=== PATIENT | female | born 1945 | race Caucasian/White ===

== ENCOUNTER 2016-10-25 19:04 | Observation (INO) ==
[2016-10-25] MEDS ORDERED: 0.9 % Sodium Chloride 500 ML IVC ONE (19:27)
[2016-10-25] MEDS ORDERED: Ondansetron 4 MG/2 ML VIAL IVP ONE (19:27)
--- NOTE | 2016-10-25 19:39 | Emergency Department Note ---
Disposition Clinical Impression: Dizziness, Vertigo, Near syncope, Gait difficulty Intractable headache Qualifiers: Headache type: unspecified Headache chronicity pattern: unspecified pattern Qualified Code(s): R51 - Headache Disposition: Admitted As Inpatient Condition: Fair Time of Disposition: 00:47 Headache HPI - General Chief Complaint: ED Headache Stated Complaint: vomiting this am/dizzy Time Seen by Provider: 10/25/16 19:24 Source: patient Mode of arrival: ambulatory Limitations: no limitations Nursing Notes Reviewed: Yes Vital Signs Reviewed: Yes - History of Present Illness HPI Narrative: 71-year-old female with acute onset headache this morning, patient's had multiple episodes of emesis throughout the day, she describes an 8 out of 10 throbbing aching right pentecostal radiating to the back or right side. She has also had dizziness and lightheadedness throughout the day. He feels very dehydrated. She does not have a history of aneurysms, or stroke. Pt Subjective Complaint: headache Onset (ago): hour(s) Onset description: sudden Location: frontal Pain Scale: 10 Quality: throbbing, pulsatile Improves with: nothing Associated symptoms: Reports: none, nausea, vomiting. Denies: chest pain, cough , diaphoresis, fever, malaise, photophobia, phonophobia, syncope, vision changes , SOB, numbness, weakness Treatments prior to arrival: none - Related Data Home Medications Medication Instructions Recorded Confirmed Aspirin 81 mg PO DAILY 06/01/16 06/01/16 Calcium Carbonate [Calcium] 600 mg PO BID 06/01/16 06/01/16 Cinnamon Bark [Cinnamon] 500 mg PO DAILY 06/01/16 06/01/16 Diltiazem HCl [Cardizem LA] 120 mg PO DAILY 06/01/16 06/01/16 Famotidine [Heartburn Prevention] 20 mg PO BID 06/01/16 06/01/16 Insulin ASPART [Novolog Flexpen] 0 unit SQ PRN PRN 06/01/16 06/01/16 Insulin Glargine,Hum.rec.anlog 25 unit SQ HS 06/01/16 06/01/16 [Lantus Solostar] Insulin Glargine,Hum.rec.anlog 35 unit SQ QAM 06/01/16 06/01/16 [Lantus Solostar] LORazepam [Ativan] 0.5 mg PO HS 06/01/16 06/01/16 Meclizine HCl [Verticalm] 25 mg PO Q6H PRN 06/01/16 06/01/16 Metformin HCl [Glucophage] 1,000 mg PO BID 06/01/16 06/01/16 Metoprolol [Lopressor] 25 mg PO BID 06/01/16 06/01/16 Nitroglycerin [Nitrostat] 0.4 mg SL AD PRN 06/01/16 06/01/16 Nystatin POWDER [Nystop] 1 appl TP DAILY 06/01/16 06/01/16 Pravastatin Sodium [Pravachol] 40 mg PO DAILY 06/01/16 06/01/16 Vitamin B Complex Vit C No.4 150 mg PO DAILY 06/01/16 06/01/16 [Super B Complex] Previous Rx's Medication Instructions Recorded Levofloxacin [Levaquin] 750 mg PO DAILY #5 tablet 06/04/16 Allergies Allergy/AdvReac Type Severity Reaction Status Date / Time No Known Allergies Allergy Verified 06/01/16 15:14 All systems ED: reviewed and negative except as stated. Constitutional: Denies: fever, chills ENT ED: Reports: as per HPI Cardiovascular: Reports: as per HPI. Denies: chest pain, palpitations Respiratory: Denies: cough, dyspnea Gastrointestinal: Reports: as per HPI, nausea, vomiting. Denies: abdominal pain Neurological: Reports: as per HPI, headache, vertigo. Denies: weakness, numbness, paresthesias, confusion, abnormal gait Headache PMH - Past Medical History Medical history: Reports: atrial fibrillation, coronary artery disease, diabetes , hyperlipidemia, hypertension Psychiatric history: Reports: no psych history - Social History Smoking Status: Never smoker Alcohol use: Reports: none Drug use: Reports: none Physical Exam Constitutional: Female appears stated age in mild distress appears uncomfortable. HEENT: NCAT, sclera anicteric, PERRLA bilaterally, normal external ears bilaterally, nasal septum nondeviated, average dentition, MMM Neck: normal inspection, neck is supple, trachea midline Resp: normal chest inspection, CTA bilaterally, no resp distress CV: RRR, no m/g/r GI: normal inspection, Soft, NTND, BS present Back: normal inspection, no tenderness to palpation Neuro: HINTS exam given normal head impulse test, equal upper and lower extremity muscle strength, DTRs normal upper and lower extremity is, pupils equal round reactive light accommodation, some bidirectional vertical nystagmus , reproduce symptoms with supine positioning however no unilateral segments appreciated on [place] Hall[place], somewhat ataxic from wheelchair to bed MSK: normal inspection, bilateral UE and LE with normal ROM Psych: normal mood, normal affect Skin: No rashes, skin warm, dry, intact - General Limitations: no limitations General appearance: alert Course Course Narrative: 8-year-old female with vertiginous symptoms, concerning neurologic exam for possible central lesion and given her symptoms she is very nauseated will try antiemetics, CT scan first and may need MRI or CTA, basic lab work reassess. - Reevaluation(s) Reevaluation #1: Psoas symptoms given Zofran and fluids we will give an additional liter of fluids, she does not appear to be in atrial fibrillation at this time, but she is not B hypertense will treat hypertension as needed, get MRI of the head, adding Reglan and Benadryl meclizine was ineffective in relieving her symptoms. Time: 21:11 Reevaluation #2: After imaging is negative, we tried road test the patient she was unable to ambulate, without reproducing her symptoms, she was mildly hypertensive systolic 180, still has a headache and feels dizzy and vertiginous when she tries to ambulate, given that she lives alone at home, is unsafe environment to discharge, I did state with the hospitalist and he agrees Dr. Tripp to accept the patient for admission Time: 00:46 Vital Signs Temperature 98.1 F 10/25/16 19:09 Pulse Rate 72 10/25/16 19:09 Respiratory Rate 18 10/25/16 19:09 Blood Pressure 187/82 10/25/16 19:09 O2 Sat by Pulse Oximetry 96 10/25/16 19:09 Temperature 98.1 F 10/25/16 19:09 Pulse Rate 74 10/25/16 21:54 Respiratory Rate 16 10/26/16 01:17 Blood Pressure 155/74 10/26/16 01:17 O2 Sat by Pulse Oximetry 95 10/25/16 21:54 Oxygen Delivery Oxygen Delivery Room Air Headache - MDM Narrative Medical decision making narrative: -year-old female with vertigo headache dizziness, admitted to medicine service for further workup. - Differential Diagnosis Differential Diagnosis: Likely: migraine, tension headache, subarachnoid hemorrhage, headache - Medical Records Medical records reviewed: Yes I reviewed the patient's medical records. - Lab Data Lab results reviewed: Yes I reviewed the patient's lab results. Result diagrams: 10/25/16 19:40 10/25/16 19:40 Lab Results 10/25/16 10/25/16 10/25/16 Range/Units 19:40 19:40 19:40 WBC 13.8 H (4.3-11.1) K/mcL RBC 4.71 (3.82-4.97) M/mcL Hgb 13.0 (11.5-15.4) g/dL Hct 41.4 (35.3-44.9) % MCV 87.9 (83.0-100.0) fL MCH 27.6 L (28.0-33.3) pg MCHC 31.4 L (31.6-35.5) g/dL RDW 14.1 (11.5-14.5) % Plt Count 284 (140-400) K/mcL MPV 11.8 (9.4-12.4) fL Immature Gran % 0.4 (0-4) % Seg Neutrophils % 87.2 % Lymphocytes % 8.5 % Monocytes % 3.6 % Eosinophils % 0.1 % Basophils % 0.2 % Neutrophils # 12.0 H (1.6-8.9) K/mcL Lymphocytes # 1.2 (0.6-4.6) K/mcL Monocytes # 0.5 (0.0-1.3) K/mcL Eosinophils # 0.0 (0.0-0.6) K/mcL Basophils # 0.0 (0.0-0.2) K/mcL PT 11.2 (9.4-12.1) Seconds INR 1.0 APTT 32.0 (26.0-36.0) Seconds Sodium 141 (136-145) mEq/L Potassium 3.7 (3.5-4.5) mEq/L Chloride 102 (98-109) mEq/L Carbon Dioxide 26 (19-29) mEq/L BUN 10 (7-20) mg/dL Creatinine 0.68 (0.57-1.11) mg/dL Est GFR ( Amer) > 60 (> 60) Est GFR (Non-Af Amer) > 60 (> 60) BUN/Creatinine Ratio 15 (6-26) Glucose 131 H (70-99) mg/dL POC Glucose (58-89) Calculated Osmolality 293 (280-300) Calcium 9.4 (8.6-10.8) mg/dL Troponin I (0-0.03) ng/mL Urine Color (Yellow) Urine Clarity (Clear) Urine pH (5.0-8.0) pH Units Ur Specific Raymond (1.010-1.025) Urine Protein (Neg-Trace) mg/dL Urine Glucose (UA) (Normal) mg/dL Urine Ketones (Negative) mg/dL Urine Blood (Negative) Urine Nitrite (Negative) Urine Bilirubin (Negative) Urine Urobilinogen (Normal) mg/dL Ur Leukocyte Esterase (Negative) Urine Microscopic RBC (0-3) per hpf Urine Microscopic WBC (0-3) per hpf Ur Squamous Epith Cells (None-Few) per lpf Urine Bacteria (None-Few) per hpf Hyaline Casts (None-Few) per lpf Ur Culture Indicated? (NO) 10/25/16 10/25/16 10/25/16 Range/Units 19:40 19:40 21:40 WBC (4.3-11.1) K/mcL RBC (3.82-4.97) M/mcL Hgb (11.5-15.4) g/dL Hct (35.3-44.9) % MCV (83.0-100.0) fL MCH (28.0-33.3) pg MCHC (31.6-35.5) g/dL RDW (11.5-14.5) % Plt Count (140-400) K/mcL MPV (9.4-12.4) fL Immature Gran % (0-4) % Seg Neutrophils % % Lymphocytes % % Monocytes % % Eosinophils % % Basophils % % Neutrophils # (1.6-8.9) K/mcL Lymphocytes # (0.6-4.6) K/mcL Monocytes # (0.0-1.3) K/mcL Eosinophils # (0.0-0.6) K/mcL Basophils # (0.0-0.2) K/mcL PT (9.4-12.1) Seconds INR APTT (26.0-36.0) Seconds Sodium (136-145) mEq/L Potassium (3.5-4.5) mEq/L Chloride (98-109) mEq/L Carbon Dioxide (19-29) mEq/L BUN (7-20) mg/dL Creatinine (0.57-1.11) mg/dL Est GFR ( Amer) (> 60) Est GFR (Non-Af Amer) (> 60) BUN/Creatinine Ratio (6-26) Glucose (70-99) mg/dL POC Glucose 131 H (58-89) Calculated Osmolality (280-300) Calcium (8.6-10.8) mg/dL Troponin I 0.02 (0-0.03) ng/mL Urine Color Yellow (Yellow) Urine Clarity Clear (Clear) Urine pH 7.5 (5.0-8.0) pH Units Ur Specific Raymond 1.019 (1.010-1.025) Urine Protein 30 H (Neg-Trace) mg/dL Urine Glucose (UA) Normal (Normal) mg/dL Urine Ketones 40 H (Negative) mg/dL Urine Blood Moderate H (Negative) Urine Nitrite Negative (Negative) Urine Bilirubin Negative (Negative) Urine Urobilinogen Normal (Normal) mg/dL Ur Leukocyte Esterase Negative (Negative) Urine Microscopic RBC 15-30 H (0-3) per hpf Urine Microscopic WBC 5-15 H (0-3) per hpf Ur Squamous Epith Cells Many H (None-Few) per lpf Urine Bacteria Few (None-Few) per hpf Hyaline Casts None Seen (None-Few) per lpf Ur Culture Indicated? YES A (NO) - Radiology Data Radiology results reviewed: Yes I reviewed the patient's radiology results. Chest X-Ray 10/25/16 19:27 IMPRESSION: No acute cardiopulmonary disease. D/ / 10/25/2016 20:01:21 Eleazar Schmidt MD / bcarter Interpreting Provider: Eleazar Schmidt MD Head CT 10/25/16 19:38 IMPRESSION: No acute intracranial abnormality. D/ / Gilmar Gonzalez MD / Gilmar Gonzalez MD Interpreting Provider: Gilmar Gonzalez MD Brain MRI 10/25/16 20:53 IMPRESSION: No acute infarct. D/ / Gilmar Gonzalez MD / Gilmar Gonzalez MD Interpreting Provider: Gilmar Gonzalez MD - EKG Data EKG attestation: Yes I reviewed and interpreted this EKG. EKG shows normal: sinus rhythm (73 bpm GA 200 QRS 109 QTC 411) Perry/QRS: LAHB/LAFB Interpretation: no acute changes, unchanged when compared to prior tracing (date ) (Previous EKG left anterior vesicular block is stable) - Core Measures AMI Core Measures Followed: No Measure Exclusions: not indicated Attestation Statement - Attestation Attestation: I, Aguilar Jaramillo MD, personally performed a history and physical exam of the patient and discussed their management with the resident. I reviewed the resident's note and agree with the documented findings, medical decision making , and plan of care. 71-year-old female persisted emergency department with a complaint of right sided headache associated with dizziness and vertigo with multiple episodes of nausea and vomiting. She has had symptoms most of the day. No fever. No difficulty with speech or swallowing. No focal numbness tingling or weakness. Patient lives alone. On examination patient is a well-developed obese elderly female in no acute distress. She is alert and oriented 3. There is no cyanosis or diaphoresis. No gross focal neurological deficits. Breath sounds are equal bilaterally. Heart regular rate and rhythm with a grade 2/6 systolic murmur. Abdomen is soft and nontender with normal bowel sounds. Labs reviewed. Head CT negative. MRI of the brain was also negative. Patient continued to have nausea and dizziness and difficulty standing or ambulating. The hospitalist, Dr. Tripp, was consulted and accepted admission of the patient.
[2016-10-25 19:47] LABS: Basophils % 0.2 %; Eosinophils % 0.1 %; Hematocrit 41.4 % (35.3-44.9); Immature Granulocytes % 0.4 % (0-4); Lymphocytes # 1.2 K/mcL (0.6-4.6); Lymphocytes % 8.5 %; Mean Corpuscular HGB Conc 31.4 g/dL (31.6-35.5); Mean Corpuscular Hemoglobin 27.6 pg (28.0-33.3); Mean Corpuscular Volume 87.9 fL (83.0-100.0); Mean Platelet Volume 11.8 fL (9.4-12.4); Monocytes # 0.5 K/mcL (0.0-1.3); Monocytes % 3.6 %; Platelet Count 284 K/mcL (140-400); Red Blood Count 4.71 M/mcL (3.82-4.97); Red Cell Distribution Width 14.1 % (11.5-14.5); Segmented Neutrophils % 87.2 %
[2016-10-25 19:52] LABS: Prothrombin Time 11.2 Seconds (9.4-12.1)
[2016-10-25 20:00] LABS: BUN/Creatinine Ratio 15 (6-26); Blood Urea Nitrogen 10 mg/dL (7-20); Calcium 9.4 mg/dL (8.6-10.8); Carbon Dioxide 26 mEq/L (19-29); Chloride 102 mEq/L (98-109); Glucose 131 mg/dL (70-99); Osmolality,Calculated 293 (280-300); Potassium 3.7 mEq/L (3.5-4.5); Sodium 141 mEq/L (136-145); eGFR For African Americans > 60 (> 60); eGFR For Non-African Americans > 60 (> 60)
[2016-10-25] MEDS ORDERED: *HR* HYDROmorphone (PF) 1 MG/ML SYRINGE IVP ONE (20:43)
[2016-10-25] MEDS ORDERED: 0.9 % Sodium Chloride 1,000 ML IV ONE (21:06)
[2016-10-25] MEDS ORDERED: Metoclopramide 10 MG/2 ML VIAL IVP ONE (21:06)
[2016-10-25 21:54] LABS: Bilirubin,Urine Negative (Negative); Blood,Urine Moderate (Negative); Clarity,Urine Clear (Clear); Color,Urine Yellow (Yellow); Glucose,Urine (UA) Normal (Normal); Ketones,Urine 40 mg/dL (Negative); Leukocyte Esterase,Urine Negative (Negative); Nitrite,Urine Negative (Negative); PH,Urine 7.5 pH Units (5.0-8.0); Protein,Urine 30 mg/dL (Neg-Trace); Specific Gravity,Urine 1.019 (1.010-1.025); Urobilinogen,Urine Normal (Normal)
[2016-10-25 21:56] LABS: Bacteria,Urine Few per hpf (None-Few); Hyaline Casts,Urine None Seen per lpf (None-Few); RBC,Urine 15-30 per hpf (0-3); Squamous Epithelial Cell,Urine Many per lpf (None-Few)
[2016-10-26] MEDS ORDERED: Nitroglycerin 0.4 MG TAB.SUBL SL PRN (03:23)
[2016-10-26] MEDS ORDERED: Acetaminophen 325 MG TABLET PO PRN (03:26)
[2016-10-26] MEDS ORDERED: *HR* Morphine 2 MG/ML SYRINGE IVP PRN (03:26)
[2016-10-26] MEDS ORDERED: *HR* OxyCODONE Immed Rel 5 MG TABLET PO PRN (03:26)
[2016-10-26] MEDS ORDERED: Ondansetron 4 MG/2 ML VIAL IVP PRN (03:26)
[2016-10-26] MEDS ORDERED: Naloxone 0.4 MG/ML INJ IVP PRN (03:26)
[2016-10-26] MEDS ORDERED: Scopolamine Patch 1.5 MG PATCH.TD72 TD ONE (03:33)
--- NOTE | 2016-10-26 03:35 | Internal Med History&Physical ---
Date of Encounter: 10/26/16 Time of Encounter: 03:00 Assessment and Plan (1) Postural dizziness with near syncope Status: Acute . (2) Positional vertigo Status: Acute . Qualifiers: Laterality: unspecified laterality Qualified Code(s): H81.10 - Benign paroxysmal vertigo, unspecified ear (3) PAF (paroxysmal atrial fibrillation) Status: Acute . (4) Ataxic gait Status: Acute . (5) Type 2 diabetes mellitus Status: Chronic . Qualifiers: Diabetes mellitus complication status: with unspecified complications Diabetes mellitus half-way insulin use: without long term care social worker use Qualified Code( s): E11.8 - Type 2 diabetes mellitus with unspecified complications (6) HTN (hypertension) Status: Chronic . Qualifiers: Hypertension type: essential hypertension Qualified Code(s): I10 - Essential (primary) hypertension (7) HLD (hyperlipidemia) Status: Chronic . Qualifiers: Hyperlipidemia type: mixed hyperlipidemia Qualified Code(s): E78.2 - Mixed hyperlipidemia (8) CAD (coronary artery disease), [place] coronary artery Status: Chronic . Qualifiers: [place] vs. transplanted heart: [place] heart Associated angina: angina presence unspecified Qualified Code(s): I25.10 - Atherosclerotic heart disease of [place] coronary artery without angina pectoris (9) Obesity (BMI 30-39.9) Status: Chronic . (10) At risk for accident in home Status: Acute . (11) At risk for acid-base imbalance Status: Acute . (12) At risk for acute ischemic cardiac event Status: Acute . (13) Abnormal urinalysis Status: Acute . (14) Generalized weakness Status: Acute . (15) Intractable headache Status: Acute . Qualifiers: Headache type: unspecified Headache chronicity pattern: unspecified pattern Qualified Code(s): R51 - Headache (16) Nausea vomiting and diarrhea Status: Acute . (17) Electrolyte and fluid disorders not elsewhere classified Status: Acute . (18) Hypoxemia Status: Acute . Internal Medicine - H&P: HPI Chief complaint: Severe headache nausea vomiting dizziness Admitted From: Emergency Dept Plans for Post Hospital Care: Home History of present illness: Ms. Cyr is a 71 year old female with medical history significant for type II DM, hypertension, dyslipidemia, arthritis, osteopenia, paroxysmal atrial fibrillation, GERD, periodic positional vertigo, CAD, obesity, nonsmoker. The patient was visited and interviewed and examined. The patient was admitted to [facility] via the emergency department which presents with complaints of intractable headache associated with multiple episodes of emesis and generalized malaise. She began the morning of the presentation upon arising from sleep. The headache escalated promptly throughout the morning to an 8/10 in severity. Dropping constant focus primarily to the right sabianist and radiating up along the right side to occiput. She noted associated lightheadedness and dizziness throughout the day. She still generally weak and dehydrated. Gait was affected to be unsteady to the extent where she would leave into boswell, stumble and fall. Headache pain when most severe was rated as a 10/10 severity with a throbbing pulsatile quality. He denied any associated scotomata. Denied any prodromal aura taste sensation smell. She has experienced some sinus congestion and nasal stuffiness prior to onset of current symptoms. Denies any altered hearing tinnitus or ear pain. Denies any overt chest pain abdominal pain. Denied any upper or lower respiratory complaints of cough sputum production. Denied fever chills or sweats. I had photophobia. No paresthesias or weakness slurred speech the positional dizziness and vertiginous symptoms with the room spinning about her head were noted times. Her cataracts to sit to void following symptoms of near syncope. These symptoms have been pretty stereotypic of previous episodes which have seemed similar to be short lived. Formal diagnosis has not been given for these events. He is not undergone any formal ear nose and throat or neurology consulting opinions. Findings in the ED: Temperature 98.1 pulse 70-74 respirations 14-18 BP 180-170/ 75-82. O2 saturation 93-96% room air. WBC 13.8 hemoglobin 13 platelets 284, 000. MCH 27.6 MCHC 31.4. Differential showed an increase in neutrophils. PT 11.2 INR 1 PTT 32. Metabolic panel normal. BUN and creatinine 0.68. Glucose 131 and osmolality 293. Troponin 0.02. Urinalysis findings large protein. Large ketone. Moderate blood. PRBC. 15 WBC. Many epithelial cells. Bacteria. Portable chest x-ray demonstrated no acute or active cardiopulmonary disease. Calcified granuloma left lung base noted. Sclera focal mass infiltrate or effusion. Heart and mediastinal structures stable. CT had scan without contrast demonstrated no acute intracranial abnormality. Mild nonspecific periventricular white matter hypodensities. Calcified granuloma left frontal lobe. No intracranial mass, shift, bleed, infarct or fluid collection seen. Mobitz sinuses soft tissue and skull. MRI brain without contrast demonstrates no acute infarct. Volume loss with chronic white matter microvascular ischemic disease noted. No mass, shift, bleed or fluid collection seen. sinuses dose soft tissues benign. EKG normal sinus rhythm. Left anterior fascicular block. Rate 73. No acute ischemic changes. Preliminary impressions suggest benign periodic positional vertigo exacerbation in patient with prior history of such. Association of intractable headaches and somatic complaints of nausea vomiting diarrhea is question of possible inciting event such as viral syndrome. The headache itself may suggest a migraine equivalent with vertiginous complaints as a consequence of a complicated migraine picture. She has not undergone any formal ear nose and throat or neurologic assessments over the years although she has been treated empirically with meclizine by a primary care physicians for this condition. The meclizine treatment however she is found to be at times a ineffective. A prescription to be less so prior to this admission. She acknowledges chronic recurring sinusitis complaints and reports subsequent symptoms of this presently. Exam however is rather benign except for evident exacerbation of vertiginous symptoms with movement and headache complaints. Screening studies thus far suggests a relative systemic inflammatory response syndrome. Sepsis criteria are not met that this presentation nor is a specific site of infection apparent. The repetitive nature of these symptoms motivates formal evaluation to rule out potential vascular lesion of concern (such as, basilar artery insuffiency) versus mass versus acute thrombosis/ischemia, etc.. The patient is at risk for acute clinical decline and morbidity given her presenting symptoms, findings and coronary disease workup and treatment progress comprehensively. Cumulative laboratory and radiographic data base was reviewed, considered and discussed. Pertinent ancillary medical records including ECW and PCI documentation was reviewed and considered. Given the patient's presenting concerns, past medical history, clinical findings and symptoms, she is admitted at this time will undergo further evaluation and disposition. Orders were written as per the computerized physician tinning machine set up operator system.......................................................................... .................... Consultative opinions will be sought as clinical circumstances justify. Pain management needs will be addressed. Laboratory and radiographic data base will be updated as appropriate. Studies include: Cultures of blood and urine, prolactin,PT,INR,APTT, cardiac injury panel, BNP, metabolic and hematologic panel, magnesium, phosphorus, ionized calcium, thyroid panel, lipid profile, A1c, C-peptide, CRP, sedimentation rate, blood gas, lactic acid, UA, serologies, etc. Precautions: Aspiration, fall, delirium protocol/surveillance initiated. Telemetry with continuous hemodynamic monitoring and pulse oximetry initiated. Orthostatic vital signs. Empiric antibiotic coverage: Intravenous Rocephin pending diagnostics/culture data (?UTI ?URI). Special studies: CT head,MRI brain, MRA head and neck, chest x-ray, telemetry, EKG, echocardiogram. Pulmonary toilet: Incentive spirometry. Aerosol bronchodilator, mucolytic, antitussivePRN. Supplemental oxygen. Corticosteroid therapyPRN. CPAP/BiPAP supplemental oxygen deliveryprn. Aerosol Mucomyst therapyprnPRN. Fluid and electrolyte repletion efforts will proceed. Careful attention to fluid balance and renal recovery will be emphasized. Avoidance of nephrotoxic exposure and adverse drug drug interaction in the setting of impaired renal function will be monitored closely. Acute coronary syndrome protocol/surveillance initiated. Acute FURNITURE [employer]IC[employer] injury protocol/surveillance initiated. Empiric treatment for vertigo initiated. These include scopolamine patch and scheduled meclizine. Prokinetic probiotic antiemetic therapies. Intranasal steroid (Flonase), Mucinex, loratadine given treatments initiated. DVT and PUD prophylaxis initiated: PPI/H2 paloma therapy, intermittent pneumatic cuffs/TEDs. Subcutaneous heparin. Early ambulation will be encouraged. Immunization updates recommended. Influenza and pneumococcal vaccinations as part of ongoing preventative healthcare recommendations strongly recommended. Smoking cessation counseling briefly addressed. Patient is a nonsmoker. Advanced care directive discussion briefly addressed. Patient does not declare any healthcare restrictions at this time. Cardiovascular risk appraisal and cardiovascular risk reduction efforts will be emphasized. Physical and occupational therapy consulted to evaluate/assess patient's functional capacity and progress mobility aS her circumstances PERMIT. Sliding scale insulin coverage, ADA dietary restraint and schedule an as-needed basis fingerstick glucose assessments were initiated. Nutrition/diabetes education counseling may be considered as circumstances justify. Outpatient medication schedules will be reviewed, confirmed and facilitated as appropriate. Reconciliation of home treatments including adjustments, substitutions and reintroduction into the treatment regimen will address necessary maintenance therapies for chronic pre-existing medical conditions. Plan of care has been reviewed and discussed in detail with the patient. Questions addressed. Hospital course dictated by clinical findings, treatment response and potential consultative interventions. Patient is at risk for further acute clinical decline and morbidity due to her advance age, presenting chief complaints, findings and comorbidities. Condition is serious. Prognosis is guarded. CODE STATUS is full. Past Med Surg Social Fam HX - Past Medical History Source: old records reviewed Medical history: arthritis, atrial fibrillation, coronary artery disease, diabetes, GERD, hyperlipidemia, hypertension, osteoporosis, other (H/O ?benign periodic positional vertigo) Psychiatric history: anxiety, other - Past Surgical History Surgical History: non-contributory, other - Social History Smoking Status: Never smoker Smokeless Tobacco Status: No Alcohol use: none Drug use: none Occupational status: retired Current living situation: Home - Independent Activity Level: Independent ambulation, Mostly sedentary Recent Out of Country Travel Within the Last 8 Weeks: No Exposure or Possible Exposure to Illness During Travel: No - Family History Brother Hx Family Endocrine Disorder: Yes (DIABETES MELLITUS.) Mother Living Status: Hx Family Cardiac Disorders: Yes Hx Family Respiratory Disorders: Yes Hx Family Cancer: Yes Hx Family GI Disorders: No Hx Family Endocrine Disorder: Yes Hx Family Neuromuscular Disorders: No Hx Family Neurologic Disorders: No Hx Family HEENT Disorders: Yes Hx Family Autoimmune Disorders: No Internal Medicine - H&P: Meds Aspirin 81 mg PO DAILY 06/01/16 [History] Calcium Carbonate [Calcium] 600 mg PO BID 06/01/16 [History] Cinnamon Bark [Cinnamon] 500 mg PO DAILY 06/01/16 [History] Diltiazem HCl [Cardizem LA] 120 mg PO DAILY 06/01/16 [History] Famotidine [Heartburn Prevention] 20 mg PO BID 06/01/16 [History] Insulin ASPART [Novolog Flexpen] 7 - 15 unit SQ TID PRN 06/01/16 [History] Insulin Glargine,Hum.rec.anlog [Lantus Solostar] 25 unit SQ HS 06/01/16 [History ] Insulin Glargine,Hum.rec.anlog [Lantus Solostar] 35 unit SQ QAM 06/01/16 [ History] LORazepam [Ativan] 0.5 mg PO HS 06/01/16 [History] Meclizine HCl [Verticalm] 25 mg PO Q6H PRN 06/01/16 [History] Metformin HCl [Glucophage] 1,000 mg PO BID 06/01/16 [History] Metoprolol [Lopressor] 25 mg PO BID 06/01/16 [History] Nitroglycerin [Nitrostat] 0.4 mg SL AD PRN 06/01/16 [History] Nystatin POWDER [Nystop] 1 appl TP DAILY 06/01/16 [History] Pravastatin Sodium [Pravachol] 40 mg PO DAILY 06/01/16 [History] Vitamin B Complex Vit C No.4 [Super B Complex] 150 mg PO DAILY 06/01/16 [History ] Docusate [Colace] 100 - 200 mg PO DAILY PRN 10/26/16 [History] Lisinopril [Zestril] 10 mg PO DAILY 10/26/16 [History] Cefdinir [Omnicef] 300 mg PO BID #10 capsule 10/27/16 [Rx] Fluticasone Propionate Nasal [Flonase] 50 mcg NS DAILY #1 bottle 10/27/16 [Rx] GuaiFENesin ER [Mucinex] 600 mg PO BID #14 tbbp.12hr 10/27/16 [Rx] Loratadine [Claritin] 10 mg PO DAILY #30 tablet 10/27/16 [Rx] Meclizine [Antivert] 12.5 mg PO QID PRN #20 tablet 10/27/16 [Rx] Allergies latex Allergy (Unknown, Verified 10/26/16 08:52) See Comments Listed on patient's ECW account with no reaction given- All Systems PM: A 10-system review of systems was performed and is negative for pertinent findings except as documented above in the HPI. - Constitutional Constitutional: as per HPI, malaise, no chills, no fever(s), no night sweats - EENT Eyes: as per HPI, no change in vision, no discharge, no pain, no photophobia, no seeing flashes, no spots in vision, no tunnel vision Ears: as per HPI, no decreased hearing, no ear discharge, no ear pain, no tinnitus Nose, mouth and throat: as per HPI, nasal congestion, sinus pressure, no dysphagia, no nasal discharge, no neck pain, no sore throat - Cardiovascular Cardiovascular ROS IM: as per HPI, other, no chest pain, no diaphoresis, no dyspnea, no lightheadedness, no palpitations, no syncope - Respiratory Respiratory: as per HPI, no cough, no dyspnea, no wheezing, no excessive phlegm production - Gastrointestinal Gastrointestinal: as per HPI, nausea, vomiting, no abdominal pain, no diarrhea, no hematemesis, no hematochezia, no melena - Genitourinary Genitourinary: as per HPI, no change in urinary stream, no dysuria, no flank pain, no hematuria - Musculoskeletal Musculoskeletal ROS IM: as per HPI, no numbness, no tingling - Integumentary Integumentary IM: as per HPI, no rash, no unusual bruising - Neurological Neurological ROS: as per HPI, abnormal gait, dizziness, headache(s), lack of coordination, vertigo, no confusion, no convulsions, no focal weakness, no loss of vision, no numbness, no tingling, no tremor(s) - Psychiatric Psychiatric: as per HPI - Endocrine Endocrine IM: as per HPI - Hematologic/Lymphatic Hematologic/Lymphatic: as per HPI, no easy bruising - Allergic/Immunologic Allergic/Immunologic: as per HPI - Constitutional Vitals: Temp Pulse Resp BP Pulse Ox 98.8 F 108 16 150/77 94 L 10/26/16 01:50 10/26/16 01:50 10/26/16 01:50 10/26/16 01:50 10/26/16 01:50 General appearance: Present: cooperative, mild distress, A&O X 3, obese, answers questions appropriately - Head Head exam: Present: atraumatic, normocephalic - Eye Eye exam: Present: EOMI, PERRL, conjuntiva pink, sclera anicteric Pupils: Present: normal accommodation, PERRL - ENT ENT exam: Present: mucous membranes moist, normal oropharynx - Neck Neck exam general surgery: Present: full ROM, supple, trachea midline. Absent: lymphadenopathy, tenderness, nuchal rigidity - Respiratory Respiratory exam: Present: decreased breath sounds, CTAB. Absent: accessory muscle use, rales, rhonchi, wheezes - Cardiovascular Cardiovascular exam: Present: irregular rhythm, +S1, +S2. Absent: diastolic murmur, gallop, rubs, systolic murmur - GI/Abdominal GI/Abdominal exam: Present: normal bowel sounds, soft, no peritoneal signs. Absent: distended, tenderness - Extremities Exam Extremities exam: Present: full ROM, warm, radial pulses palpable and symetrical. Absent: calf tenderness, cyanotic, pedal edema - Neurological Exam Neurological exam: Present: alert, altered, CN II-XII intact, oriented X3, no focal deficits, strengths equal and symetr throughout. Absent: pronater drift, facial droop, speech deficit - Expanded Neurological Exam Neurological exam expanded: Present: ataxia, protecting the airway. Absent: expressive aphasia, receptive aphasia Patient oriented to: Present: person, place, time Speech: Present: fluid speech Cranial Nerves: EOM's intact PM: Normal, gag reflex PM: Normal, nystagmus PM: Normal, tongue deviation PM: Normal Ataxia: Present: yes Upper motor neuron: Babinski sign: Normal, Jourdan neglect: Normal, pronator drift : Normal, sensory extinction: Normal Neuro motor strength exam: LUE: 5, RUE: 5, LLE: 5, RLE: 5 Coma Scale Eye Opening: Spontaneous Coma Scale Motor Response: Obeys Commands Coma Scale Verbal Response: Oriented Coma Scale Total: 15 - Psychiatric Psychiatric exam: Present: anxious, normal affect, normal mood - Skin Skin exam: Present: dry, intact, warm. Absent: petechiae, rash, urticaria, vesicles Internal Med - H&P Results - Labs CBC & Chem 7: 10/27/16 04:32 10/27/16 04:32 - Impressions Vital Signs Temp Pulse Resp BP Pulse Ox 10/27/16 11:41 98.0 F 85 17 162/76 94 L 10/27/16 07:21 98.1 F 77 18 171/77 93 L 10/27/16 04:11 98.4 F 64 16 156/65 92 L 10/26/16 23:30 99.0 F 74 16 147/73 92 L Intake and Output 10/27/16 10/27/16 10/27/16 07:59 15:59 23:59 Intake Total 1000 / 1000 1160 / 1160 Balance 1000 / 1000 1160 / 1160 Intake: IV Fluids 1000 / 1000 0.9 % Sodium Chloride 1, 1000 / 1000 000 ML @ 50 mls/hr IVC . Q20H TRI Rx#:[id number] Oral 1160 / 1160 Other: Meal Breakfast Percent of Meal Consumed 100% Stool Size Large # Voids 1 # Bowel Movements 1 Weight 113.4 kg Blood Glucose* 71 235 Patient Weight 10/27/16 23:59 Weight 113.4 kg Short CBC 10/27/16 Range/Units 04:32 WBC 9.0 (4.3-11.1) K/mcL Hgb 10.2 L D (11.5-15.4) g/dL Hct 33.2 L (35.3-44.9) % Plt Count 217 (140-400) K/mcL Neutrophils # 6.0 (1.6-8.9) K/mcL BMP 10/27/16 Range/Units 04:32 Sodium 140 (136-145) mEq/L Potassium 3.1 L (3.5-4.5) mEq/L Chloride 104 (98-109) mEq/L Carbon Dioxide 26 (19-29) mEq/L BUN 9 (7-20) mg/dL Creatinine 0.60 (0.57-1.11) mg/dL Glucose 49 L (70-99) mg/dL Calcium 8.4 L (8.6-10.8) mg/dL Cardiac Enzymes 10/26/16 Range/Units 22:43 Troponin I 0.04 H* (0-0.03) ng/mL Abnormal lab results RBC 3.75 M/mcL (3.82-4.97) L 10/27/16 04:32 Hgb 10.2 g/dL (11.5-15.4) L D 10/27/16 04:32 Hct 33.2 % (35.3-44.9) L 10/27/16 04:32 MCH 27.2 pg (28.0-33.3) L 10/27/16 04:32 MCHC 30.7 g/dL (31.6-35.5) L 10/27/16 04:32 RDW 14.6 % (11.5-14.5) H 10/27/16 04:32 Potassium 3.1 mEq/L (3.5-4.5) L 10/27/16 04:32 Glucose 49 mg/dL (70-99) L 10/27/16 04:32 POC Glucose 123 (58-89) H 10/26/16 19:39 Hemoglobin A1c 6.7 % (-5.6) H 10/26/16 04:13 Calcium 8.4 mg/dL (8.6-10.8) L 10/27/16 04:32 Troponin I 0.04 ng/mL (0-0.03) H* 10/26/16 22:43 LDL Cholesterol, Calc 100 mg/dL (0-99) H 10/26/16 04:13 Urine Protein 30 mg/dL (Neg-Trace) H 10/25/16 21:40 Urine Ketones 40 mg/dL (Negative) H 10/25/16 21:40 Urine Blood Moderate (Negative) H 10/25/16 21:40 Urine Microscopic RBC 15-30 per hpf (0-3) H 10/25/16 21:40 Urine Microscopic WBC 5-15 per hpf (0-3) H 10/25/16 21:40 Ur Squamous Epith Cells Many per lpf (None-Few) H 10/25/16 21:40 Ur Culture Indicated? YES (NO) A 10/25/16 21:40 Allergies Allergy/AdvReac Type Severity Reaction Status Date / Time latex Allergy Unknown See Verified 10/26/16 08:52 Comments Laboratory Results WBC 9.0 K/mcL (4.3-11.1) 10/27/16 04:32 RBC 3.75 M/mcL (3.82-4.97) L 10/27/16 04:32 Hgb 10.2 g/dL (11.5-15.4) L D 10/27/16 04:32 Hct 33.2 % (35.3-44.9) L 10/27/16 04:32 MCV 88.5 fL (83.0-100.0) 10/27/16 04:32 MCH 27.2 pg (28.0-33.3) L 10/27/16 04:32 MCHC 30.7 g/dL (31.6-35.5) L 10/27/16 04:32 RDW 14.6 % (11.5-14.5) H 10/27/16 04:32 Plt Count 217 K/mcL (140-400) 10/27/16 04:32 MPV 12.4 fL (9.4-12.4) 10/27/16 04:32 Immature Gran % 0.4 % (0-4) 10/27/16 04:32 Seg Neutrophils % 66.6 % 10/27/16 04:32 Lymphocytes % 20.6 % 10/27/16 04:32 Monocytes % 9.9 % 10/27/16 04:32 Eosinophils % 2.2 % 10/27/16 04:32 Basophils % 0.3 % 10/27/16 04:32 Neutrophils # 6.0 K/mcL (1.6-8.9) 10/27/16 04:32 Lymphocytes # 1.9 K/mcL (0.6-4.6) 10/27/16 04:32 Monocytes # 0.9 K/mcL (0.0-1.3) 10/27/16 04:32 Eosinophils # 0.2 K/mcL (0.0-0.6) 10/27/16 04:32 Basophils # 0.0 K/mcL (0.0-0.2) 10/27/16 04:32 PT 11.2 Seconds (9.4-12.1) 10/25/16 19:40 INR 1.0 10/25/16 19:40 APTT 32.0 Seconds (26.0-36.0) 10/25/16 19:40 Sodium 140 mEq/L (136-145) 10/27/16 04:32 Potassium 3.1 mEq/L (3.5-4.5) L 10/27/16 04:32 Chloride 104 mEq/L (98-109) 10/27/16 04:32 Carbon Dioxide 26 mEq/L (19-29) 10/27/16 04:32 BUN 9 mg/dL (7-20) 10/27/16 04:32 Creatinine 0.60 mg/dL (0.57-1.11) 10/27/16 04:32 Est GFR ( Amer) > 60 (> 60) 10/27/16 04:32 Est GFR (Non-Af Amer) > 60 (> 60) 10/27/16 04:32 BUN/Creatinine Ratio 15 (6-26) 10/27/16 04:32 Glucose 49 mg/dL (70-99) L 10/27/16 04:32 POC Glucose 123 (58-89) H 10/26/16 19:39 Est Mean Plasma Glucose 146 mg/dl 10/26/16 04:13 Hemoglobin A1c 6.7 % (-5.6) H 10/26/16 04:13 Calculated Osmolality 286 (280-300) 10/27/16 04:32 Calcium 8.4 mg/dL (8.6-10.8) L 10/27/16 04:32 Phosphorus 2.9 mg/dL (2.3-4.7) 10/26/16 04:13 Magnesium 1.6 mg/dL (1.6-2.6) 10/27/16 04:32 Troponin I 0.04 ng/mL (0-0.03) H* 10/26/16 22:43 Triglycerides 102 mg/dL (< 150) 10/26/16 04:13 Cholesterol 170 mg/dL (< 200) 10/26/16 04:13 LDL Cholesterol, Calc 100 mg/dL (0-99) H 10/26/16 04:13 VLDL Cholesterol, Calc 20 mg/dL (< 31) 10/26/16 04:13 HDL Cholesterol 50 mg/dL (40-59) 10/26/16 04:13 Cholesterol/HDL Ratio 3.4 (0-4.9) 10/26/16 04:13 Urine Color Yellow (Yellow) 10/25/16 21:40 Urine Clarity Clear (Clear) 10/25/16 21:40 Urine pH 7.5 pH Units (5.0-8.0) 10/25/16 21:40 Ur Specific Happy 1.019 (1.010-1.025) 10/25/16 21:40 Urine Protein 30 mg/dL (Neg-Trace) H 10/25/16 21:40 Urine Glucose (UA) Normal mg/dL (Normal) 10/25/16 21:40 Urine Ketones 40 mg/dL (Negative) H 10/25/16 21:40 Urine Blood Moderate (Negative) H 10/25/16 21:40 Urine Nitrite Negative (Negative) 10/25/16 21:40 Urine Bilirubin Negative (Negative) 10/25/16 21:40 Urine Urobilinogen Normal mg/dL (Normal) 10/25/16 21:40 Ur Leukocyte Esterase Negative (Negative) 10/25/16 21:40 Urine Microscopic RBC 15-30 per hpf (0-3) H 10/25/16 21:40 Urine Microscopic WBC 5-15 per hpf (0-3) H 10/25/16 21:40 Ur Squamous Epith Cells Many per lpf (None-Few) H 10/25/16 21:40 Urine Bacteria Few per hpf (None-Few) 10/25/16 21:40 Hyaline Casts None Seen per lpf (None-Few) 10/25/16 21:40 Ur Culture Indicated? YES (NO) A 10/25/16 21:40 Specimen Rejected Volume 10/26/16 10:30 Impressions Chest X-Ray 10/25/16 19:27 IMPRESSION: No acute cardiopulmonary disease. D/ /25/2016 20:01:21 Eleazar Schmidt MD / [email or web address] Interpreting Provider: Eleazar Schmidt MD Head CT 10/25/16 19:38 IMPRESSION: No acute intracranial abnormality. D/ / Gilmar Gonzalez MD / Gilmar Gonzalez MD Interpreting Provider: Gilmar Gonzalez MD Brain MRI 10/25/16 20:53 IMPRESSION: No acute infarct. D/ / Gilmar Gonzalez MD / Gilmar Gonzalez MD Interpreting Provider: Gilmar Gonzalez MD Head MRA 10/26/16 06:26 IMPRESSION: No significant abnormality of the intracranial circulation. D/ / 10/26/2016 15:10:06 Nahomi Alatorre MD / Mercedes Trevino Interpreting Provider: Nahomi Alatorre MD Neck MRA 10/26/16 06:26 IMPRESSION: Motion artifact degrades the images. No significant abnormality of the neck vessels is identified. D/ / 10/26/2016 15:17:31 Nahomi Alatorre MD / tari Interpreting Provider: Nahomi Alatorre MD
[2016-10-26] MEDS ORDERED: *HR* Dextrose 50 % in Water (Syg) 50 ML SYRINGE IVP PRN (03:46)
[2016-10-26] MEDS ORDERED: Dextrose Gel 15 GM PO PRN ×2 (03:46)
[2016-10-26] MEDS ORDERED: D5% in Water 1,000 ML IV PRN (03:46)
[2016-10-26] MEDS: 0.9 % Sodium Chloride 1,000 ML IVC SCH (04:55)
[2016-10-26 04:56] LABS: Hemoglobin A1C 6.7 %
[2016-10-26 05:02] LABS: Chol/HDL Ratio 3.4 (0-4.9); Magnesium 1.2 mg/dL (1.6-2.6); Phosphorous 2.9 mg/dL (2.3-4.7)
[2016-10-26] MEDS ORDERED: Insulin DETEMIR 100 UNIT/ML X5UNITS SQ SCH ×2 (06:00→21:00)
[2016-10-26] MEDS ORDERED: Ketorolac 30 MG/ML VIAL IVP ONE (06:22)
[2016-10-26] MEDS ORDERED: Magnesium Sulfate 2 GM in D5% in Water 100 ML IVPB STA (06:22)
[2016-10-26] MEDS: Insulin LISPRO 300 UNITS/3 ML VIAL SQ SCH ×3 (08:07→17:21)
[2016-10-26] MEDS: Fluticasone Propionate Nasal 50 MCG/SPRAY BOTTLE NS SCH (08:14)
[2016-10-26] MEDS: Nystatin POWDER 30 GM BOTTLE TP SCH (08:14)
[2016-10-26] MEDS: Aspirin 81 MG TAB.CHEW PO SCH (08:15)
[2016-10-26] MEDS: Famotidine 20 MG TABLET PO SCH ×2 (08:15→20:36)
[2016-10-26] MEDS: Diltiazem CD (24hr) 120 MG CAPSULE PO SCH (08:15)
[2016-10-26] MEDS: Loratadine 10 MG TABLET PO SCH (08:15)
[2016-10-26] MEDS ORDERED: *HR* LORazepam 2 MG/ML VIAL IVP ONE (08:39)
--- NOTE | 2016-10-26 13:34 | Event Note ---
<Aminta Moreau - Last Filed: 10/26/16 13:25> Date of Encounter: 10/26/16 Time of Encounter: 13:15 Pt fell exiting bathroom today. She denies chest pain, sob, dizziness, lightheadedness at time of fall. She states, "It was just me being clumsy." Pt states that she hit her R elbow. There is no visible sign of injury to elbow, normal ROM without crepitus, and pt refuses xray. She denies any other injury and denies hitting her head. Reminded pt to please put on her call light and wait for assistance prior to getting out of bed, she verbalizes understanding and agreement. Pt is aware that if she does discover any injuries from this fall , that she may notify the nurse and we will be happy to reexamine her. <Lizbeth Jolly - Last Filed: 10/26/16 15:05> Date of Encounter: 10/26/16 Time of Encounter: 14:00 Patient seen and examined. On examination, patient resting supine in bed. Patient is alert and oriented x3 and states she is went to the bathroom and as she was ambulating back to her bed, she states that she lost her footing and slowly lowered herself down to the ground. She denies any injuries or loss of consciousness. She describes a mechanical fall. She denies hitting her head. Head CT negative. Chest x-ray negative. Abnormal urinalysis noted, we will continue ceftriaxone. Brain MRI negative for acute processes. MRA pending. Spoke to patient regarding her CODE STATUS, she would like to be a full code. OT and PT consultations are pending. Patient stating her nausea and vomiting is currently controlled. She is endorsing a mild headache but states it has gotten better. She states that her pleuritic vision has resolved. Hypomagnesemia noted, repleting and will trend. Hypertension noted, home dose of lisinopril continued. We will continue to trend. ITS Impressions Chest X-Ray 10/25/16 19:27 IMPRESSION: No acute cardiopulmonary disease. D/ /25/2016 20:01:21 Eleazar Schmidt MD / cinda Interpreting Provider: Eleazar Schmidt MD Head CT 10/25/16 19:38 IMPRESSION: No acute intracranial abnormality. D/ / Gilmar Gonzalez MD / Gilmar Gonzalez MD Interpreting Provider: Gilmar Gonzalez MD Brain MRI 10/25/16 20:53 IMPRESSION: No acute infarct. D/ / Gilmar Gonzalez MD / Gilmar Gonzalez MD Interpreting Provider: Gilmar Gonzalez MD
--- NOTE | 2016-10-26 17:03 | Electrocardiograph Report ---
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
[2016-10-26] MEDS ORDERED: Insulin LISPRO 300 UNITS/3 ML VIAL SQ SCH (21:00)
[2016-10-26] MEDS ORDERED: *HR* LORazepam 0.5 MG TABLET PO SCH (21:00)
[2016-10-27 06:40] LABS: Basophils % 0.3 %; Eosinophils # 0.2 K/mcL (0.0-0.6); Eosinophils % 2.2 %; Hematocrit 33.2 % (35.3-44.9); Immature Granulocytes % 0.4 % (0-4); Lymphocytes # 1.9 K/mcL (0.6-4.6); Lymphocytes % 20.6 %; Mean Corpuscular HGB Conc 30.7 g/dL (31.6-35.5); Mean Corpuscular Hemoglobin 27.2 pg (28.0-33.3); Mean Corpuscular Volume 88.5 fL (83.0-100.0); Mean Platelet Volume 12.4 fL (9.4-12.4); Monocytes # 0.9 K/mcL (0.0-1.3); Monocytes % 9.9 %; Platelet Count 217 K/mcL (140-400); Red Blood Count 3.75 M/mcL (3.82-4.97); Red Cell Distribution Width 14.6 % (11.5-14.5); Segmented Neutrophils % 66.6 %
[2016-10-27 06:42] LABS: Hemoglobin 10.2 g/dL (11.5-15.4)
[2016-10-27 06:54] LABS: BUN/Creatinine Ratio 15 (6-26); Blood Urea Nitrogen 9 mg/dL (7-20); Calcium 8.4 mg/dL (8.6-10.8); Carbon Dioxide 26 mEq/L (19-29); Chloride 104 mEq/L (98-109); Glucose 49 mg/dL (70-99); Osmolality,Calculated 286 (280-300); Potassium 3.1 mEq/L (3.5-4.5); Sodium 140 mEq/L (136-145); eGFR For African Americans > 60 (> 60); eGFR For Non-African Americans > 60 (> 60)
[2016-10-27] MEDS ORDERED: Potassium Chloride Elixir 20 MEQ/15 ML UDC PO ONE (08:15)
[2016-10-27] MEDS: Insulin LISPRO 300 UNITS/3 ML VIAL SQ SCH ×2 (08:47→12:04)
[2016-10-27] MEDS ORDERED: Insulin DETEMIR 100 UNIT/ML X5UNITS SQ SCH (09:00)
[2016-10-27] MEDS: Aspirin 81 MG TAB.CHEW PO SCH (09:02)
[2016-10-27] MEDS: Diltiazem CD (24hr) 120 MG CAPSULE PO SCH (09:03)
[2016-10-27] MEDS: Loratadine 10 MG TABLET PO SCH (09:03)
[2016-10-27] MEDS: Famotidine 20 MG TABLET PO SCH (09:04)
[2016-10-27] MEDS: Fluticasone Propionate Nasal 50 MCG/SPRAY BOTTLE NS SCH (09:06)
[2016-10-27] MEDS: Nystatin POWDER 30 GM BOTTLE TP SCH (09:07)
[2016-10-27] MEDS: 0.9 % Sodium Chloride 1,000 ML IVC SCH (09:08)
[2016-10-27 11:46] VITALS: BP 162/76
--- NOTE | 2016-10-27 12:40 | Discharge Summary ---
Date of Encounter: 10/27/16 Time of Encounter: 09:30 - Discharge Diagnosis (1) Near syncope Priority: Primary Status: Resolved Comments: Workup essentially negative except for abnormal urinalysis. Chest x-ray negative. Head CT negative. Brain MRI negative. Brain and neck MRA negative. Treated with ceftriaxone while admitted, was sent home on Omnicef. The T and PT surmised she had no needs. (2) Generalized weakness Priority: Primary Status: Resolved (3) Abnormal urinalysis Priority: Primary Status: Acute Comments: urine culture mixed- patient denied dysuria, but she did have leukocytosis upon presentation, treated with ceftriaxone while admitted, will complete Omnicef by mouth course (4) Elevated troponin Priority: Primary Status: Acute Comments: Patient denied chest pain throughout this admission, acute coronary syndrome unlikely. (5) Dizziness Priority: Primary Status: Resolved (6) Gait difficulty Priority: Primary Status: Resolved Comments: Patient had an upright and steady gait while admitted, OT and PT surmised she had no needs (7) Intractable headache Priority: Primary Status: Resolved (8) Vertigo Priority: Primary Status: Resolved (9) Atrial fibrillation Priority: Secondary Status: Chronic Comments: Rate controlled. Not on anticoagulation, follow-up outpatient (10) Nausea vomiting and diarrhea Priority: Primary Status: Resolved - Discharge Medications Prescriptions: Cefdinir [Omnicef] 300 mg PO BID #10 capsule Fluticasone Propionate Nasal [Flonase] 50 mcg NS DAILY #1 bottle GuaiFENesin ER [Mucinex] 600 mg PO BID #14 tbbp.12hr Loratadine [Claritin] 10 mg PO DAILY #30 tablet Meclizine [Antivert] 12.5 mg PO QID PRN #20 tablet PRN Reason: Dizziness Home Medications: Aspirin 81 mg PO DAILY 06/01/16 [History] Calcium Carbonate [Calcium] 600 mg PO BID 06/01/16 [History] Cinnamon Bark [Cinnamon] 500 mg PO DAILY 06/01/16 [History] Diltiazem HCl [Cardizem LA] 120 mg PO DAILY 06/01/16 [History] Famotidine [Heartburn Prevention] 20 mg PO BID 06/01/16 [History] Insulin ASPART [Novolog Flexpen] 7 - 15 unit SQ TID PRN 06/01/16 [History] Insulin Glargine,Hum.rec.anlog [Lantus Solostar] 25 unit SQ HS 06/01/16 [History ] Insulin Glargine,Hum.rec.anlog [Lantus Solostar] 35 unit SQ QAM 06/01/16 [ History] LORazepam [Ativan] 0.5 mg PO HS 06/01/16 [History] Meclizine HCl [Verticalm] 25 mg PO Q6H PRN 06/01/16 [History] Metformin HCl [Glucophage] 1,000 mg PO BID 06/01/16 [History] Metoprolol [Lopressor] 25 mg PO BID 06/01/16 [History] Nitroglycerin [Nitrostat] 0.4 mg SL AD PRN 06/01/16 [History] Nystatin POWDER [Nystop] 1 appl TP DAILY 06/01/16 [History] Pravastatin Sodium [Pravachol] 40 mg PO DAILY 06/01/16 [History] Vitamin B Complex Vit C No.4 [Super B Complex] 150 mg PO DAILY 06/01/16 [History ] Docusate [Colace] 100 - 200 mg PO DAILY PRN 10/26/16 [History] Lisinopril [Zestril] 10 mg PO DAILY 10/26/16 [History] Cefdinir [Omnicef] 300 mg PO BID #10 capsule 10/27/16 [Rx] Fluticasone Propionate Nasal [Flonase] 50 mcg NS DAILY #1 bottle 10/27/16 [Rx] GuaiFENesin ER [Mucinex] 600 mg PO BID #14 tbbp.12hr 10/27/16 [Rx] Loratadine [Claritin] 10 mg PO DAILY #30 tablet 10/27/16 [Rx] Meclizine [Antivert] 12.5 mg PO QID PRN #20 tablet 10/27/16 [Rx] Allergies/Adverse Reactions: Allergies latex Allergy (Unknown, Verified 10/26/16 08:52) See Comments Listed on patient's [facility] account with no reaction given- Procedures/tests Complete & Pending: Procedures Performed prior 72 hours Category Date Time Status MR angio head wo con [MR] Routine MRI 10/26/16 06:26 Draft MR angio neck wo/w con [MR] Routine MRI 10/26/16 06:26 Draft Date of admission: 10/26/16 01:12 Primary care physician: Olga Gallego CNP Consults: 10/26/16 03:30 Consult to Occupational Therapy [CONS] Routine Comment: Evaluate, develop and implement POC Consult to Physical Therapy [CONS] Routine Comment: Evaluate, develop and implement POC Discharging clinician: Lizbeth Diaz Anticipated date of discharge: 10/27/16 (no needs per OT and PT) - Patient Status Disposition: Home, Self-Care Condition: Fair Functional capacity at discharge: independent ambulation Overall status at discharge: patient is back to baseline - Discharge Instructions Follow Up With: Olga Gallego CNP [Primary Care Provider] - 11/02/16 1:25 pm Additional Instructions: Follow-up with primary care provider as scheduled - Diet and Activity Activity: increase activity as tolerated Diet: diabetic diet, low fat, low cholesterol, low salt diet Hospital course: Ms. Cyr is a 71 year old female with past medical history of atrial fibrillation, coronary artery disease, diabetes, hyperlipidemia, hypertension. Patient presented to the emergency department chief complaint acute onset of a headache on the morning of presentation associated with multiple episodes of emesis throughout the day. Patient stating her head was aching in her right christianity and radiated to the back and right side of her head. She also endorsed dizziness and lightheadedness and states she felt as if she was dehydrated. Workup in the emergency department notable for an abnormal urinalysis. Chest x- ray negative. Head CT negative. Patient was admitted to the hospitalist service for further evaluation and management. Brain MRI negative for acute processes. Head and neck MRA negative for acute processes. Patient remained alert and oriented 3 throughout this admission. She did have a upper respiratory tract infection symptoms and was started on Claritin and Flonase and her symptoms of dizziness abated. Patient had mild anemia however remained hemodynamically stable. Urine culture was mixed and she was treated with ceftriaxone while admitted and sent home on Omnicef. She was able to tolerate a regular diet while admitted over the course of 2 days. She was evaluated by OT and PT who surmised she had no needs. She was discharged home in stable condition with close outpatient follow-up recommended. ITS Impressions Chest X-Ray 10/25/16 19:27 IMPRESSION: No acute cardiopulmonary disease. D/ /25/2016 20:01:21 Eleazar Schmidt MD / bcarter Interpreting Provider: Eleazar Schmidt MD Head CT 10/25/16 19:38 IMPRESSION: No acute intracranial abnormality. D/ / Gilmar Gonzalez MD / Gilmar Gonzalez MD Interpreting Provider: Gilmar Gonzalez MD Brain MRI 10/25/16 20:53 IMPRESSION: No acute infarct. D/ / Gilmar Gonzalez MD / Gilmar Gonzalez MD Interpreting Provider: Gilmar Gonzalez MD Head MRA 10/26/16 06:26 IMPRESSION: No significant abnormality of the intracranial circulation. D/ / 10/26/2016 15:10:06 Nahomi Alatorre MD / Mercedes Trevino Interpreting Provider: Nahomi Alatorre MD Neck MRA 10/26/16 06:26 IMPRESSION: Motion artifact degrades the images. No significant abnormality of the neck vessels is identified. D/ / 10/26/2016 15:17:31 Nahomi Alatorre MD / tari Interpreting Provider: Nahomi Alatorre MD - Time Spent with Patient Total time spent providing and/or coordinating discharge services: - Constitutional Vitals: Temp Pulse Resp BP Pulse Ox 98.0 F 85 17 162/76 94 L 10/27/16 11:41 10/27/16 11:41 10/27/16 11:41 10/27/16 11:41 10/27/16 11:41 General appearance: Present: A&O X 3, pleasant, no acute distress, answers questions appropriately - Head Head exam: Present: atraumatic, normocephalic - Eye Eye exam: Present: PERRL, conjuntiva pink, sclera anicteric Pupils: Present: PERRL - Neck Neck exam general surgery: Present: supple, trachea midline. Absent: lymphadenopathy - Respiratory Respiratory exam: Present: CTAB. Absent: accessory muscle use, rales, respiratory distress, rhonchi, wheezes - Cardiovascular Cardiovascular exam: Present: RRR, +S1, +S2. Absent: diastolic murmur, gallop, rubs, systolic murmur - GI/Abdominal GI/Abdominal exam: Present: normal bowel sounds, soft, no peritoneal signs. Absent: distended, tenderness - Extremities Exam Extremities exam: Present: warm, radial pulses palpable and symetrical. Absent : calf tenderness, cyanotic, pedal edema - Neurological Exam Neurological exam: Present: alert, CN II-XII intact, normal gait, oriented X3, no focal deficits, strengths equal and symetr throughout. Absent: pronater drift, facial droop, speech deficit - Skin Skin exam: Present: dry, intact, normal color, warm
== END 2016-10-27 13:47 | disposition home or self-care (01) ==
LOC: EMEROO 19:04 → 3BNU 19:04
PROVIDERS: ADMIT Internal Medicine; ATTEND Nurse Practitioner Family

== ENCOUNTER 2017-03-22 15:25 | Observation (INO) ==
[2017-03-22 17:45] LABS: INR 1.1; Prothrombin Time 12.2 Seconds (9.4-12.1)
[2017-03-22 17:46] LABS: Basophils % 0.3 %; Eosinophils # 0.1 K/mcL (0.0-0.6); Eosinophils % 1.2 %; Immature Granulocytes % 0.5 % (0-4); Lymphocytes # 1.2 K/mcL (0.6-4.6); Lymphocytes % 12.9 %; Mean Corpuscular Hemoglobin 22.3 pg (28.0-33.3); Mean Corpuscular Volume 76.6 fL (83.0-100.0); Monocytes # 0.8 K/mcL (0.0-1.3); Monocytes % 8.2 %; Neutrophils # 7.4 K/mcL (1.6-8.9); Nucleated Red Blood Cells 0.2 /100 WBC (0); Platelet Count 270 K/mcL (140-400); Red Blood Count 2.74 M/mcL (3.82-4.97); Red Cell Distribution Width 17.5 % (11.5-14.5); Segmented Neutrophils % 76.9 %
[2017-03-22 17:47] LABS: Activated Partial Thrombo Time 36.2 Seconds (26.0-36.0)
[2017-03-22 17:54] LABS: BUN/Creatinine Ratio 15 (6-26); Blood Urea Nitrogen 10 mg/dL (7-20); Calcium 9.6 mg/dL (8.6-10.8); Carbon Dioxide 26 mEq/L (19-29); Chloride 105 mEq/L (98-109); Glucose 83 mg/dL (70-99); Osmolality,Calculated 290 (280-300); Sodium 141 mEq/L (136-145); eGFR For African Americans > 60 (> 60); eGFR For Non-African Americans > 60 (> 60)
[2017-03-22 18:01] LABS: Hemoglobin 6.1 g/dL (11.5-15.4)
[2017-03-22 18:20] LABS: Anisocytosis 1+ (Not Present); Hypochromasia Present (Not Present); Platelet Estimate Normal (Normal)
[2017-03-22 18:21] LABS: Polychromasia 1+ (Not Present)
--- NOTE | 2017-03-22 20:19 | Emergency Department Note ---
Disposition Clinical Impression: Symptomatic anemia Disposition: Admitted As Inpatient Condition: Good Referrals: Olga Gallego CNP [Primary Care Provider] - Forms: Work/School Release, ED Satisfaction Letter General Adult HPI - General Chief complaint: ED Vaginal Bleeding Stated complaint: needs two units of blood Time Seen by Provider: 03/22/17 19:25 Source: patient Mode of arrival: ambulatory Limitations: no limitations Nursing Notes Reviewed: Yes Vital Signs Reviewed: Yes - History of Present Illness HPI Narrative: Patient here secondary to abnormal labs. Patient was found to have a hemoglobin that was 6.2 on the . Patient states that she has had abnormal menstrual periods which were worked up and initially found to be noncancerous. This recent studies show that she does have cancer that is going to require hysterectomy at [facility]. Patient has gone through approximately 2 pads today. She states she is not bleeding much but that it continues to be a small amount on a daily basis. Short of breath with exertion but no recent change. Patient has not had any chest pain. Initial labs ordered at triage. Patient will be given 2 units of blood and admitted to the hospital service. Pain Scale: 0 - Related Data Home Medications Medication Instructions Recorded Confirmed Aspirin 81 mg PO DAILY 06/01/16 02/09/17 Calcium Carbonate [Calcium] 600 mg PO BID 06/01/16 02/09/17 Cinnamon Bark [Cinnamon] 500 mg PO DAILY 06/01/16 02/09/17 Diltiazem HCl [Cardizem LA] 120 mg PO DAILY 06/01/16 02/09/17 Famotidine [Heartburn Prevention] 20 mg PO BID 06/01/16 02/09/17 Insulin ASPART [Novolog Flexpen] 7 - 15 unit SQ TID PRN 06/01/16 02/09/17 Insulin Glargine,Hum.rec.anlog 25 unit SQ HS 06/01/16 02/09/17 [Lantus Solostar] Insulin Glargine,Hum.rec.anlog 35 unit SQ QAM 06/01/16 02/09/17 [Lantus Solostar] Metformin HCl [Glucophage] 1,000 mg PO BID 06/01/16 02/09/17 Metoprolol [Lopressor] 25 mg PO BID 06/01/16 02/09/17 Nitroglycerin [Nitrostat] 0.4 mg SL AD PRN 06/01/16 02/09/17 Pravastatin Sodium [Pravachol] 40 mg PO DAILY 06/01/16 02/09/17 Vitamin B Complex Vit C No.4 150 mg PO DAILY 06/01/16 02/09/17 [Super B Complex] Lisinopril [Zestril] 10 mg PO DAILY 10/26/16 02/09/17 Amoxicillin [Amoxil] 2,000 mg PO ONCE 02/09/17 02/09/17 Previous Rx's Medication Instructions Recorded Fluticasone Propionate Nasal 50 mcg NS DAILY #1 bottle 10/27/16 [Flonase] Allergies Allergy/AdvReac Type Severity Reaction Status Date / Time Oxycodone [From OxyContin] Allergy Hallucinati Verified 02/09/17 11:27 ng Past Medical History - Past Medical History Medical history: Reports: arthritis, atrial fibrillation, cancer, coronary artery disease, diabetes, GERD, hyperlipidemia, hypertension, osteoporosis, other Surgical history: Reports: non-contributory, other Psychiatric history: Reports: anxiety - Social History Smoking Status: Former smoker Smokeless Tobacco Status: No Alcohol use: Reports: none Drug use: Reports: none Physical Exam General appearance: NAD, conversant Eyes: Pale conjunctiva HENT: Atraumatic; oropharynx clear with moist mucous membranes and no mucosal ulcerations Neck: Normal inspection; Trachea midline; FROM, supple Lungs: CTA, with normal respiratory effort and no intercostal retractions CV: RRR, no MRGs Abdomen: Soft, non-tender; no rebound or gaurding Extremities: No peripheral edema or extremity lymphadenopathy Skin: Normal temperature; no rash, ulcers or lesions Psych: Appropriate mood and affect Neuro: alert and oriented to person, place and time - General Limitations: no limitations General appearance: alert, in no apparent distress Course - Consultations Consultation #1: Discussed with Hospitalist Laith. Pt accepted for admission. Vital Signs Temperature 99.0 F 03/22/17 16:15 Pulse Rate 78 03/22/17 16:15 Respiratory Rate 16 03/22/17 16:15 Blood Pressure 108/63 03/22/17 16:15 O2 Sat by Pulse Oximetry 99 03/22/17 16:15 Temperature 99.0 F 03/22/17 16:15 Pulse Rate 78 03/22/17 16:15 Respiratory Rate 16 07/31/17 16:15 Blood Pressure 108/63 07/31/17 16:15 O2 Sat by Pulse Oximetry 99 03/22/17 16:15 Oxygen Delivery Oxygen Delivery Room Air Medical Decision Making - Lab Data Lab results reviewed: Yes I reviewed the patient's lab results. Result diagrams: 03/22/17 17:24 03/22/17 17:24 Lab Results 03/22/17 03/22/17 03/22/17 Range/Units 17:24 17:24 17:24 WBC 9.6 (4.3-11.1) K/mcL RBC 2.74 L (3.82-4.97) M/mcL Hgb 6.1 L (11.5-15.4) g/dL Hct 21.0 L (35.3-44.9) % MCV 76.6 L (83.0-100.0) fL MCH 22.3 L (28.0-33.3) pg MCHC 29.0 L (31.6-35.5) g/dL RDW 17.5 H (11.5-14.5) % Plt Count 270 (140-400) K/mcL MPV 12.0 (9.4-12.4) fL Immature Gran % 0.5 (0-4) % Seg Neutrophils % 76.9 % Lymphocytes % 12.9 % Monocytes % 8.2 % Eosinophils % 1.2 % Basophils % 0.3 % Neutrophils # 7.4 (1.6-8.9) K/mcL Lymphocytes # 1.2 (0.6-4.6) K/mcL Monocytes # 0.8 (0.0-1.3) K/mcL Eosinophils # 0.1 (0.0-0.6) K/mcL Basophils # 0.0 (0.0-0.2) K/mcL Nucleated RBCs/100 WBC 0.2 H (0) /100 WBC Platelet Estimate Normal (Normal) Polychromasia 1+ A (Not Present) Hypochromasia Present A (Not Present) Anisocytosis 1+ A (Not Present) PT 12.2 H (9.4-12.1) Seconds INR 1.1 APTT 36.2 H (26.0-36.0) Seconds Sodium 141 (136-145) mEq/L Potassium 4.0 (3.5-4.5) mEq/L Chloride 105 (98-109) mEq/L Carbon Dioxide 26 (19-29) mEq/L BUN 10 (7-20) mg/dL Creatinine 0.66 (0.57-1.11) mg/dL Est GFR ( Amer) > 60 (> 60) Est GFR (Non-Af Amer) > 60 (> 60) BUN/Creatinine Ratio 15 (6-26) Glucose 83 (70-99) mg/dL Calculated Osmolality 290 (280-300) Calcium 9.6 (8.6-10.8) mg/dL Troponin I (0-0.03) ng/mL 03/22/17 Range/Units 17:24 WBC (4.3-11.1) K/mcL RBC (3.82-4.97) M/mcL Hgb (11.5-15.4) g/dL Hct (35.3-44.9) % MCV (83.0-100.0) fL MCH (28.0-33.3) pg MCHC (31.6-35.5) g/dL RDW (11.5-14.5) % Plt Count (140-400) K/mcL MPV (9.4-12.4) fL Immature Gran % (0-4) % Seg Neutrophils % % Lymphocytes % % Monocytes % % Eosinophils % % Basophils % % Neutrophils # (1.6-8.9) K/mcL Lymphocytes # (0.6-4.6) K/mcL Monocytes # (0.0-1.3) K/mcL Eosinophils # (0.0-0.6) K/mcL Basophils # (0.0-0.2) K/mcL Nucleated RBCs/100 WBC (0) /100 WBC Platelet Estimate (Normal) Polychromasia (Not Present) Hypochromasia (Not Present) Anisocytosis (Not Present) PT (9.4-12.1) Seconds INR APTT (26.0-36.0) Seconds Sodium (136-145) mEq/L Potassium (3.5-4.5) mEq/L Chloride (98-109) mEq/L Carbon Dioxide (19-29) mEq/L BUN (7-20) mg/dL Creatinine (0.57-1.11) mg/dL Est GFR ( Amer) (> 60) Est GFR (Non-Af Amer) (> 60) BUN/Creatinine Ratio (6-26) Glucose (70-99) mg/dL Calculated Osmolality (280-300) Calcium (8.6-10.8) mg/dL Troponin I 0.00 (0-0.03) ng/mL Attestation Statement - Attestation Attestation: I personally interviewed and examined this patient and my medical decision- making was reviewed with the Resident Physician, Dr. Valera. I agree with the documented findings, disposition and treatment plan as described except to the extent set forth below. Patient is a 71-year-old female who persistent emergent department today with complaints of generalized weakness and fatigue and states she was contacted by her primary care physician with abnormal labs and told to come to the emergency department due to low hemoglobin. Patient has a history of abnormal vaginal bleeding that has been chronic secondary to a cancerous diagnosis by her OB/ DAT[employer]. Patient states that they are planning to do a hysterectomy. She describes her vaginal bleeding at this time is occasional spotting that she experiences throughout the day but denies any heavy vaginal bleeding or belly pain. This is been going on for quite some time and patient's hemoglobin today is 6.1. Seem symptomatic with this finding. Patient denies any syncopal episodes falls or history of trauma. I agree with patient's physical exam findings as documented. Patient's repeat labs show that her hemoglobin has slightly dropped from 6.2 3 days ago to 6.1 today. Patient with stable vital signs. Patient with no ongoing bleeding at this time. Patient denies any prior GI bleeding. Patient will be transfused 2 units packed red cells and admitted to the hospitalist service for transfusion.
[2017-03-22] MEDS ORDERED: Naloxone 0.4 MG/ML INJ IVP PRN (21:34)
[2017-03-22] MEDS ORDERED: Dextrose Gel 15 GM PO PRN ×2 (21:38)
[2017-03-22] MEDS ORDERED: D5% in Water 1,000 ML IVC PRN (21:38)
[2017-03-22] MEDS ORDERED: *HR* Dextrose 50 % in Water (Syg) 50 ML SYRINGE IVP PRN (21:38)
--- NOTE | 2017-03-22 21:55 | Internal Med History&Physical ---
<Curtis No - Last Filed: 03/22/17 22:19> Date of Encounter: 03/22/17 Time of Encounter: 21:40 Assessment and Plan (1) Symptomatic anemia Current visit: Yes Status: Acute 71F hx of uterine cancer, afib, DM presents with cc of vaginal bleeding. hgb 6.1 recent diagnosis of uterine cancer, follwed by [place] CONSTRUCTION ELECTRICIAN and is scheduled for total hysterectomy at [facility] 2nd time patient is requiring transfusion for anemia from uterine bleeding has changed 2 pads today but states at times may need to change 7 times. She denies melena, hematochezia, hemoptysis, hematemesis BP systolic 140/65 unsteady gait: states she is dizzy Plan: 2PBRC ordered CBC in morning fall precauations will not start DVT prophylaxis due to bleeding not on blood thinner for afib consult CONSTRUCTION ELECTRICIAN (2) Postural dizziness with near syncope Current visit: Yes Status: Acute due to anemia 2 PBRC being transfused. PT/OT in morning (3) Diabetes mellitus Current visit: Yes Status: Acute diabetic diet Insulin levamir SQ and preprandial insulin with low dose SSI ACHS Qualifiers: Diabetes mellitus type: type 2 Diabetes mellitus complication status: with unspecified complications Diabetes mellitus intermediate teacher insulin use: with intermediate teacher use Qualified Code(s): E11.8 - Type 2 diabetes mellitus with unspecified complications; Z79.4 - assisted (current) use of insulin (4) PAF (paroxysmal atrial fibrillation) Current visit: Yes Status: Acute rate controlled currently sinus rhythm on metoprolol and cardizem, will continue not on anticoagulation due to uterine bleed. (5) HLD (hyperlipidemia) Current visit: Yes Status: Chronic continue home statin Qualifiers: Hyperlipidemia type: mixed hyperlipidemia Qualified Code(s): E78.2 - Mixed hyperlipidemia (6) HTN (hypertension) Current visit: Yes Status: Chronic controlled. continue home medications. Qualifiers: Hypertension type: essential hypertension Qualified Code(s): I10 - Essential (primary) hypertension Internal Medicine - H&P: HPI Chief complaint: dizziness, low hemoglobin Admitted From: Home Plans for Post Hospital Care: Home History of present illness: Ms. Cyr is a 71 year old female with history of Uterine cancer, diabetes, paroxysmal afib presents with chief complaint of low hemoglobin. Patient's hemoglobin was found to be 6.7 on March 18, 2017. She presents with hgb of 6.1. She has been having vaginal bleeding secondary to recently diagnosed vaginal cancer however she is unclear on what type of cancer this is. The past couple days she has had to change her pads twice a day. However, she states she has days where she has to change pads 7 times a day. She states she has dizziness while walking and shortness of breath with exertion. Denies chest pain, syncope , trauma to head, fall. Reports blurry vision as well. Patient is followed by Dr. Corrales. She is scheduled for total hysterectomy at [facility]. 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 Patient has had symptomatic anemia for a 3-4 months since her. She has been transfused 1 unit packed red blood cells in the past at [facility] for anemia 2nd to uterine bleeding. Denies being on blood thinners. Past Med Surg Social Fam HX - Past Medical History Medical history: arthritis, atrial fibrillation, cancer, coronary artery disease , diabetes, GERD, hyperlipidemia, hypertension, osteoporosis, other Psychiatric history: anxiety - Past Surgical History Surgical History: non-contributory, other - Social History Smoking Status: Former smoker Smokeless Tobacco Status: No Alcohol use: none Drug use: none - Family History Brother Hx Family Endocrine Disorder: Yes (DIABETES MELLITUS.) Mother Living Status: Hx Family Cardiac Disorders: Yes Hx Family Respiratory Disorders: Yes Hx Family Cancer: Yes Hx Family GI Disorders: No Hx Family Endocrine Disorder: Yes Hx Family Neuromuscular Disorders: No Hx Family Neurologic Disorders: No Hx Family HEENT Disorders: Yes Hx Family Autoimmune Disorders: No Internal Medicine - H&P: Meds Aspirin 81 mg PO DAILY 06/01/16 [History] Calcium Carbonate [Calcium] 600 mg PO BID 06/01/16 [History] Cinnamon Bark [Cinnamon] 500 mg PO DAILY 06/01/16 [History] Diltiazem HCl [Cardizem LA] 120 mg PO DAILY 06/01/16 [History] Famotidine [Heartburn Prevention] 20 mg PO BID PRN 06/01/16 [History] Insulin ASPART [Novolog Flexpen] 7 - 15 unit SQ TID PRN 06/01/16 [History] Insulin Glargine,Hum.rec.anlog [Lantus Solostar] 25 unit SQ HS 06/01/16 [History ] Insulin Glargine,Hum.rec.anlog [Lantus Solostar] 35 unit SQ QAM 06/01/16 [ History] Metformin HCl [Glucophage] 1,000 mg PO BID 06/01/16 [History] Metoprolol [Lopressor] 25 mg PO BID 06/01/16 [History] Nitroglycerin [Nitrostat] 0.4 mg SL Q5M PRN 06/01/16 [History] Pravastatin Sodium [Pravachol] 40 mg PO HS 06/01/16 [History] Vitamin B Complex Vit C No.4 [Super B Complex] 150 mg PO DAILY 06/01/16 [History ] Lisinopril [Zestril] 10 mg PO DAILY 10/26/16 [History] Allergies Oxycodone [From OxyContin] Allergy (Verified 02/09/17 11:27) Hallucinating All Systems PM: A 10-system review of systems was performed and is negative for pertinent findings except as documented above in the HPI. Review of systems: Constitutional: Denies fever, chills HEENT: Denies headache, neck pain, sore throat, rhinorrhea. Reports blurry vision, dry mouth Heart: Denies chest pain palpitations Lungs: Shortness of breath on exertion. And cough Abdomen: Denies abdominal pain nausea vomiting diarrhea, melena, hematochezia, hematemesis Back: Denies back pain Kidney: Denies dysuria, hematuria Extremities: Denies swelling, pain Neuro: Denies numbness, and tingling - Constitutional Vitals: Temp Pulse Resp BP Pulse Ox 97.9 F 74 16 146/65 98 03/22/17 21:35 03/22/17 21:35 03/22/17 21:35 03/22/17 21:35 03/22/17 21:35 - Other Additional findings: General: Alert and oriented to place time and situation. Without distress HEENT: Head atraumatic, normocephalic, EOMI, PERRLA, neck nontender to palpation , absent Lymphadenopathy, Moist Mucous Membranes, Heart: Regular rate and rhythm with with systolic murmur 2/4 on LUSB Lungs: Clear to auscultation bilaterally Abdomen: Soft nontender, nondistended positive bowel sounds Extremities: trace pedal edema Neuro: Cranial nerves II through XII intact, sensation equal bilaterally, strength upper and lower extremity 5/5, alert oriented 3 Vascular: Pedal and radialpulses 2 out of 4 Internal Med - H&P Results - Labs CBC & Chem 7: 03/22/17 17:24 03/22/17 17:24 <Fariba Jaimesbecki Venegas - Last Filed: 03/22/17 23:34> Date of Encounter: 03/22/17 Internal Medicine - H&P: HPI History of present illness: Ms. Cyr is a 71 year old female All Systems PM: A 10-system review of systems was performed and is negative for pertinent findings except as documented above in the HPI. - Constitutional Vitals: Temp Pulse Resp BP Pulse Ox 98.0 F 74 14 145/83 98 03/22/17 22:26 03/22/17 22:26 03/22/17 22:26 03/22/17 22:26 03/22/17 22:26 Internal Med - H&P Results - Labs CBC & Chem 7: 03/22/17 17:24 03/22/17 17:24 - Attending Attestation I examined this patient and my medical decision-making was reviewed with the Resident Physician. I agree with the documented findings, disposition and treatment plan as described except to the extent set forth below. 71 yo female with uterine cancer pending interval hysterectomy by PROGRAM SCHEDULE CLERK-ONC at [facility] in 1 month presenting with symptomatic anemia with blood clots through vagina area 2/2 to uterine cancer ROS 14 point review of systems reviewed as best as possible given presentation. Pertinent positive or negative as per HPI or otherwise reviewed as negative General - AAO x 3 Psych - Appropriate affect/speech. No agitation Eyes - JÚNIOR. Eye lids intact. No scleral icterus ENT - Oral mucosa pink, dentition intact. External ear clear/dry/intact. No thyromegaly Lymphatics - No cervical/inguinal lympadenopathy Neuro - No gross peripheral or central neuro deficits with intact CN 2-12 exam Heart - Sinus. RRR. S1 and S2 present. No added HS/murmurs appreciated. No elevated JVD appreciated. No calf swellings/erythema Lung - Adequate air entry b/l, No crackes/wheezes appreciated GI - Soft, non-tender. No hepatosplenomegaly/ascities. BS+ - No CVA/suprapubic tenderness or palpable bladder distension Skin - Intact. No rash/petechiae/ecchymosis. Warm extremities MSK - Joints with normal ROM. No joint swellings A/P Symptom anemia - transfuse 2 prbc - orthstat, ambulate/PT in the morning - if stable, may d/c with interval and close follow up with PCP for prn pRBC until CARLO - consider PROGRAM SCHEDULE CLERK eval to discuss any medical therapy for optimization to decrease uterine blood loss Chronic medical issues DMII AFib
[2017-03-22] MEDS ORDERED: 0.9 % Sodium Chloride 250 ML ONE (21:59)
[2017-03-23 05:00] LABS: Hematocrit 23.3 % (35.3-44.9); Hemoglobin 7.2 g/dL (11.5-15.4); Mean Corpuscular HGB Conc 30.9 g/dL (31.6-35.5); Mean Corpuscular Volume 77.7 fL (83.0-100.0); Mean Platelet Volume 12.3 fL (9.4-12.4); Platelet Count 214 K/mcL (140-400); Red Cell Distribution Width 16.9 % (11.5-14.5)
[2017-03-23] MEDS ORDERED: Insulin LISPRO 300 UNITS/3 ML VIAL SQ SCH ×4 (07:30→21:00)
[2017-03-23 08:06] VITALS: BP 147/64
[2017-03-23] MEDS ORDERED: Diltiazem CD (24hr) 120 MG CAPSULE PO SCH (09:00)
--- NOTE | 2017-03-23 17:58 | Discharge Summary ---
Date of Encounter: 03/23/17 Time of Encounter: 08:30 - Discharge Diagnosis (1) Symptomatic anemia Priority: Primary Status: Acute Comments: Acute blood loss anemia - secondary to vaginal bleeding Recent diagnosis of uterine cancer - follows up at [facility] and is scheduled for total hysterectomy Status post 2 units PRBC transfusion CLOTH SPONGER consult - Dr. Johnston evaluated patient Patient does not want to be transferred, wants to leave AMA (2) Diabetes mellitus Priority: Secondary Status: Chronic Qualifiers: Diabetes mellitus type: type 2 Diabetes mellitus complication status: with unspecified complications Diabetes mellitus exterminator helper termite insulin use: with half-way use Qualified Code(s): E11.8 - Type 2 diabetes mellitus with unspecified complications; Z79.4 - alf (current) use of insulin (3) PAF (paroxysmal atrial fibrillation) Priority: Secondary Status: Chronic (4) HLD (hyperlipidemia) Priority: Secondary Status: Chronic Qualifiers: Hyperlipidemia type: mixed hyperlipidemia Qualified Code(s): E78.2 - Mixed hyperlipidemia (5) HTN (hypertension) Priority: Secondary Status: Chronic Qualifiers: Hypertension type: essential hypertension Qualified Code(s): I10 - Essential (primary) hypertension - Discharge Medications Home Medications: Aspirin 81 mg PO DAILY 06/01/16 [History] Calcium Carbonate [Calcium] 600 mg PO BID 06/01/16 [History] Cinnamon Bark [Cinnamon] 500 mg PO DAILY 06/01/16 [History] Diltiazem HCl [Cardizem LA] 120 mg PO DAILY 06/01/16 [History] Famotidine [Heartburn Prevention] 20 mg PO BID PRN 06/01/16 [History] Insulin ASPART [Novolog Flexpen] 7 - 15 unit SQ TID PRN 06/01/16 [History] Insulin Glargine,Hum.rec.anlog [Lantus Solostar] 25 unit SQ HS 06/01/16 [History ] Insulin Glargine,Hum.rec.anlog [Lantus Solostar] 35 unit SQ QAM 06/01/16 [ History] Metformin HCl [Glucophage] 1,000 mg PO BID 06/01/16 [History] Metoprolol [Lopressor] 25 mg PO BID 06/01/16 [History] Nitroglycerin [Nitrostat] 0.4 mg SL Q5M PRN 06/01/16 [History] Pravastatin Sodium [Pravachol] 40 mg PO HS 06/01/16 [History] Vitamin B Complex Vit C No.4 [Super B Complex] 150 mg PO DAILY 06/01/16 [History ] Lisinopril [Zestril] 10 mg PO DAILY 10/26/16 [History] Allergies/Adverse Reactions: Allergies Oxycodone [From OxyContin] Allergy (Verified 02/09/17 11:27) Hallucinating Date of admission: 03/22/17 20:36 Primary care physician: Olga Gallego CNP Consults: 03/22/17 22:20 Consult to Occupational Therapy [CONS] Routine Comment: Evaluate, develop and implement POC Reason for Consult: patient unsteady on feet. Consult to Physical Therapy [CONS] Routine Comment: Evaluate, develop and implement POC Reason for Consult: patient unsteady on feet. 03/23/17 07:52 Consult to BRAKE ENGINEER [CONS] Routine Consulting Provider: CLOTH SPONGER Adela Reason for Consult: UTERINE BLEEDING Call Completed: Yes 03/23/17 08:26 Consult to Power Marketer [CONS] Routine Reason for SW Consult: home evaluation and needs Anticipated date of discharge: 03/23/17 - Patient Status Disposition: Left Against Medical Advice Condition: Good Overall status at discharge: patient is progressing back to baseline - Discharge Instructions Instructions: Atrial Fibrillation (DC), Chronic Hypertension (DC) - Diet and Activity Activity: increase activity as tolerated Diet: advance to your usual diet Hospital course: Ms. Cyr is a 71 year old female with past medical history of arthritis, mitral fibrillation, uterine cancer, coronary artery disease, diabetes, GERD, hyperlipidemia, hypertension and osteoporosis. She presented to the ED with complaints of dizziness and low H&H. Patient has been having vaginal bleeding secondary to recently diagnosed vaginal or uterine cancer. She does follow up at [facility]. She is scheduled for a total hysterectomy. Patient was admitted for symptomatic anemia. 2 units PRBCs have been transfused. CLOTH SPONGER has been consult. Dr. Johnston has evaluated the patient and explained to the patient in detail about need for transfer and need for hysterectomy soon. He has recommended transfer to [facility]. Patient has refused. She states that she continues to have vaginal bleeding but says she needs to go home as she has important work. I have also discussed with the patient in detail regarding the persistent vaginal bleeding and need for transfusion and need for transfer. Patient is understood about her condition and also about need for transfer. She states she wants to go home now and wants to sign out AMA. Patient has left AGAINST MEDICAL ADVICE despite our best efforts to convince her. Guarded condition. - Time Spent with Patient Total time spent providing and/or coordinating discharge services: Less than 30 minutes - Constitutional Vitals: Temp Pulse Resp BP Pulse Ox 98.8 F 70 16 147/64 96 03/23/17 07:15 03/23/17 07:15 03/23/17 07:15 03/23/17 07:15 03/23/17 07:15 General appearance: Present: A&O X 3, pleasant, no acute distress, obese, answers questions appropriately - Head Head exam: Present: atraumatic - Eye Eye exam: Present: EOMI - ENT ENT exam: Present: mucous membranes dry - Respiratory Respiratory exam: Absent: CTAB, rales, rhonchi, wheezes, tachypnea - Cardiovascular Cardiovascular exam: Present: RRR, +S1, +S2 - GI/Abdominal GI/Abdominal exam: Present: soft, no peritoneal signs. Absent: distended, firm , guarding, rigid, tenderness - Extremities Exam Extremities exam: Present: radial pulses palpable and symetrical. Absent: cyanotic, pedal edema, tenderness - Neurological Exam Neurological exam: Present: alert, oriented X3, no focal deficits. Absent: facial droop, speech deficit
[2017-03-23] MEDS ORDERED: Insulin DETEMIR 100 UNIT/ML X5UNITS SQ SCH (21:00)
== END 2017-03-23 10:20 | disposition left against medical advice (07) ==
LOC: EMEROO 15:25 → 3ANU 15:25
PROVIDERS: ADMIT Internal Medicine Hematology & Oncology; ATTEND Internal Medicine

== ENCOUNTER 2018-04-19 04:52 | Observation (INO) ==
--- NOTE | 2018-04-19 05:12 | Emergency Department Note ---
Disposition Clinical Impression: Hypoglycemia Ankle fracture, left Qualifiers: Encounter type: initial encounter Fracture type: closed Qualified Code(s): S82.892A - Other fracture of left lower leg, initial encounter for closed fracture Fall Qualifiers: Encounter type: initial encounter Qualified Code(s): W19.XXXA - Unspecified fall, initial encounter Disposition: Admitted As Inpatient Condition: Fair Time of Disposition: 06:59 Fall HPI - General Chief Complaint: ED Fall Stated Complaint: LLE injury Time Seen by Provider: 04/19/18 04:59 Nursing Notes Reviewed: Yes Vital Signs Reviewed: Yes - History of Present Illness HPI Narrative: Patient is a 72-year-old female who presents to [facility] ED with a chief complaint of hypoglycemia and left lower extremity injury. Apparently, patient's glucose level was 76 before she went to bed. When she got up in the middle the night, she felt unsteady on her feet and lightheaded. States she is not exactly sure how she fell but her legs gave out on her. Patient denies any head injury or loss of consciousness. Patient's primary pain is currently in her left lower extremity. 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 Denies: headache, neck pain, chest pain, shortness of breath, abdominal pain - Related Data Home Medications Medication Instructions Recorded Confirmed Cinnamon Bark [Cinnamon] 500 mg PO DAILY 06/01/16 04/19/18 Famotidine [Heartburn Prevention] 20 mg PO BID PRN 06/01/16 04/19/18 Insulin ASPART [Novolog Flexpen] 0 unit SQ TID PRN 06/01/16 04/19/18 Metformin HCl [Glucophage] 1,000 mg PO BID 06/01/16 04/19/18 Metoprolol [Lopressor] 25 mg PO BID 06/01/16 04/19/18 Nitroglycerin [Nitrostat] 0.4 mg SL Q5M PRN MDD [id number] CALL 06/01/16 04/19/18 911 Pravastatin Sodium [Pravachol] 40 mg PO HS 06/01/16 04/19/18 Vitamin B Complex Vit C No.4 150 mg PO DAILY 06/01/16 04/19/18 [Super B Complex] Lisinopril [Zestril] 10 mg PO DAILY 10/26/16 04/19/18 Amiodarone [Cordarone] 200 mg PO BID 04/18/18 04/18/18 Calcium Carbonate/Vitamin D3 1 tab PO DAILY 04/19/18 04/19/18 [Calcium 500 + Vit D Caplet] Insulin Glargine,Hum.rec.anlog 15 unit SQ HS 04/19/18 04/19/18 [Basaglar Kwikpen U-100] Insulin Glargine,Hum.rec.anlog 35 unit SQ QAM 04/19/18 04/19/18 [Basaglar Kwikpen U-100] dilTIAZem HCl [Diltiazem 24Hr ER] 120 mg PO DAILY 04/19/18 04/19/18 predniSONE [PredniSONE] 10 mg PO AD 04/19/18 04/19/18 Allergies Allergy/AdvReac Type Severity Reaction Status Date / Time Oxycodone [From OxyContin] AdvReac Severe Hallucinati Verified 04/19/18 06:48 ng All systems ED: reviewed and negative except as stated. Fall PMH - Past Medical History Medical history: Reports: arthritis, atrial fibrillation, cancer, coronary artery disease, diabetes, GERD, hyperlipidemia, hypertension, osteoporosis, other Surgical history: Reports: non-contributory, other Psychiatric history: Reports: anxiety - Social History Smoking Status: Former smoker Alcohol use: Reports: none Drug use: Reports: none Physical Exam - General Limitations: no limitations General appearance: alert, in no apparent distress - Head Head exam: atraumatic, normocephalic, normal inspection - Eye Eye exam: Present: PERRL, EOMI - ENT ENT exam: normal exam, normal oropharynx, mucous membranes moist - Neck Neck exam: Present: normal inspection, full ROM, trachea midline - Chest Chest inspection: Present: normal inspection, symmetric chest wall rise - Respiratory Respiratory exam: Present: normal lung sounds bilaterally - Cardiovascular Cardiovascular exam: Present: regular rate, normal rhythm, normal heart sounds - Abdominal Exam Abdominal exam: Present: soft, Non-Tender. Absent: tenderness, distention, guarding, rebound, rigidity - Expanded Lower Extremity Exam Lower leg exam: Present: tenderness (at the L fibular head) Ankle exam: Present: tenderness (L ankle), swelling - Neurological Exam Neurological exam: Present: alert, oriented X3 - Psychiatric Psychiatric exam: Present: normal affect, normal mood - Skin Skin exam: Present: warm, dry, intact, normal color Course Course Narrative: Patient seen and examined. Patient with hypoglycemia. We will continue to monitor her sugars. Patient also with fall and left ankle pain. We will get tib-fib x-rays as well as ankle x-ray of the left lower extremity. - Reevaluation(s) Reevaluation #1: Displaced distal fibular and medial malleolar fractures with mild tibiotalar subluxation. I discussed these findings with the wave soldering machine operator Dr. Bhagat who states it does appear to be an unstable ankle fracture that will need surgery. He will consult on the patient. We will page hospitalist for admission. Time: 06:13 Reevaluation #2: Discussed with hospitalist Dr. Hanks who has accepted patient for admission. Would like a repeat Accu-Chek at 7 AM. This been ordered. Patient still complaining of a lot of pain. 1 mg of Dilaudid ordered for longer acting pain control. Time: 06:31 Vital Signs Temperature 98.2 F 04/19/18 04:59 Pulse Rate 86 04/19/18 04:59 Respiratory Rate 20 04/19/18 04:59 Blood Pressure 157/95 04/19/18 04:59 O2 Sat by Pulse Oximetry 92 04/19/18 04:59 Temperature 98.2 F 04/19/18 04:59 Pulse Rate 92 04/19/18 06:28 Respiratory Rate 20 04/19/18 06:28 Blood Pressure 162/88 04/19/18 06:28 O2 Sat by Pulse Oximetry 99 04/19/18 06:28 Oxygen Delivery Oxygen Delivery Room Air Fall - Medical Records Medical records reviewed: Yes I reviewed the patient's medical records. - Lab Data Lab results reviewed: Yes I reviewed the patient's lab results. Result diagrams: 04/19/18 05:05 04/19/18 05:05 Lab Results 04/19/18 04/19/18 Range/Units 05:05 05:05 WBC 4.5 (4.3-11.1) K/mcL RBC 2.99 L (3.82-4.97) M/mcL Hgb 10.4 L (11.5-15.4) g/dL Hct 31.4 L (35.3-44.9) % MCV 105.0 H (83.0-100.0) fL MCH 34.8 H (28.0-33.3) pg MCHC 33.1 (31.6-35.5) g/dL RDW 13.1 (11.5-14.5) % Plt Count 197 (140-400) K/mcL MPV 10.2 (9.4-12.4) fL Immature Gran % 0.7 (0-4) % Seg Neutrophils % 86.3 % Lymphocytes % 5.3 % Monocytes % 7.3 % Eosinophils % 0.2 % Basophils % 0.2 % Neutrophils # 3.9 (1.6-8.9) K/mcL Lymphocytes # 0.2 L (0.6-4.6) K/mcL Monocytes # 0.3 (0.0-1.3) K/mcL Eosinophils # 0.0 (0.0-0.6) K/mcL Basophils # 0.0 (0.0-0.2) K/mcL Sodium 143 (136-145) mEq/L Potassium 3.2 L (3.5-5.1) mEq/L Chloride 106 (98-107) mEq/L Carbon Dioxide 29 (23-29) mEq/L BUN 10 (8-23) mg/dL Creatinine 0.50 L (0.60-1.20) mg/dL Est GFR ( Amer) > 60 (> 60) Est GFR (Non-Af Amer) > 60 (> 60) BUN/Creatinine Ratio 20 (6-26) Glucose 58 L (70-105) mg/dL Calculated Osmolality 293 (280-300) Calcium 9.6 (8.6-10.3) mg/dL Troponin I 0.03 (< 0.04) ng/mL - Radiology Data Radiology results reviewed: Yes I reviewed the patient's radiology results. Ankle X-Ray 04/19/18 04:59 IMPRESSION: Displaced distal fibular and medial malleolar fractures with mild tibiotalar subluxation. D/ / Brendon Peña / Brendon Peña Interpreting Provider: Brendon Peña Tibia/Fibula X-Ray 04/19/18 04:59 IMPRESSION: Displaced distal fibular and medial malleolar fractures with mild tibiotalar subluxation. D/ / Brendon Peña / Brendon Peña Interpreting Provider: Brendon Peña Chest X-Ray 04/19/18 05:00 IMPRESSION: No evidence of heart failure or any other acute cardiopulmonary abnormality. D/ / Brendon Peña / Brendon Peña Interpreting Provider: Brendon Peña - EKG Data EKG attestation: Yes I reviewed and interpreted this EKG. EKG results narrative: EKG done at 522 shows normal sinus rhythm with a rate of [address] elevation or depression noted. Left axis deviation. Inverted T waves noted in leads 1 and aVL. Left anterior fascicular block noted. Attestation Statement - Attestation Attestation: Dr Jordan note: Pt seen in conjunction w/resident Dr Nagel; Please see her charting for complete documentation; I agree w/ pt's treatment and disposition and spent face to face time w/ the pt; mechanical fall with left ankle bimalleolar fracture. No compartment syndrome or neurovascular deficit by history or examination. He will be admitted as she is unable to ambulate or care for herself. Medically stable and improved glucose
[2018-04-19 05:14] LABS: Basophils % 0.2 %; Eosinophils % 0.2 %; Hematocrit 31.4 % (35.3-44.9); Hemoglobin 10.4 g/dL (11.5-15.4); Immature Granulocytes % 0.7 % (0-4); Lymphocytes # 0.2 K/mcL (0.6-4.6); Lymphocytes % 5.3 %; Mean Corpuscular HGB Conc 33.1 g/dL (31.6-35.5); Mean Corpuscular Hemoglobin 34.8 pg (28.0-33.3); Mean Platelet Volume 10.2 fL (9.4-12.4); Monocytes # 0.3 K/mcL (0.0-1.3); Monocytes % 7.3 %; Neutrophils # 3.9 K/mcL (1.6-8.9); Platelet Count 197 K/mcL (140-400); Red Blood Count 2.99 M/mcL (3.82-4.97); Red Cell Distribution Width 13.1 % (11.5-14.5); Segmented Neutrophils % 86.3 %
[2018-04-19] MEDS ORDERED: Ondansetron 4 MG/2 ML VIAL IVP ONE (05:15)
[2018-04-19] MEDS ORDERED: *HR* FentaNYL (PF) 100 MCG/2 ML VIAL IVP ONE (05:15)
[2018-04-19 05:35] LABS: BUN/Creatinine Ratio 20 (6-26); Blood Urea Nitrogen 10 mg/dL (8-23); Calcium 9.6 mg/dL (8.6-10.3); Carbon Dioxide 29 mEq/L (23-29); Chloride 106 mEq/L (98-107); Glucose 58 mg/dL (70-105); Osmolality,Calculated 293 (280-300); Potassium 3.2 mEq/L (3.5-5.1); Sodium 143 mEq/L (136-145); eGFR For Non-African Americans > 60 (> 60)
[2018-04-19 05:36] LABS: Troponin I 0.03 ng/mL (< 0.04)
[2018-04-19] MEDS ORDERED: Potassium Chloride Elixir 20 MEQ/15 ML UDC PO ONE (05:39)
[2018-04-19] MEDS ORDERED: *HR* HYDROmorphone (PF) 1 MG/ML SYRINGE IVP ONE (06:10)
[2018-04-19] MEDS ORDERED: *HR* Morphine 2 MG/ML SYRINGE IVP ONE ×2 (08:23→10:49)
[2018-04-19] MEDS ORDERED: Acetaminophen 325 MG TABLET PO PRN (08:26)
[2018-04-19] MEDS ORDERED: *HR* FentaNYL (PF) 100 MCG/2 ML VIAL IVP PRN ×3 (08:27→11:19)
[2018-04-19] MEDS ORDERED: Ketorolac 30 MG/ML VIAL IVP PRN (08:29)
[2018-04-19] MEDS ORDERED: OXYCODONE Oral CONC 10 MG/0.5 ML ORAL.SYG SL ONE (08:32)
[2018-04-19] MEDS: Ketorolac 30 MG/ML VIAL IVP PRN ×2 (08:51→23:53)
[2018-04-19] MEDS: D5% in 0.9% NACL 1,000 ML IVC SCH ×2 (08:54→23:52)
[2018-04-19] MEDS: Pantoprazole 40 MG VIAL IVP SCH (09:14)
[2018-04-19] MEDS ORDERED: Naloxone 0.4 MG/ML INJ IVP PRN (09:16)
--- NOTE | 2018-04-19 09:22 | Internal Med History&Physical ---
Date of Encounter: 04/19/18 Time of Encounter: 09:00 Internal Medicine - H&P: HPI Chief complaint: Left leg pain Plans for Post Hospital Care: Home History of present illness: Patient is a 72-year-old female with past medical history significant for atrial fibrillation, hypertension, diabetes and hyperlipidemia for recent history of uterine cancer who presents the ER on 04/19/18 due to left lower leg pain status post mechanical fall. She reports that while walking to her kitchen this morning she slipped and immediately experienced left lower leg pain which is constant and worse with movement and without any relief in symptoms. Patient was brought into the ER for further evaluation. In the ER, left ankle x-ray showed displaced distal fibular and medial malleolar fractures with mild tibiotalar subluxation. Patient was admitted to medical surgical floor for further management. Past Med Surg Social Fam HX - Past Medical History Medical history: arthritis, atrial fibrillation, cancer, coronary artery disease , diabetes, GERD, hyperlipidemia, hypertension, osteoporosis, other Additional medical history: Denies osteoporosis Psychiatric history: anxiety - Past Surgical History Surgical History: non-contributory, other Additional surgical history: D&C - Social History Smoking Status: Former smoker Smokeless Tobacco Status: No Alcohol use: none Drug use: none - Family History Brother Hx Family Endocrine Disorder: Yes (DIABETES MELLITUS.) Mother Living Status: Hx Family Cardiac Disorders: Yes Hx Family Respiratory Disorders: Yes Hx Family Cancer: Yes Hx Family GI Disorders: No Hx Family Endocrine Disorder: Yes Hx Family Neuromuscular Disorders: No Hx Family Neurologic Disorders: No Hx Family HEENT Disorders: Yes Hx Family Autoimmune Disorders: No Internal Medicine - H&P: Meds Cinnamon Bark [Cinnamon] 500 mg PO DAILY 06/01/16 [History] Famotidine [Heartburn Prevention] 20 mg PO BID PRN 06/01/16 [History] Insulin ASPART [Novolog Flexpen] 0 unit SQ TID PRN 06/01/16 [History] Metformin HCl [Glucophage] 1,000 mg PO BID 06/01/16 [History] Metoprolol [Lopressor] 25 mg PO BID 06/01/16 [History] Nitroglycerin [Nitrostat] 0.4 mg SL Q5M PRN MDD X1DOSE CALL 911 06/01/16 [ History] Pravastatin Sodium [Pravachol] 40 mg PO HS 06/01/16 [History] Vitamin B Complex Vit C No.4 [Super B Complex] 150 mg PO DAILY 06/01/16 [History ] Lisinopril [Zestril] 10 mg PO DAILY 10/26/16 [History] Amiodarone [Cordarone] 200 mg PO BID 04/18/18 [History] Calcium Carbonate/Vitamin D3 [Calcium 500 + Vit D Caplet] 1 tab PO DAILY [History] Insulin Glargine,Hum.rec.anlog [Basaglar Kwikpen U-100] 15 unit SQ HS 04/19/18 [ History] Insulin Glargine,Hum.rec.anlog [Basaglar Kwikpen U-100] 35 unit SQ QAM 04/19/18 [History] dilTIAZem HCl [Diltiazem 24Hr ER] 120 mg PO DAILY 04/19/18 [History] predniSONE [PredniSONE] 10 mg PO AD 04/19/18 [History] 3 Allergy/AdvReac Type Severity Reaction Status Date / Time Oxycodone [From OxyContin] AdvReac Severe Hallucinati Verified 04/19/18 06:48 ng All Systems PM: A 10-system review of systems was performed and is negative for pertinent findings except as documented above in the HPI. - Constitutional Vitals: Temp Pulse Resp BP Pulse Ox 98.2 F 92 20 162/88 99 04/19/18 04:59 04/19/18 06:28 04/19/18 06:28 04/19/18 06:28 04/19/18 06:28 General appearance: Present: A&O X 3, no acute distress Exam: See below - Eye Eye exam: Present: normal appearance - ENT ENT exam: Present: mucous membranes moist - Respiratory Respiratory exam: Present: CTAB. Absent: accessory muscle use, rales, rhonchi, wheezes - Cardiovascular Cardiovascular exam: Present: RRR, +S1, +S2. Absent: diastolic murmur, gallop, rubs, systolic murmur - GI/Abdominal GI/Abdominal exam: Present: normal bowel sounds, soft, no peritoneal signs. Absent: distended, tenderness - Neurological Exam Neurological exam: Present: alert. Absent: altered - Psychiatric Psychiatric exam: Present: normal mood - Skin Skin exam: Present: normal color Internal Med - H&P Results - Labs CBC & Chem 7: 04/19/18 05:05 04/19/18 05:05 - Assessment and plan (1) Ankle fracture, left Current Visit: Yes Status: Acute Assessment and plan: In the ER, left ankle x-ray showed displaced distal fibular and medial malleolar fractures with mild tibiotalar subluxation. Orthopedics consulted with recommendations to take patient to the OR on 04/20/18 Cardiology was consulted and states that patient is an acceptable intermediate risk for surgery; awaiting cardiac surgical history from [facility] Qualifiers: Encounter type: initial encounter Fracture type: closed Qualified Code(s) : S82.892A - Other fracture of left lower leg, initial encounter for closed fracture (2) Fall Current Visit: Yes Status: Acute Assessment and plan: Patient with mechanical fall Will consult physical therapy and appreciate recommendations for home safety Qualifiers: Encounter type: initial encounter Qualified Code(s): W19.XXXA - Unspecified fall, initial encounter (3) Hypoglycemia Current Visit: Yes Status: Acute Assessment and plan: Patient with serum glucose of 58 on admission Will continue to monitor (4) Atrial fibrillation Current Visit: No Status: Chronic Assessment and plan: Controlled; continue present Qualifiers: Atrial fibrillation type: paroxysmal Qualified Code(s): I48.0 - Paroxysmal atrial fibrillation (5) Diabetes mellitus Current Visit: No Status: Chronic Assessment and plan: Patient with a serum glucose of 58 as above Will hold metformin and continue home dose of insulin Qualifiers: Diabetes mellitus type: type 2 Diabetes mellitus 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: with termite exterminator use Diabetes mellitus complication status: with unspecified complications Qualified Code(s): E11.8 - Type 2 diabetes mellitus with unspecified complications; Z79.4 - skilled nursing (current) use of insulin (6) HLD (hyperlipidemia) Current Visit: No Status: Chronic Assessment and plan: Continue statin Qualifiers: Hyperlipidemia type: mixed hyperlipidemia Qualified Code(s): E78.2 - Mixed hyperlipidemia (7) DVT prophylaxis Current Visit: Yes Status: Acute Assessment and plan: Subcutaneous heparin - Time Spent With Patient Total time spent is greater than 50% in coordination of care (as documented) at patient's floor/unit and/or counseling patient:
[2018-04-19 10:34] LABS: INR 1.1; Prothrombin Time 12.8 Seconds (9.4-12.1)
[2018-04-19] MEDS: *HR* HYDROcodone/Acet 5/325 mg TABLET PO PRN ×2 (11:07→20:40)
--- NOTE | 2018-04-19 14:23 | Cardiology Consult Note ---
Date of Encounter: 04/19/18 Time of Encounter: 14:20 Assessment and Plan Discussion w patient/family: Pt not currently complaining of chest pain or shortness of breath, not on blood thinners. Awaiting records for previous cardiac surgical history from [facility]. She has recovered from her hysterectomy and is no longer on radiation or chemotherapy for uterine cancer. She is an acceptable intermediate risk for surgery. The assessment and plan as outlined above was discussed with the patient and/or family members who expressed understanding and agreement. All questions were answered. Thank you for involving us in the care of your patient. Please call with any questions. History of Present Illness Consult date: 04/19/18 Requesting physician: Garrett Rhoades Consult reason: Cardiac clearance for surgery Chief complaint: Left leg pain History of present illness: Ms. Cyr is a 72 year old female who presents from home after a fall resulting in a left ankle fracture. She had a mechanical fall in her kitchen and blames it on low blood sugar. She has an extensive past medical history including HTN, HLD, DM type 2, afib, and uterine cancer. 9 months ago she underwent a cardiac surgery but is unsure what it was for. She has also undergone a hysterectomy for her uterine cancer. She recovered from both of these procedures without any complications, and recently finished treatment for her cancer. She denies any history of a cardiac cath or echo but is a poor historian. She denies any chest pain, shortness of breath, leg swelling, and palpitations recently. She states she used to get short of breath before she was diagnosed with afib, but now that it is treated she has not been short of breath. She denies alcohol and drug use, and admits to smoking for a short period of time when she was 19. Past Med Surg Social Fam HX - Past Medical History Medical history: arthritis, atrial fibrillation, cancer, coronary artery disease , diabetes, GERD, hyperlipidemia, hypertension, osteoporosis, other Additional medical history: Denies osteoporosis Psychiatric history: anxiety - Past Surgical History Surgical History: non-contributory, other Additional surgical history: D&C - Social History Smoking Status: Former smoker Smokeless Tobacco Status: No Alcohol use: none Drug use: none - Family History Brother Hx Family Endocrine Disorder: Yes (DIABETES MELLITUS.) Mother Living Status: Hx Family Cardiac Disorders: Yes Hx Family Respiratory Disorders: Yes Hx Family Cancer: Yes Hx Family GI Disorders: No Hx Family Endocrine Disorder: Yes Hx Family Neuromuscular Disorders: No Hx Family Neurologic Disorders: No Hx Family HEENT Disorders: Yes Hx Family Autoimmune Disorders: No Medications and Allergies Cinnamon Bark [Cinnamon] 500 mg PO DAILY 06/01/16 [History] Famotidine [Heartburn Prevention] 20 mg PO BID PRN 06/01/16 [History] Insulin ASPART [Novolog Flexpen] 0 unit SQ TID PRN 06/01/16 [History] Metformin HCl [Glucophage] 1,000 mg PO BID 06/01/16 [History] Metoprolol [Lopressor] 25 mg PO BID 06/01/16 [History] Nitroglycerin [Nitrostat] 0.4 mg SL Q5M PRN MDD X1DOSE CALL 911 06/01/16 [ History] Pravastatin Sodium [Pravachol] 40 mg PO HS 06/01/16 [History] Vitamin B Complex Vit C No.4 [Super B Complex] 150 mg PO DAILY 06/01/16 [History ] Lisinopril [Zestril] 10 mg PO DAILY 10/26/16 [History] Amiodarone [Cordarone] 200 mg PO BID 04/18/18 [History] Calcium Carbonate/Vitamin D3 [Calcium 500 + Vit D Caplet] 1 tab PO DAILY [History] Insulin Glargine,Hum.rec.anlog [Basaglar Kwikpen U-100] 15 unit SQ HS 04/19/18 [ History] Insulin Glargine,Hum.rec.anlog [Basaglar Kwikpen U-100] 35 unit SQ QAM 04/19/18 [History] dilTIAZem HCl [Diltiazem 24Hr ER] 120 mg PO DAILY 04/19/18 [History] predniSONE [PredniSONE] 10 mg PO AD 04/19/18 [History] 3 Allergy/AdvReac Type Severity Reaction Status Date / Time Oxycodone [From OxyContin] AdvReac Severe Hallucinati Verified 04/19/18 06:48 ng All Systems Review: The remainder of the systems were reviewed and are negative - Constitutional Constitutional: no chills, no fatigue, no fever(s), no headache(s) - Cardiovascular Cardiovascular: lightheadedness, no chest pain at rest, no chest pain with exertion, no dyspnea at rest, no dyspnea on exertion, no leg edema, no palpitations, no syncope - Respiratory Respiratory: no cough, no dyspnea - Gastrointestinal Gastrointestinal: no abdominal pain, no constipation, no diarrhea, no nausea - Genitourinary Genitourinary: no dysuria, no hematuria - Musculoskeletal Musculoskeletal: no abnormal gait, no muscle cramps, no muscle weakness - Integumentary Integumentary: no rash - Neurological Neurological: dizziness, no focal weakness, no loss of vision, no numbness, no syncope Physical Examination Vital Signs, Last 4 Hours Temp Pulse Resp BP Pulse Ox 04/19/18 11:47 98.0 F 87 20 142/68 96 General: Conversant, No Apparent Distress HEENT: Atraumatic, Normocephaly, Mucus Membranes Moist Neck: No JVD, Normal carotid pulses Cardiac: Normal S1 and S2, No Murmur Lungs: Normal Breath Sounds, No Wheeze, Rales, Rhonchi Neuro: Alert and responsive, No focal deficits noted Abdomen: Soft, Non-Tender Skin: No rashes noted on visualized skin Musculoskeletal: No Chest Wall Tenderness Extremities: No Cyanosis, No Edema, Normal Pulses (Could not assess left lower limb pulses due to splint placement) Results 04/19/18 05:05 04/19/18 05:05 Lab Results 04/19/18 10:05 INR 1.1 Consult Discharge Plan - Plan Referrals: Olga Gallego CNP [Primary Care Provider] -
[2018-04-19] MEDS ORDERED: Nitroglycerin 0.4 MG TAB.SUBL SL PRN (15:49)
[2018-04-19] MEDS ORDERED: Famotidine 20 MG TABLET PO PRN (15:49)
--- NOTE | 2018-04-19 17:47 | Podiatry Consult Note ---
Date of Encounter: 04/19/18 Time of Encounter: 05:45 Assessment and Plan (1) Ankle fracture, left Current visit: Yes Status: Acute I had a thorough review with the patient regarding her injury, my findings, and recommendations for treatment. We discussed and her xrays. We discussed she will have arthritis of the left ankle joint due to her injury and may have pain in the future. discussed ORIF left ankle fracture using plates, screws or other fixation. Nature of procedure, risks vs benefits, potential complications and consequences of the procedure discussed at length (including but not limited to infection, bleeding, swelling, numbness, tingling, nerve damage, loss of limb, loss of life, wound healing problems, delayed or nonhealing of bone fracture, ankle instability, lack of procedure to produce desired outcome, arthritis, loss of functionality, ongoing or persistent pain, pneumonia, kidney disease, liver problems, pulmonary embolism, blood clot, heart attack, reaction to implants, need for hardware removal need for further surgery etc.) as well as a typical course of recovery of non-wb for 8-12 weeks followed by a walking boot. No guaratees were made as to the outcome. All questions were answered, informed consent was signed. She will be on DVT ppx following the surgery. Ice and elevate. Remain non-wb to the left LE in the splint. NPO after midnight. OR tomorrow. Qualifiers: Encounter type: initial encounter Fracture type: closed Qualified Code(s) : S82.892A - Other fracture of left lower leg, initial encounter for closed fracture History of Present Illness HPI: Ms. Cyr is a 72 year old female with a history of a-fib, DM, and uterine CA who fell at home in the kitchen this morning wisting her left ankle. She was unable to ambulate and was experiencing a lot of pain so she was brought to the ER. Patient sustained a displaced left ankle fracture. Podiatry was consulted for evaluation of the left ankle. Past Med Surg Social Fam HX - Past Medical History Medical history: arthritis, atrial fibrillation, cancer, coronary artery disease , diabetes, GERD, hyperlipidemia, hypertension, osteoporosis, other Additional medical history: Denies osteoporosis Psychiatric history: anxiety - Past Surgical History Surgical History: non-contributory, other Additional surgical history: D&C - Social History Smoking Status: Former smoker Smokeless Tobacco Status: No Alcohol use: none Drug use: none - Family History Brother Hx Family Endocrine Disorder: Yes (DIABETES MELLITUS.) Mother Living Status: Hx Family Cardiac Disorders: Yes Hx Family Respiratory Disorders: Yes Hx Family Cancer: Yes Hx Family GI Disorders: No Hx Family Endocrine Disorder: Yes Hx Family Neuromuscular Disorders: No Hx Family Neurologic Disorders: No Hx Family HEENT Disorders: Yes Hx Family Autoimmune Disorders: No Medications and Allergies Cinnamon Bark [Cinnamon] 500 mg PO DAILY 06/01/16 [History] Famotidine [Heartburn Prevention] 20 mg PO BID PRN 06/01/16 [History] Insulin ASPART [Novolog Flexpen] 0 unit SQ TID PRN 06/01/16 [History] Metformin HCl [Glucophage] 1,000 mg PO BID 06/01/16 [History] Metoprolol [Lopressor] 25 mg PO BID 06/01/16 [History] Nitroglycerin [Nitrostat] 0.4 mg SL Q5M PRN MDD X1DOSE CALL 911 06/01/16 [ History] Pravastatin Sodium [Pravachol] 40 mg PO HS 06/01/16 [History] Vitamin B Complex Vit C No.4 [Super B Complex] 150 mg PO DAILY 06/01/16 [History ] Lisinopril [Zestril] 10 mg PO DAILY 10/26/16 [History] Amiodarone [Cordarone] 200 mg PO BID 04/18/18 [History] Calcium Carbonate/Vitamin D3 [Calcium 500 + Vit D Caplet] 1 tab PO DAILY [History] Insulin Glargine,Hum.rec.anlog [Basaglar Kwikpen U-100] 15 unit SQ HS 04/19/18 [ History] Insulin Glargine,Hum.rec.anlog [Basaglar Kwikpen U-100] 35 unit SQ QAM 04/19/18 [History] dilTIAZem HCl [Diltiazem 24Hr ER] 120 mg PO DAILY 04/19/18 [History] predniSONE [PredniSONE] 10 mg PO AD 04/19/18 [History] 3 Allergy/AdvReac Type Severity Reaction Status Date / Time Oxycodone [From OxyContin] AdvReac Severe Hallucinati Verified 04/19/18 06:48 ng All Systems Reviewed: The remainder of the systems were reviewed and are negative Physical Exam - Constitutional Vitals: Temp Pulse Resp BP Pulse Ox 98.1 F 76 20 129/79 96 04/19/18 16:36 04/19/18 16:36 04/19/18 16:36 04/19/18 16:36 04/19/18 16:36 Exam: well developed and nourished female in no acute distress Vasc: CFT < 3 sec x 5 digits left foot. left foot is warm to touch. mild edema. Derm: no fracture blisters, no open lesions. no tenting of skin. skin lines visible. Musc:did not assess ROM secondary to injury. pain with palpation medial and lateral ankle. Neuro: sensation intact to touch. xray-displaced medial and lateral malleolar ankle fracture with lateral shift of the talus in the ankle mortise. Results - Labs Result Diagrams: 04/19/18 05:05 04/19/18 05:05 Labs: Abnormal lab results RBC 2.99 M/mcL (3.82-4.97) L 04/19/18 05:05 Hgb 10.4 g/dL (11.5-15.4) L 04/19/18 05:05 Hct 31.4 % (35.3-44.9) L 04/19/18 05:05 MCV 105.0 fL (83.0-100.0) H 04/19/18 05:05 MCH 34.8 pg (28.0-33.3) H 04/19/18 05:05 Lymphocytes # 0.2 K/mcL (0.6-4.6) L 04/19/18 05:05 PT 12.8 Seconds (9.4-12.1) H 04/19/18 10:05 Potassium 3.2 mEq/L (3.5-5.1) L 04/19/18 05:05 Creatinine 0.50 mg/dL (0.60-1.20) L 04/19/18 05:05 Glucose 58 mg/dL (70-105) L 04/19/18 05:05 All other labs normal. Consult Discharge Plan - Plan Referrals: Olga Gallego, DIRECTOR OF STUDENT AFFAIRS [Primary Care Provider] -
--- NOTE | 2018-04-19 20:43 | Anesthesia Evaluation PreOp ---
Date of Encounter: 04/19/18 Time of Encounter: 20:15 - Past History Planned Operation: Left Ankle ORIF Cardiac History: HTN, Hyperlipidemia, Arrhythmia (Hx AFib s/p Ablation), Other ( Patient seen by Cardiology and risk stratified for surgery) Pulmonary History: Denies Any Significant HX CHEMICAL DEPENDENCY NURSE History: Denies Any Significant HX Other Medical History: Diabetes Type II, GERD Anesthesia History: No Prior Anesthetic Complications, Past Anesthesia ( Hysterectomy for uterine cancer, no current chemo) : No Alcohol Use: none Drug use: none Medications and Allergies Cinnamon Bark [Cinnamon] 500 mg PO DAILY 06/01/16 [History] Famotidine [Heartburn Prevention] 20 mg PO BID PRN 06/01/16 [History] Insulin ASPART [Novolog Flexpen] 0 unit SQ TID PRN 06/01/16 [History] Metformin HCl [Glucophage] 1,000 mg PO BID 06/01/16 [History] Metoprolol [Lopressor] 25 mg PO BID 06/01/16 [History] Nitroglycerin [Nitrostat] 0.4 mg SL Q5M PRN MDD X1DOSE CALL 911 06/01/16 [ History] Pravastatin Sodium [Pravachol] 40 mg PO HS 06/01/16 [History] Vitamin B Complex Vit C No.4 [Super B Complex] 150 mg PO DAILY 06/01/16 [History ] Lisinopril [Zestril] 10 mg PO DAILY 10/26/16 [History] Amiodarone [Cordarone] 200 mg PO BID 04/18/18 [History] Calcium Carbonate/Vitamin D3 [Calcium 500 + Vit D Caplet] 1 tab PO DAILY [History] Insulin Glargine,Hum.rec.anlog [Basaglar Kwikpen U-100] 15 unit SQ HS 04/19/18 [ History] Insulin Glargine,Hum.rec.anlog [Basaglar Kwikpen U-100] 35 unit SQ QAM 04/19/18 [History] dilTIAZem HCl [Diltiazem 24Hr ER] 120 mg PO DAILY 04/19/18 [History] predniSONE [PredniSONE] 10 mg PO AD 04/19/18 [History] 3 Allergy/AdvReac Type Severity Reaction Status Date / Time Oxycodone [From OxyContin] AdvReac Severe Hallucinati Verified 04/19/18 06:48 ng - Meds/Allergy Pre-op Review Medications Reviewed: Yes Allergies Reviewed: Yes Beta Blockers on Current Med List: Yes (Metoprolol at 04-19) Anesthesia Results - Labs 04/19/18 05:05 04/19/18 05:05 Laboratory Tests 04/19/18 04/19/18 04/19/18 05:05 05:05 10:05 Hgb 10.4 L Hct 31.4 L Plt Count 197 PT 12.8 H INR 1.1 Sodium 143 Potassium 3.2 L BUN 10 Creatinine 0.50 L - Imaging EKG: pending Anesthesia Exam Vital Signs/O2 Sat/Glucose, Most Current Temp Pulse Resp BP Pulse Ox 04/19/18 19:58 98.9 F 95 18 146/75 97 Height: 5'6 Weight: 225 lbs NPO (# of Hours): MN Pain Scale: 0 - HEENT Pupil (Motor): Pupils equal, EOMI Mallampati: III Teeth: Edentulous Oral Opening: Less than or equal to 3 - CHEMICAL DEPENDENCY NURSE LOC: Oriented CHEMICAL DEPENDENCY NURSE Motor: Normal RUE, Normal LUE, Normal RLE, Normal LLE, Normal Face CHEMICAL DEPENDENCY NURSE Sensory: Normal: RUE, LUE, RLE, LLE, Face - Cardiac Rhythm: Regular Murmur: None JVD: No Carotid Bruit: No - Pulmonary Breath Sounds: bilateral Clear Respiratory Effort: Symmetrical Anesthesia Assess/Plan ASA Score: 3 (HTN DM Gerd Arrhythmia) Modified [place] Scale for Level of Consciousness: Cooperative, oriented, and tranquil Anesthetic Plan: General, Regional Monitoring Plan: Standard Monitors Recovery Plan: PACU (Discussed RA (pop block) and/or GA, agrees to proceed)
[2018-04-19] MEDS: Insulin DETEMIR 100 UNIT/ML X5UNITS SQ SCH (21:51)
[2018-04-20 01:36] LABS: Basophils % 0.3 %; Eosinophils % 0.5 %; Immature Granulocytes % 0.3 % (0-4); Lymphocytes # 0.4 K/mcL (0.6-4.6); Lymphocytes % 9.9 %; Mean Corpuscular HGB Conc 31.7 g/dL (31.6-35.5); Mean Corpuscular Hemoglobin 33.2 pg (28.0-33.3); Mean Corpuscular Volume 104.8 fL (83.0-100.0); Mean Platelet Volume 10.3 fL (9.4-12.4); Monocytes # 0.5 K/mcL (0.0-1.3); Monocytes % 13.1 %; Neutrophils # 2.8 K/mcL (1.6-8.9); Platelet Count 165 K/mcL (140-400); Red Blood Count 2.29 M/mcL (3.82-4.97); Red Cell Distribution Width 13.6 % (11.5-14.5); Segmented Neutrophils % 75.9 %
[2018-04-20 01:42] LABS: Hemoglobin 7.6 g/dL (11.5-15.4)
[2018-04-20 01:51] LABS: BUN/Creatinine Ratio 20 (6-26); Blood Urea Nitrogen 13 mg/dL (8-23); Calcium 8.6 mg/dL (8.6-10.3); Carbon Dioxide 28 mEq/L (23-29); Chloride 108 mEq/L (98-107); Glucose 89 mg/dL (70-105); Osmolality,Calculated 292 (280-300); Potassium 3.6 mEq/L (3.5-5.1); Sodium 141 mEq/L (136-145); eGFR For Non-African Americans > 60 (> 60)
--- NOTE | 2018-04-20 01:58 | Event Note ---
Date of Encounter: 04/20/18 Time of Encounter: 01:50 Alerted by patient's nurse RADHA Najera that patient is scheduled for surgery on @13:35. Nurse reported that lab had called her to inform her that the patient's current hemoglobin is 7.6, down from 10.4 yesterday. Patient has no obvious signs of bleeding. Patient admitted with fracture of left fibula. Fecal hemoccult ordered. H/H Q4HR ordered. Stat type and screen ordered. Pt. may require transfusion of PRBCs overnight based on timed H/H results. Pt. to be monitored closely overnight.
[2018-04-20 06:28] LABS: Hematocrit 27.8 % (35.3-44.9); Hemoglobin 8.8 g/dL (11.5-15.4)
--- NOTE | 2018-04-20 07:39 | Electrocardiograph Report ---
[place] [address] Test Date: 2018-04-19 Pat Name: Lydia Cyr Department: EXAM3 Room: [facility] Gender: F Manager Installation: : 1945 Requested By: Garrett Rhoades Order Number: [id number] Reading MD: Gee Sena Measurements Intervals [place] Rate: 60 P: NE: 76 QRS: 41 QRSD: 187 T: 73 QT: 511 QTc: 511 Interpretive Statements AV paced rhythm No further analysis due to paced rhythm Electronically Signed On 04-20-2018 7:37:51 EDT by Gee Sena
--- NOTE | 2018-04-20 08:22 | Electrocardiograph Report ---
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
[2018-04-20] MEDS: Vitamin B Complex/Vit C/Vit E 1 EACH TABLET PO SCH (08:49)
[2018-04-20] MEDS: *HR* HYDROcodone/Acet 5/325 mg TABLET PO PRN ×3 (08:49→18:30)
[2018-04-20] MEDS: Pantoprazole 40 MG VIAL IVP SCH (08:49)
[2018-04-20] MEDS: Diltiazem CD (24hr) 120 MG CAPSULE PO SCH (08:49)
--- NOTE | 2018-04-20 08:56 | Event Note ---
Date of Encounter: 04/20/18 Time of Encounter: 08:53 Pts records were reviewed. 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 She should be evaluated for reoccurrence of the membrane via TTE during her stay here. She is an acceptable risk for her intermediate risk surgery today.
[2018-04-20] MEDS: Insulin DETEMIR 100 UNIT/ML X5UNITS SQ SCH ×2 (08:58→20:44)
[2018-04-20 12:06] LABS: Hematocrit 26.4 % (35.3-44.9); Hemoglobin 8.4 g/dL (11.5-15.4)
[2018-04-20 16:48] LABS: Hematocrit 25.5 % (35.3-44.9); Hemoglobin 8.1 g/dL (11.5-15.4)
[2018-04-20] MEDS: Ketorolac 30 MG/ML VIAL IVP PRN (17:30)
--- NOTE | 2018-04-20 18:08 | Internal Med Progress Note ---
Hospitalist Progress Note - Encounter Date of Encounter: 04/20/18 Time of Encounter: 11:00 - Subjective Interval History: Patient with a drop in hemoglobin overnight from 10.4 to 7.6 She was typed and screened overnight. She is hemoglobin now 8.1;we will continue to monitor H&H Surgery scheduled for 04/21/18 - Exam Vitals: Temp Pulse Resp BP Pulse Ox 98.8 F 82 16 132/70 96 04/20/18 16:06 04/20/18 16:06 04/20/18 16:06 04/20/18 16:06 04/20/18 16:06 Exam: Gen.: Nonacute distress, alert and oriented 3 ENT: Mucosal membranes moist Respiratory: Lungs are clear to auscultation bilaterally without any wheezing rhonchi or rales Cardiovascular: Normal S1 and S2 regular rate rhythm no murmurs rubs or gallops Abdomen: Soft, nontender and nondistended with positive bowel sounds Extremities: No lower extremity edema Skin: Normal color - Assessment and Plan (1) Ankle fracture, left Current Visit: Yes Status: Acute Assessment and Plan: In the ER, left ankle x-ray showed displaced distal fibular and medial malleolar fractures with mild tibiotalar subluxation. Cardiology was consulted and states that patient is an acceptable intermediate risk for surgery Orthopedics consulted with recommendations to take patient to the OR on 04/21/18 (2) Anemia Current Visit: Yes Status: Acute Assessment and Plan: Patient with a drop in hemoglobin overnight from 10.4 to 7.6 She was typed and screened overnight. She is hemoglobin now 8.1;we will continue to monitor H&H Surgery scheduled for 04/21/18 (3) Fall Current Visit: Yes Status: Acute Assessment and Plan: Patient with mechanical fall Will consult physical therapy and appreciate recommendations for home safety (4) Hypoglycemia Current Visit: Yes Status: Acute Assessment and Plan: Patient with serum glucose of 58 on admission Patient without hypoglycemia so far during this admission Will continue to monitor (5) Atrial fibrillation Current Visit: No Status: Chronic Assessment and Plan: Controlled; continue Cardizem (6) Diabetes mellitus Current Visit: No Status: Chronic Assessment and Plan: Will hold metformin and continue home dose of insulin (7) HLD (hyperlipidemia) Current Visit: No Status: Chronic Assessment and Plan: Continue statin (8) DVT prophylaxis Current Visit: Yes Status: Acute Assessment and Plan: Patient with acute on chronic blood loss anemia therefore anticoagulation held - Time Spent with Patient Total time spent is greater than 50% in coordination of care (as documented) at patient's floor/unit and/or counseling patient: Internal Medicine: Result - Labs CBC & Chem 7: 04/20/18 16:13 04/20/18 01:19 Labs: Short CBC 04/20/18 04/20/18 04/20/18 Range/Units 01:19 06:13 10:59 WBC 3.7 L (4.3-11.1) K/mcL Hgb 7.6 L D 8.8 L 8.4 L (11.5-15.4) g/dL Hct 24.0 L 27.8 L 26.4 L (35.3-44.9) % Plt Count 165 (140-400) K/mcL Neutrophils # 2.8 (1.6-8.9) K/mcL 04/20/18 Range/Units 16:13 WBC (4.3-11.1) K/mcL Hgb 8.1 L (11.5-15.4) g/dL Hct 25.5 L (35.3-44.9) % Plt Count (140-400) K/mcL Neutrophils # (1.6-8.9) K/mcL BMP 04/20/18 01:19 Sodium 141 Potassium 3.6 Chloride 108 H Carbon Dioxide 28 BUN 13 Creatinine 0.66 Glucose 89 Calcium 8.6 - ABG Interpretation ABG results: PT/INR, D-dimer PT 12.8 Seconds (9.4-12.1) H 04/19/18 10:05 Consult Discharge Plan - Plan Referrals: Olga Gallego, PHOTOENGRAVING ETCHER APPRENTICE [Primary Care Provider] - (1) Ankle fracture, left Qualifiers: Encounter type: initial encounter Fracture type: closed Qualified Code(s): S82.892A - Other fracture of left lower leg, initial encounter for closed fracture (3) Fall Qualifiers: Encounter type: initial encounter Qualified Code(s): W19.XXXA - Unspecified fall, initial encounter (5) Atrial fibrillation Qualifiers: Atrial fibrillation type: paroxysmal Qualified Code(s): I48.0 - Paroxysmal atrial fibrillation (6) Diabetes mellitus Qualifiers: Diabetes mellitus type: type 2 Diabetes mellitus 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
[2018-04-20 20:33] LABS: Hematocrit 24.1 % (35.3-44.9); Hemoglobin 7.9 g/dL (11.5-15.4)
[2018-04-20] MEDS: D5% in 0.9% NACL 1,000 ML IVC SCH (20:48)
[2018-04-21] MEDS: *HR* HYDROcodone/Acet 5/325 mg TABLET PO PRN ×2 (00:02→08:25)
[2018-04-21 01:10] LABS: Hematocrit 24.6 % (35.3-44.9); Hemoglobin 7.9 g/dL (11.5-15.4)
[2018-04-21 05:39] LABS: Hematocrit 24.7 % (35.3-44.9); Hemoglobin 7.9 g/dL (11.5-15.4)
[2018-04-21] MEDS: Vitamin B Complex/Vit C/Vit E 1 EACH TABLET PO SCH (08:25)
[2018-04-21] MEDS: Diltiazem CD (24hr) 120 MG CAPSULE PO SCH (08:25)
[2018-04-21] MEDS: Pantoprazole 40 MG VIAL IVP SCH (08:25)
[2018-04-21] MEDS: Insulin DETEMIR 100 UNIT/ML X5UNITS SQ SCH ×2 (08:26→20:59)
[2018-04-21 09:25] LABS: Basophils % 0.2 %; Eosinophils # 0.1 K/mcL (0.0-0.6); Eosinophils % 1.2 %; Hematocrit 27.2 % (35.3-44.9); Hemoglobin 8.6 g/dL (11.5-15.4); Immature Granulocytes % 0.5 % (0-4); Lymphocytes # 0.4 K/mcL (0.6-4.6); Lymphocytes % 8.7 %; Mean Corpuscular HGB Conc 31.6 g/dL (31.6-35.5); Mean Corpuscular Hemoglobin 33.6 pg (28.0-33.3); Mean Corpuscular Volume 106.3 fL (83.0-100.0); Mean Platelet Volume 10.8 fL (9.4-12.4); Monocytes # 0.4 K/mcL (0.0-1.3); Monocytes % 10.4 %; Neutrophils # 3.3 K/mcL (1.6-8.9); Platelet Count 170 K/mcL (140-400); Red Blood Count 2.56 M/mcL (3.82-4.97); Red Cell Distribution Width 13.2 % (11.5-14.5)
[2018-04-21 09:42] LABS: BUN/Creatinine Ratio 19 (6-26); Blood Urea Nitrogen 10 mg/dL (8-23); Calcium 9.2 mg/dL (8.6-10.3); Carbon Dioxide 26 mEq/L (23-29); Chloride 107 mEq/L (98-107); Glucose 191 mg/dL (70-105); Osmolality,Calculated 294 (280-300); Potassium 3.8 mEq/L (3.5-5.1); Sodium 140 mEq/L (136-145); eGFR For Non-African Americans > 60 (> 60)
[2018-04-21] MEDS ORDERED: Ketorolac 30 MG/ML VIAL IVP ONE (13:01)
[2018-04-21] MEDS ORDERED: ROPIVACAINE HCL/PF 0.5% 30 ML VIAL ONE ×2 (14:39→14:58)
[2018-04-21] MEDS ORDERED: Bupivacaine/Clonidine Syringe 1 EACH SYRINGE ONE (14:40)
[2018-04-21] MEDS ORDERED: Lidocaine -MPF 2% 2 ML VIAL ONE (14:50)
[2018-04-21] MEDS ORDERED: *HR* Propofol 200 MG/20 ML VIAL IVP ONE (14:50)
[2018-04-21] MEDS ORDERED: Acetaminophen IV 1,000 MG/100 ML INFUS..BTL ONE (14:59)
[2018-04-21] MEDS ORDERED: *HR* FentaNYL (PF) 100 MCG/2 ML VIAL ONE ×2 (15:04→15:53)
[2018-04-21] MEDS ORDERED: *HR* Midazolam HCl 2 MG/2 ML VIAL ONE (15:04)
[2018-04-21] MEDS ORDERED: Bupivacaine/EPI 1:200k 0.25%PF 30 ML VIAL ONE (15:22)
--- NOTE | 2018-04-21 15:26 | Operative Note ---
Date of procedure: 04/21/18 Pre-op diagnosis: left bimalleolar ankle fracture Post-op diagnosis: same Procedure: ORIF left bimalleolar ankle fracture Implants: [place] locking plate with 3.5mm lock and non-locking screws, 3.0mm partially threaded cannulated screws. Anesthesia: GETA Local Anesthetics: 0.25% Sensorcaine HCL with Epinephrine 1:200,000 SubQ (cc) Surgeon: Ephraim Bhagat Was there an dental office assistant present: No Estimated blood loss (cc): 10 Tourniquet Time (Minutes): 37 Specimen: none Condition: stable Disposition: PACU Procedure in Detail: Indications: 72-year-old diabetic female who sustained a bimalleolar displaced ankle fracture undergoing ORIF after having the nature of the procedure, risks versus benefits potential complications and consequences of surgery and her condition discussed at length. She understood that she will have arthritis due to the nature of her injury. No guarantees were made as to the outcome of any procedure. All of her questions were answered and the informed consent was signed. Patient was given a popliteal block by anesthesia. The left lower extremity was scrubbed prepped and draped after the patient was placed on the operating room table in the supine position. A thigh tourniquet was applied and inflated to 300 mmHg. ORIF of left bimalleolar ankle fracture. Attention was directed to the lateral aspect of the patient's left ankle were #15 blade was used to make a skin incision approximately 7 cm in length. Skin incision was deepened through blunt dissection all traversing veins were divided and ligated using the Bovie or Vicryl ties as deemed appropriate. Care was taken to avoid neurovascular tendon structures. The periosteal layer was incised and freed from the fibula exposing the fracture zone of the lateral malleolus which was noted to be comminuted. Hematoma was evacuated from the fracture zone. The ankle was held in a reduced position with the talus under the tibia and well aligned and the ankle mortise. C-arm was utilized to confirm reduction of the talus and the ankle mortise and that the fibula was out to length. Reduction clamps were used to stabilize the fracture zone. Using standard technique a Matt locking plate was applied using 3.5 mm locking and nonlocking screws to the lateral aspect of the fibula bridging the fracture zone. The fibula was out to length. The site was flushed with saline irrigation. Stability of the fracture zone was assessed and the fracture zone had good apposition and the ankle was noted to be in good position and alignment on the C-arm. Attention was then directed medially where a #15 blade was used to make a skin incision over the medial malleolus. Skin incision was deepened through blunt dissection care was taken to avoid neurovascular tendinous structures. Hematoma was evacuated from the fracture zone and periosteum removed from the fracture zone. The medial malleolar fracture fragment was then reduced with a reduction clamp and pinned temporarily. C-arm was utilized to confirm position and alignment of the k- wires traversing the fracture zone. Fracture was noted to be reduced and two 3.0mm partially threaded cannulated matt screws were thrown across the fracture zone. No increase in medial clear space was noted and good tib-fib overlap was present. Reduction of the fracture zone was noted. Attention was then directed laterally where the cotton hook test was performed and no instability felt to be present at the syndesmosis. C-arm was utilized to confirm position and alignment of the fracture zones. There was no increased and medial clear space there was good tib-fib overlap and the talus was aligned in the ankle mortise and the fibula was out to length. Periosteal layers were closed with 2-0 Vicryl subcutaneous tissues were closed with 2-0 Vicryl and the skin was reapproximated with juana laterally. Postoperative bandaging included Xeroform, 4 x 4 gauze, Kerlix and an adequately padded posterior splint. The patient tolerated the anesthesia and the procedure well and was escorted to the recovery room with vital signs stable and vascular status intact to the left foot noted by instant capillary refill time to all digits of the left foot. Cryocuff applied. Elevation. Strict instructions given for non- weightbearing to the left lower extremity. Return to floor for discharge planning.
[2018-04-21] MEDS ORDERED: Lidocaine -MPF 4% 5 ML AMPUL ONE (15:31)
--- NOTE | 2018-04-21 15:43 | Anesthesia Procedures ---
Date of Encounter: 04/21/18 Time of Encounter: 15:20 Procedures: Anesthesia - Nerve Block Procedure Date: 04/21/18 Time: 15:20 Allergies/Adv Reactions: oxycodone Pre-op Diagnosis: left ankle rx Surgical Procedure: left ankle orif Checklist: Correct Patient Identifier, Correct procedure, History checked Correct side: Left Blood Thinner: No Monitor Applied: EKG, BP, Pulse Oximetry Supplemental Oxygen via Nasal Cannula (L/min): 2 Sedation: Versed (mg): 2 Sedation: Fentanyl (mcg): 100 Indication: Post Op Analgesia Pre-op Neuro Deficits: No Block Type: Popliteal (30ml), Other (adductor canal 20ml) Catheter placed: No Sterile Technique: Yes Ultrasound used: Yes Anatomy identified: Yes Visual spread of Local: Yes Neuro Stimulation: No Blood on Needle Aspiration: No Smooth Injection of Local: Yes Pain with Injection of Local: No Prep: Chlorhexadine Needle: 21 x 100 mm Stimuplex Local: Ropivacaine, Other (decadron 8mg x2) Volume (cc): 50 Number of Attempts: 1 Complications: None/effective block Vitals: Vital Signs/O2 Sat/Glucose, Most Recent Temp Pulse Resp BP Pulse Ox 98.0 F 66 14 148/63 100 04/21/18 07:57 04/21/18 15:24 04/21/18 15:24 04/21/18 15:24 04/21/18 15:24 Blood Glucose* 171
[2018-04-21] MEDS ORDERED: EPHEDrine 50 MG/ML VIAL ONE (16:06)
[2018-04-21] MEDS ORDERED: Dexamethasone 4 MG/ML VIAL ONE (16:12)
[2018-04-21] MEDS ORDERED: Ondansetron 4 MG/2 ML VIAL ONE (16:12)
[2018-04-21] MEDS ORDERED: *HR* HYDROmorphone 2 MG TABLET PO PRN ×2 (16:23→18:08)
[2018-04-21] MEDS ORDERED: MORPHINE SUL Oral CONC 10 MG/0.5 ML ORAL.SYG SL PRN (16:23)
--- NOTE | 2018-04-21 17:25 | Anesthesia Evaluation Post Op ---
Date of Encounter: 04/21/18 Time of Encounter: 17:25 - Vital Signs Vital Signs: Vital Signs/O2 Sat, Most Current Temp Pulse Resp BP Pulse Ox 98.6 F 76 18 154/71 94 04/21/18 17:17 04/21/18 17:17 04/21/18 17:17 04/21/18 17:17 04/21/18 17:17 - Lungs Lungs: Clear Ascult./Percussion - Airway Airway: Non-obstructed - Cardiovascular Regular Rate - Mental Status Mental Status: Alert & Oriented, Answers Appropriately - Pain Pain Scale: 0 Pain Scale used: Numeric (1 - 10) - Nausea Vomiting Nausea Vomiting: Not Present - Hydration Hydration: NPO, Has not voided - Discharge PostOp Status: Transfer Patient to floor
[2018-04-21] MEDS ORDERED: Naloxone 0.4 MG/ML INJ IVP PRN (18:08)
[2018-04-21] MEDS ORDERED: Nitroglycerin 0.4 MG TAB.SUBL SL PRN (18:08)
[2018-04-21] MEDS ORDERED: Famotidine 20 MG TABLET PO PRN (18:08)
--- NOTE | 2018-04-21 19:53 | Internal Med Progress Note ---
Hospitalist Progress Note - Encounter Date of Encounter: 04/21/18 Time of Encounter: 11:00 - Subjective Interval History: Patient postop day 0 for ORIF of left bimalleolar ankle fracture - Exam Vitals: Temp Pulse Resp BP Pulse Ox 97.9 F 73 16 138/71 94 04/21/18 18:53 04/21/18 18:53 04/21/18 18:53 04/21/18 18:53 04/21/18 18:53 Exam: Gen.: Nonacute distress, alert and oriented 3 ENT: Mucosal membranes moist Respiratory: Lungs are clear to auscultation bilaterally without any wheezing rhonchi or rales Cardiovascular: Normal S1 and S2 regular rate rhythm no murmurs rubs or gallops Abdomen: Soft, nontender and nondistended with positive bowel sounds Extremities: No lower extremity edema Skin: Normal color - Assessment and Plan (1) Ankle fracture, left Current Visit: Yes Status: Acute Assessment and Plan: In the ER, left ankle x-ray showed displaced distal fibular and medial malleolar fractures with mild tibiotalar subluxation. Patient postop day 0 for ORIF of left bimalleolar ankle fracture (2) Anemia Current Visit: Yes Status: Acute Assessment and Plan: Patient with a drop in hemoglobin overnight from 10.4 to 7.6 She was typed and screened overnight. She is hemoglobin now 8.1;we will continue to monitor H&H Surgery scheduled for 04/21/18 (3) Fall Current Visit: Yes Status: Acute Assessment and Plan: Patient with mechanical fall Will consult physical therapy and appreciate recommendations for home safety (4) Hypoglycemia Current Visit: Yes Status: Acute Assessment and Plan: Patient with serum glucose of 58 on admission Patient without hypoglycemia so far during this admission Will continue to monitor (5) Atrial fibrillation Current Visit: No Status: Chronic Assessment and Plan: Controlled; continue Cardizem (6) Diabetes mellitus Current Visit: No Status: Chronic Assessment and Plan: Will hold metformin and continue home dose of insulin (7) HLD (hyperlipidemia) Current Visit: No Status: Chronic Assessment and Plan: Continue statin (8) DVT prophylaxis Current Visit: Yes Status: Acute Assessment and Plan: Patient started on Xarelto per orthopedics - Time Spent with Patient Total time spent is greater than 50% in coordination of care (as documented) at patient's floor/unit and/or counseling patient: Internal Medicine: Result - Labs CBC & Chem 7: 04/21/18 08:57 04/21/18 08:57 Labs: Short CBC 04/20/18 04/21/18 04/21/18 Range/Units 20:15 00:41 05:18 WBC (4.3-11.1) K/mcL Hgb 7.9 L 7.9 L 7.9 L (11.5-15.4) g/dL Hct 24.1 L 24.6 L 24.7 L (35.3-44.9) % Plt Count (140-400) K/mcL Neutrophils # (1.6-8.9) K/mcL 04/21/18 Range/Units 08:57 WBC 4.1 L (4.3-11.1) K/mcL Hgb 8.6 L (11.5-15.4) g/dL Hct 27.2 L (35.3-44.9) % Plt Count 170 (140-400) K/mcL Neutrophils # 3.3 (1.6-8.9) K/mcL BMP 04/21/18 08:57 Sodium 140 Potassium 3.8 Chloride 107 Carbon Dioxide 26 BUN 10 Creatinine 0.52 L Glucose 191 H Calcium 9.2 - ABG Interpretation ABG results: PT/INR, D-dimer PT 12.8 Seconds (9.4-12.1) H 04/19/18 10:05 - Impressions Impressions Fluoroscopy 04/21/18 00:00 IMPRESSION: Intraprocedural fluoroscopic spot images as above. See separate procedure report for more information. D/ / Ash Padgett / Ash Padgett Interpreting Provider: Ash Padgett - VTE Documentation of Mechanical Device: Intermittent pneumatic compression device Consult Discharge Plan - Plan Referrals: Olga Gallego, TELEPHONE ADVICE NURSE [Primary Care Provider] - (1) Ankle fracture, left Qualifiers: Encounter type: initial encounter Fracture type: closed Qualified Code(s): S82.892A - Other fracture of left lower leg, initial encounter for closed fracture (3) Fall Qualifiers: Encounter type: initial encounter Qualified Code(s): W19.XXXA - Unspecified fall, initial encounter (5) Atrial fibrillation Qualifiers: Atrial fibrillation type: paroxysmal Qualified Code(s): I48.0 - Paroxysmal atrial fibrillation (6) Diabetes mellitus Qualifiers: Diabetes mellitus type: type 2 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
[2018-04-21] MEDS: D5% in 0.9% NACL 1,000 ML IVC SCH ×2 (20:24→20:54)
[2018-04-21] MEDS ORDERED: *HR* Heparin 5,000 UNIT/ML VIAL SQ SCH (22:00)
[2018-04-22] MEDS ORDERED: D5% in Water 1,000 ML IVC PRN ×2 (00:50→14:58)
[2018-04-22] MEDS ORDERED: *HR* Dextrose 50 % in Water (Syg) 50 ML SYRINGE IVP PRN ×2 (00:50→14:58)
[2018-04-22] MEDS ORDERED: Dextrose Gel 15 GM/37.5 ML TUBE PO PRN ×4 (00:50→14:58)
[2018-04-22] MEDS ORDERED: Insulin LISPRO 300 UNITS/3 ML VIAL SQ SCH ×2 (01:00→21:00)
[2018-04-22] MEDS: Diltiazem CD (24hr) 120 MG CAPSULE PO SCH (08:53)
[2018-04-22] MEDS: Vitamin B Complex/Vit C/Vit E 1 EACH TABLET PO SCH (08:53)
[2018-04-22] MEDS: Pantoprazole 40 MG VIAL IVP SCH (08:54)
[2018-04-22] MEDS: Insulin DETEMIR 100 UNIT/ML X5UNITS SQ SCH ×2 (08:54→21:12)
[2018-04-22] MEDS: Insulin LISPRO 300 UNITS/3 ML VIAL SQ SCH ×3 (08:58→17:17)
[2018-04-22 12:03] LABS: Hemoglobin 7.7 g/dL (11.5-15.4); Immature Granulocytes % 0.8 % (0-4); Lymphocytes # 0.2 K/mcL (0.6-4.6); Lymphocytes % 5.1 %; Mean Corpuscular HGB Conc 32.1 g/dL (31.6-35.5); Mean Corpuscular Hemoglobin 33.2 pg (28.0-33.3); Mean Corpuscular Volume 103.4 fL (83.0-100.0); Mean Platelet Volume 11.4 fL (9.4-12.4); Monocytes # 0.2 K/mcL (0.0-1.3); Monocytes % 4.9 %; Neutrophils # 4.2 K/mcL (1.6-8.9); Platelet Count 185 K/mcL (140-400); Red Blood Count 2.32 M/mcL (3.82-4.97); Red Cell Distribution Width 13.2 % (11.5-14.5); Segmented Neutrophils % 89.2 %
[2018-04-22 12:20] LABS: BUN/Creatinine Ratio 26 (6-26); Blood Urea Nitrogen 18 mg/dL (8-23); Carbon Dioxide 25 mEq/L (23-29); Chloride 104 mEq/L (98-107); Glucose 390 mg/dL (70-105); Osmolality,Calculated 304 (280-300); Potassium 4.2 mEq/L (3.5-5.1); Sodium 138 mEq/L (136-145); eGFR For Non-African Americans > 60 (> 60)
[2018-04-22] MEDS: Acetaminophen 325 MG TABLET PO PRN ×2 (13:06→21:11)
[2018-04-22] MEDS ORDERED: *HR* Rivaroxaban 10 MG TABLET PO SCH (17:00)
[2018-04-22] MEDS: *HR* Metformin 500 MG TABLET PO SCH (17:17)
[2018-04-22 17:48] LABS: Hematocrit 24.3 % (35.3-44.9)
--- NOTE | 2018-04-22 20:04 | Internal Med Progress Note ---
Hospitalist Progress Note - Encounter Date of Encounter: 04/22/18 Time of Encounter: 11:00 - Subjective Interval History: Patient presented with left ankle fracture status post fall She is now postop day 1 for ORIF of left bimalleolar ankle fracture Physical therapy consulted with recommendations for swing bed for rehabilitation ; pending precertification with case management - Exam Vitals: Temp Pulse Resp BP Pulse Ox 98.2 F 78 18 174/72 97 04/22/18 18:58 04/22/18 18:58 04/22/18 18:58 04/22/18 18:58 04/22/18 18:58 Exam: Gen.: Nonacute distress, alert and oriented 3 ENT: Mucosal membranes moist Respiratory: Lungs are clear to auscultation bilaterally without any wheezing rhonchi or rales Cardiovascular: Normal S1 and S2 regular rate rhythm no murmurs rubs or gallops Abdomen: Soft, nontender and nondistended with positive bowel sounds Extremities: No lower extremity edema Skin: Normal color - Assessment and Plan (1) Ankle fracture, left Current Visit: Yes Status: Acute Assessment and Plan: In the ER, left ankle x-ray showed displaced distal fibular and medial malleolar fractures with mild tibiotalar subluxation. Patient postop day 1 for ORIF of left bimalleolar ankle fracture Physical therapy with recommendations for swing bed for rehabilitation (2) Anemia Current Visit: Yes Status: Acute Assessment and Plan: Hemoglobin stable at 8.0 Continue to monitor (3) Fall Current Visit: Yes Status: Acute Assessment and Plan: Patient with mechanical fall Recommendations for swing bed as above (4) Hypoglycemia Current Visit: Yes Status: Acute Assessment and Plan: Resolved; continue to monitor (5) Atrial fibrillation Current Visit: No Status: Chronic Assessment and Plan: Controlled; continue Cardizem (6) Diabetes mellitus Current Visit: No Status: Chronic Assessment and Plan: We will restart patient's metformin dose and continue sliding scale insulin (7) HLD (hyperlipidemia) Current Visit: No Status: Chronic Assessment and Plan: Continue statin (8) DVT prophylaxis Current Visit: Yes Status: Acute Assessment and Plan: Patient started on Xarelto per orthopedics - Time Spent with Patient Total time spent is greater than 50% in coordination of care (as documented) at patient's floor/unit and/or counseling patient: Internal Medicine: Result - Labs CBC & Chem 7: 04/22/18 17:33 04/22/18 11:39 Labs: Short CBC 04/22/18 04/22/18 Range/Units 11:39 17:33 WBC 4.7 (4.3-11.1) K/mcL Hgb 7.7 L 8.0 L (11.5-15.4) g/dL Hct 24.0 L 24.3 L (35.3-44.9) % Plt Count 185 (140-400) K/mcL Neutrophils # 4.2 (1.6-8.9) K/mcL BMP 04/22/18 11:39 Sodium 138 Potassium 4.2 Chloride 104 Carbon Dioxide 25 BUN 18 Creatinine 0.70 Glucose 390 H Calcium 9.0 - ABG Interpretation ABG results: PT/INR, D-dimer PT 12.8 Seconds (9.4-12.1) H 04/19/18 10:05 - Impressions Impressions Fluoroscopy 04/21/18 00:00 IMPRESSION: Intraprocedural fluoroscopic spot images as above. See separate procedure report for more information. D/ / Ash Padgett / sAh Padgett Interpreting Provider: Ash Padgett - VTE Documentation of Mechanical Device: Intermittent pneumatic compression device Consult Discharge Plan - Plan Referrals: Olga Gallego, NIGHT CLUB MANAGER [Primary Care Provider] - (1) Ankle fracture, left Qualifiers: Encounter type: initial encounter Fracture type: closed Qualified Code(s): S82.892A - Other fracture of left lower leg, initial encounter for closed fracture (3) Fall Qualifiers: Encounter type: initial encounter Qualified Code(s): W19.XXXA - Unspecified fall, initial encounter (5) Atrial fibrillation Qualifiers: Atrial fibrillation type: paroxysmal Qualified Code(s): I48.0 - Paroxysmal atrial fibrillation (6) Diabetes mellitus Qualifiers: Diabetes mellitus type: type 2 Diabetes mellitus detention insulin use: with manager long term care use Diabetes mellitus complication status: with unspecified complications Qualified Code(s): E11.8 - Type 2 diabetes mellitus with unspecified complications; Z79.4 - [facility] (current) use of insulin (7) HLD (hyperlipidemia) Qualifiers: Hyperlipidemia type: mixed hyperlipidemia Qualified Code(s): E78.2 - Mixed hyperlipidemia
[2018-04-22] MEDS: *HR* HYDROcodone/Acet 5/325 mg TABLET PO PRN (23:00)
[2018-04-22 23:03] LABS: Hematocrit 25.6 % (35.3-44.9); Hemoglobin 8.4 g/dL (11.5-15.4)
[2018-04-23 01:44] LABS: Hemoglobin 7.7 g/dL (11.5-15.4); Immature Granulocytes % 0.7 % (0-4); Lymphocytes # 0.4 K/mcL (0.6-4.6); Lymphocytes % 5.1 %; Mean Corpuscular HGB Conc 32.1 g/dL (31.6-35.5); Mean Corpuscular Hemoglobin 33.5 pg (28.0-33.3); Mean Corpuscular Volume 104.3 fL (83.0-100.0); Mean Platelet Volume 10.8 fL (9.4-12.4); Monocytes % 10.2 %; Nucleated Red Blood Cells 0.3 /100 WBC (0); Platelet Count 193 K/mcL (140-400); Red Cell Distribution Width 13.3 % (11.5-14.5)
[2018-04-23 01:49] LABS: Monocytes # 0.7 K/mcL (0.0-1.3); Neutrophils # 6.1 K/mcL (1.6-8.9)
[2018-04-23 02:04] LABS: BUN/Creatinine Ratio 32 (6-26); Blood Urea Nitrogen 22 mg/dL (8-23); Calcium 9.4 mg/dL (8.6-10.3); Carbon Dioxide 24 mEq/L (23-29); Chloride 107 mEq/L (98-107); Glucose 161 mg/dL (70-105); Osmolality,Calculated 299 (280-300); Potassium 3.9 mEq/L (3.5-5.1); Sodium 141 mEq/L (136-145); eGFR For Non-African Americans > 60 (> 60)
[2018-04-23] MEDS: *HR* HYDROcodone/Acet 5/325 mg TABLET PO PRN ×2 (04:22→13:05)
[2018-04-23 06:00] LABS: Hematocrit 25.3 % (35.3-44.9); Hemoglobin 8.2 g/dL (11.5-15.4)
[2018-04-23] MEDS: Vitamin B Complex/Vit C/Vit E 1 EACH TABLET PO SCH (08:45)
[2018-04-23] MEDS: MORPHINE SUL Oral CONC 10 MG/0.5 ML ORAL.SYG SL PRN ×2 (08:45→14:13)
[2018-04-23] MEDS: Pantoprazole 40 MG VIAL IVP SCH (08:46)
[2018-04-23] MEDS: *HR* Metformin 500 MG TABLET PO SCH (08:46)
[2018-04-23] MEDS: Diltiazem CD (24hr) 120 MG CAPSULE PO SCH (08:46)
[2018-04-23] MEDS: Insulin LISPRO 300 UNITS/3 ML VIAL SQ SCH ×2 (08:47→13:05)
[2018-04-23] MEDS: Insulin DETEMIR 100 UNIT/ML X5UNITS SQ SCH (08:48)
--- NOTE | 2018-04-23 09:46 | Internal Med Progress Note ---
Hospitalist Progress Note - Encounter Date of Encounter: 04/23/18 - Subjective Interval History: Patient presented with left ankle fracture status post fall She is now postop day 2 for ORIF of left bimalleolar ankle fracture Physical therapy consulted with recommendations for swing bed for rehabilitation ; pending precertification with case management - Exam Vitals: Temp Pulse Resp BP Pulse Ox 98.1 F 70 16 152/62 99 04/23/18 07:23 04/23/18 07:23 04/23/18 07:23 04/23/18 07:23 04/23/18 07:23 - Assessment and Plan (1) Ankle fracture, left Current Visit: Yes Status: Acute Assessment and Plan: In the ER, left ankle x-ray showed displaced distal fibular and medial malleolar fractures with mild tibiotalar subluxation. Patient postop day 2 for ORIF of left bimalleolar ankle fracture Orthopedics following and appreciate recommendations Physical therapy with recommendations for swing bed for rehabilitation (2) Anemia Current Visit: Yes Status: Acute Assessment and Plan: Hemoglobin 7.7 today and was 10.4 on admission Order occult stool Continue to monitor (3) Fall Current Visit: Yes Status: Acute Assessment and Plan: Patient with mechanical fall Recommendations for swing bed as above (4) Hypoglycemia Current Visit: Yes Status: Acute Assessment and Plan: Resolved; continue to monitor (5) Atrial fibrillation Current Visit: No Status: Chronic Assessment and Plan: Controlled; continue Cardizem (6) Diabetes mellitus Current Visit: No Status: Chronic Assessment and Plan: Continue home dose of metformin and sliding scale insulin (7) HLD (hyperlipidemia) Current Visit: No Status: Chronic Assessment and Plan: Continue statin (8) DVT prophylaxis Current Visit: Yes Status: Acute Assessment and Plan: Patient started on Xarelto per orthopedics - Time Spent with Patient Total time spent is greater than 50% in coordination of care (as documented) at patient's floor/unit and/or counseling patient: Internal Medicine: Result - Labs CBC & Chem 7: 04/23/18 05:44 04/23/18 01:12 Labs: Short CBC 04/22/18 04/22/18 04/22/18 Range/Units 11:39 17:33 22:53 WBC 4.7 (4.3-11.1) K/mcL Hgb 7.7 L 8.0 L 8.4 L (11.5-15.4) g/dL Hct 24.0 L 24.3 L 25.6 L (35.3-44.9) % Plt Count 185 (140-400) K/mcL Neutrophils # 4.2 (1.6-8.9) K/mcL 04/23/18 04/23/18 Range/Units 01:12 05:44 WBC 7.3 D (4.3-11.1) K/mcL Hgb 7.7 L 8.2 L (11.5-15.4) g/dL Hct 24.0 L 25.3 L (35.3-44.9) % Plt Count 193 (140-400) K/mcL Neutrophils # 6.1 (1.6-8.9) K/mcL BMP 04/22/18 04/23/18 11:39 01:12 Sodium 138 141 Potassium 4.2 3.9 Chloride 104 107 Carbon Dioxide 25 24 BUN 18 22 Creatinine 0.70 0.68 Glucose 390 H 161 H Calcium 9.0 9.4 - ABG Interpretation ABG results: PT/INR, D-dimer PT 12.8 Seconds (9.4-12.1) H 04/19/18 10:05 - Impressions Impressions Fluoroscopy 04/21/18 00:00 IMPRESSION: Intraprocedural fluoroscopic spot images as above. See separate procedure report for more information. D/ / Ash Padgett / Ash Padgett Interpreting Provider: Ash Padgett - VTE Documentation of Mechanical Device: Intermittent pneumatic compression device Consult Discharge Plan - Plan Referrals: Olga Gallego, INSPECTOR SHELLS [Primary Care Provider] - (1) Ankle fracture, left Qualifiers: Encounter type: initial encounter Fracture type: closed Qualified Code(s): S82.892A - Other fracture of left lower leg, initial encounter for closed fracture (3) Fall Qualifiers: Encounter type: initial encounter Qualified Code(s): W19.XXXA - Unspecified fall, initial encounter (5) Atrial fibrillation Qualifiers: Atrial fibrillation type: paroxysmal Qualified Code(s): I48.0 - Paroxysmal atrial fibrillation (6) Diabetes mellitus Qualifiers: Diabetes mellitus type: type 2 Diabetes mellitus exterminator termite insulin use: with exterminator termite use Diabetes mellitus complication status: with unspecified complications Qualified Code(s): E11.8 - Type 2 diabetes mellitus with unspecified complications; Z79.4 - [facility] (current) use of insulin (7) HLD (hyperlipidemia) Qualifiers: Hyperlipidemia type: mixed hyperlipidemia Qualified Code(s): E78.2 - Mixed hyperlipidemia
--- NOTE | 2018-04-23 11:45 | Discharge Summary ---
- NOTES TO OUTPATIENT PROVIDER Notes to Outpatient Provider: Patient to have CBC monitor for acute on chronic anemia on oral anticoagulation for recent fracture and history of A. fib Orders not resulted at time of discharge: Pending orders 04/20/18 02:00 Fecal Hemoccult [Occult Blood,Stool] [BF] Timed 04/21/18 14:57 US anesthesia pain block [US] Routine 04/23/18 11:15 Hemoglobin and Hematocrit [HEME] Q6H 04/23/18 17:15 Hemoglobin and Hematocrit [HEME] Q6H 04/23/18 23:15 Hemoglobin and Hematocrit [HEME] Q6H 04/24/18 04:00 Basic Metabolic Panel AM 0400 Complete Blood Count [HEME] AM 0400 04/25/18 04:00 Basic Metabolic Panel AM 0400 Complete Blood Count [HEME] AM 0400 Date of Encounter: 04/23/18 Time of Encounter: 11:00 - Discharge Diagnosis (1) Ankle fracture, left Priority: Primary Status: Acute Qualifiers: Encounter type: initial encounter Fracture type: closed Qualified Code(s) : S82.892A - Other fracture of left lower leg, initial encounter for closed fracture (2) Anemia Priority: Secondary Status: Acute Qualifiers: Chronic kidney disease stage: unspecified stage Qualified Code(s): N18.9 - Chronic kidney disease, unspecified; D63.1 - Anemia in chronic kidney disease (3) Fall Priority: Secondary Status: Acute Qualifiers: Encounter type: initial encounter Qualified Code(s): W19.XXXA - Unspecified fall, initial encounter (4) Hypoglycemia Priority: Secondary Status: Acute (5) Atrial fibrillation Priority: Secondary Status: Chronic Qualifiers: Atrial fibrillation type: paroxysmal Qualified Code(s): I48.0 - Paroxysmal atrial fibrillation (6) Diabetes mellitus Priority: Secondary Status: Chronic Qualifiers: Diabetes mellitus type: type 2 Diabetes mellitus group home insulin use: with group home use Diabetes mellitus complication status: with unspecified complications Qualified Code(s): E11.8 - Type 2 diabetes mellitus with unspecified complications; Z79.4 - 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 She reports that while walking to her kitchen this morning she slipped and immediately experienced left lower leg pain which is constant and worse with movement and without any relief in symptoms. Patient was brought into the ER for further evaluation. In the ER, left ankle x-ray showed displaced distal fibular and medial malleolar fractures with mild tibiotalar subluxation. Patient was admitted to medical surgical floor for further management. During patients hospital stay orthopedics was consulted with recommendation for ORIF of left bimalleolar ankle on 04/21/18. Physical therapy consulted with recommendations for strengthening rehabilitation at a intermediate facility. Patient will be discharged on Xarelto and to monitor acute on chronic anemia. - Time Spent with Patient Total time spent providing and/or coordinating discharge services: Less than 30 minutes - Discharge Medications Prescriptions: HYDROcodone/Acet 5/325 mg [Bedford 5-325 mg] 1 tab PO Q4HR PRN 5 Days #30 tablet PRN Reason: Moderate Pain Home Medications: Cinnamon Bark [Cinnamon] 500 mg PO DAILY 06/01/16 [History] Famotidine [Heartburn Prevention] 20 mg PO BID PRN 06/01/16 [History] Insulin ASPART [Novolog Flexpen] 0 unit SQ TID PRN 06/01/16 [History] Metformin HCl [Glucophage] 1,000 mg PO BID 06/01/16 [History] Metoprolol [Lopressor] 25 mg PO BID 06/01/16 [History] Nitroglycerin [Nitrostat] 0.4 mg SL Q5M PRN MDD X1DOSE CALL 911 06/01/16 [ History] Pravastatin Sodium [Pravachol] 40 mg PO HS 06/01/16 [History] Vitamin B Complex Vit C No.4 [Super B Complex] 150 mg PO DAILY 06/01/16 [History ] Lisinopril [Zestril] 10 mg PO DAILY 10/26/16 [History] Amiodarone [Cordarone] 200 mg PO BID 04/18/18 [History] Calcium Carbonate/Vitamin D3 [Calcium 500 + Vit D Caplet] 1 tab PO DAILY [History] Insulin Glargine,Hum.rec.anlog [Basaglar Kwikpen U-100] 15 unit SQ HS 04/19/18 [ History] Insulin Glargine,Hum.rec.anlog [Basaglar Kwikpen U-100] 35 unit SQ QAM 04/19/18 [History] dilTIAZem HCl [Diltiazem 24Hr ER] 120 mg PO DAILY 04/19/18 [History] predniSONE [PredniSONE] 10 mg PO AD 04/19/18 [History] HYDROcodone/Acet 5/325 mg [Bedford 5-325 mg] 1 tab PO Q4HR PRN 5 Days #30 tablet 04/23/18 [Rx] Rivaroxaban [Xarelto] 10 mg PO 1700 tablet 04/23/18 [Rx] Allergies/Adverse Reactions: 3 Allergy/AdvReac Type Severity Reaction Status Date / Time Oxycodone [From OxyContin] AdvReac Severe Hallucinati Verified 04/19/18 06:48 ng Date of admission: 04/19/18 06:47 Primary care physician: Olga Gallego CNP Consults: 04/19/18 09:12 Consult to Orthopedic Surgery [CONS] Routine Consulting Provider: [facility] Reason for Consult: fractured ankle Call Completed: Yes 04/22/18 11:58 Consult to Occupational Therapy [CONS] Routine Comment: Evaluate, develop and implement POC Reason for Consult: eval and treat Does patient have active BEDREST order?: No Is patient medically & hemodynamically stable?: Yes Patient assessed for mobility or mobilized this visit?: No Consult to Physical Therapy [CONS] Routine Comment: Evaluate, develop and implement POC Reason for Consult: eval and treat Does patient have active BEDREST order?: No Is patient medically & hemodynamically stable?: Yes Patient assessed for mobility or mobilized this visit?: No - Constitutional Vitals: Temp Pulse Resp BP Pulse Ox 98.1 F 70 16 152/62 99 04/23/18 07:23 04/23/18 07:23 04/23/18 07:23 04/23/18 07:23 04/23/18 07:23 General appearance: Present: A&O X 3, no acute distress Exam: See below - Cardiovascular Cardiovascular exam: Present: RRR, +S1, +S2. Absent: diastolic murmur, gallop, rubs, systolic murmur - Patient Status Disposition: Transfer SNF Condition: Fair - Discharge Instructions Follow Up With: Olga Gallego CNP [Primary Care Provider] - Ephraim Bhagat DPM [Partnered Physician] - (Web request sent. Will call patient at home. ) - VTE Documentation of Mechanical Device: Intermittent pneumatic compression device
--- NOTE | 2018-04-23 11:45 | Physician Discharge Referral ---
ExtendedCare Referral Info Institutional Level of Care: Skilled - Diagnosis (1) Ankle fracture, left Status: Acute (2) Anemia Status: Acute (3) Fall Status: Acute (4) Hypoglycemia Status: Acute (5) Atrial fibrillation Status: Chronic (6) Diabetes mellitus Status: Chronic (7) HLD (hyperlipidemia) Status: Chronic (8) DVT prophylaxis Status: Acute - Transfer Medications Prescriptions: HYDROcodone/Acet 5/325 mg [Dewart 5-325 mg] 1 tab PO Q4HR PRN 5 Days #30 tablet PRN Reason: Moderate Pain Home Medications: Cinnamon Bark [Cinnamon] 500 mg PO DAILY 06/01/16 [History] Famotidine [Heartburn Prevention] 20 mg PO BID PRN 06/01/16 [History] Insulin ASPART [Novolog Flexpen] 0 unit SQ TID PRN 06/01/16 [History] Metformin HCl [Glucophage] 1,000 mg PO BID 06/01/16 [History] Metoprolol [Lopressor] 25 mg PO BID 06/01/16 [History] Nitroglycerin [Nitrostat] 0.4 mg SL Q5M PRN MDD X1DOSE CALL 911 06/01/16 [ History] Pravastatin Sodium [Pravachol] 40 mg PO HS 06/01/16 [History] Vitamin B Complex Vit C No.4 [Super B Complex] 150 mg PO DAILY 06/01/16 [History ] Lisinopril [Zestril] 10 mg PO DAILY 10/26/16 [History] Amiodarone [Cordarone] 200 mg PO BID 04/18/18 [History] Calcium Carbonate/Vitamin D3 [Calcium 500 + Vit D Caplet] 1 tab PO DAILY [History] Insulin Glargine,Hum.rec.anlog [Basaglar Kwikpen U-100] 15 unit SQ HS 04/19/18 [ History] Insulin Glargine,Hum.rec.anlog [Basaglar Kwikpen U-100] 35 unit SQ QAM 04/19/18 [History] dilTIAZem HCl [Diltiazem 24Hr ER] 120 mg PO DAILY 04/19/18 [History] predniSONE [PredniSONE] 10 mg PO AD 04/19/18 [History] HYDROcodone/Acet 5/325 mg [Dewart 5-325 mg] 1 tab PO Q4HR PRN 5 Days #30 tablet 04/23/18 [Rx] Rivaroxaban [Xarelto] 10 mg PO 1700 tablet 04/23/18 [Rx] Allergies/Adverse Reactions: 3 Allergy/AdvReac Type Severity Reaction Status Date / Time Oxycodone [From OxyContin] AdvReac Severe Hallucinati Verified 04/19/18 06:48 ng - Respiratory Orders Smoking Cessation: Smoking cessation has been advised. For more information, call the [place] Tobacco Quit Line at 3-567-CPFTNOW. CERTIFICATION: I certify that the transfer of the above named patient to an Extended Care Facility is necessary for the continuing treatment of the diagnosis listed. The above information is true and accurate reflection of patient's current condition. Confidential - Redisclosure prohibited without a patient's written consent.
[2018-04-23 12:02] VITALS: BP 147/70
[2018-04-23 12:41] LABS: Hematocrit 27.3 % (35.3-44.9); Hemoglobin 8.7 g/dL (11.5-15.4)
--- NOTE | 2018-04-25 14:12 | Electrocardiograph Report ---
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
== END 2018-04-23 15:07 ==
LOC: 3NENU 04:52 → EMEROOARM 04:52 → SUATTDRO 06:47 → 3NENU 07:38
PROVIDERS: ADMIT Pediatrics; ATTEND Hospitalist

== ENCOUNTER 2018-09-03 16:48 | Observation (INO) ==
--- NOTE | 2018-09-03 17:30 | Emergency Department Note ---
Disposition Clinical Impression: Dehydration, CARLOS EDUARDO (acute kidney injury), Elevated troponin Disposition: Admitted As Inpatient Condition: Fair Referrals: Olga Gallego CNP [Primary Care Provider] - Forms: ED Satisfaction Letter, Work/School Release General Adult HPI - General Chief complaint: ED General Medical Stated complaint: General Weakness Time Seen by Provider: 09/03/18 16:59 Source: EMS Limitations: no limitations - History of Present Illness Pain Scale: 0 - Related Data Home Medications Medication Instructions Recorded Confirmed Insulin ASPART [Novolog Flexpen] 0 unit SQ TID PRN 06/01/16 07/16/18 Metformin HCl [Glucophage] 1,000 mg PO BID 06/01/16 07/16/18 Metoprolol [Lopressor] 25 mg PO BID 06/01/16 07/16/18 Nitroglycerin [Nitrostat] 0.4 mg SL Q5M PRN MDD X1DOSE CALL 06/01/16 07/16/18 911 Pravastatin Sodium [Pravachol] 40 mg PO HS 06/01/16 07/16/18 Lisinopril [Zestril] 10 mg PO DAILY 10/26/16 07/16/18 Calcium Carbonate/Vitamin D3 1 tab PO DAILY 04/19/18 07/16/18 [Calcium 500 + Vit D Caplet] Insulin Glargine,Hum.rec.anlog 25 unit SQ HS 04/19/18 07/16/18 [Basaglar Kwikpen U-100] Insulin Glargine,Hum.rec.anlog 35 unit SQ QAM 04/19/18 07/16/18 [Basaglar Kwikpen U-100] dilTIAZem HCl [Diltiazem 24Hr ER] 120 mg PO DAILY 04/19/18 07/16/18 Vitamin B Complex [B Complex] 1 tab PO DAILY 07/11/18 07/16/18 Previous Rx's Medication Instructions Recorded Amiodarone [Cordarone] 200 mg PO DAILY #0 07/14/18 Gabapentin [Neurontin] 200 mg PO TID #90 capsule 07/14/18 Polyethylene Glycol 3350 [MiraLAX] 17 gm PO DAILY PRN #30 powd.pack 07/14/18 Rivaroxaban [Xarelto] 20 mg PO DAILY #30 tablet 07/14/18 Sennosides/Docusate Sodium [Senna 1 each PO BID PRN #60 tablet 07/14/18 Plus] Allergies Allergy/AdvReac Type Severity Reaction Status Date / Time oxycodone [From OxyContin] AdvReac Severe Hallucinati Verified 09/03/18 16:59 ng Past Medical History - Past Medical History Medical history: Reports: arthritis, atrial fibrillation, cancer, coronary artery disease, diabetes, GERD, hyperlipidemia, hypertension, osteoporosis, other Surgical history: Reports: cancer surgery, other, vascular surgery Psychiatric history: Reports: anxiety - Social History Smoking Status: Former smoker Smokeless Tobacco Status: No Alcohol use: Reports: none Drug use: Reports: none Physical Exam - General Limitations: no limitations General appearance: alert, in no apparent distress Course Vital Signs Temperature 98.7 F 09/03/18 16:56 Pulse Rate 60 09/03/18 16:56 Respiratory Rate 15 09/03/18 16:56 Blood Pressure 104/85 09/03/18 16:56 O2 Sat by Pulse Oximetry 100 09/03/18 16:56 Temperature 98.7 F 09/03/18 16:56 Pulse Rate 60 09/03/18 16:56 Respiratory Rate 15 09/03/18 16:56 Blood Pressure 104/85 09/03/18 16:56 O2 Sat by Pulse Oximetry 100 09/03/18 16:56 Oxygen Delivery Oxygen Delivery Room Air Medical Decision Making - Lab Data Result diagrams: 09/03/18 17:05 09/03/18 17:05 Lab Results 09/03/18 09/03/18 Range/Units 17:05 17:05 WBC 7.4 (4.3-11.1) K/mcL RBC 3.13 L (3.82-4.97) M/mcL Hgb 10.3 L (11.5-15.4) g/dL Hct 31.9 L (35.3-44.9) % MCV 101.9 H (83.0-100.0) fL MCH 32.9 (28.0-33.3) pg MCHC 32.3 (31.6-35.5) g/dL RDW 16.8 H (11.5-14.5) % Plt Count 324 (140-400) K/mcL MPV 10.8 (9.4-12.4) fL Immature Gran % 0.9 (0-4) % Seg Neutrophils % 80.3 % Lymphocytes % 7.0 % Monocytes % 11.3 % Eosinophils % 0.1 % Basophils % 0.4 % Neutrophils # 6.0 (1.6-8.9) K/mcL Lymphocytes # 0.5 L (0.6-4.6) K/mcL Monocytes # 0.8 (0.0-1.3) K/mcL Eosinophils # 0.0 (0.0-0.6) K/mcL Basophils # 0.0 (0.0-0.2) K/mcL Sodium 135 L (136-145) mEq/L Potassium 3.4 L (3.5-5.1) mEq/L Chloride 103 (98-107) mEq/L Carbon Dioxide 20 L (23-29) mEq/L BUN 37 H (8-23) mg/dL Creatinine 1.85 H (0.60-1.20) mg/dL Est GFR ( Amer) 33 L (> 60) Est GFR (Non-Af Amer) 27 L (> 60) BUN/Creatinine Ratio 20 (6-26) Glucose 173 H (70-105) mg/dL Calculated Osmolality 293 (280-300) Calcium 8.3 L (8.6-10.3) mg/dL Total Bilirubin 0.8 (0.3-1.0) mg/dL AST 25 (13-39) Units/L ALT 14 (7-52) Units/L Alkaline Phosphatase 187 H (34-104) Units/L Troponin I 0.05 H* (< 0.04) ng/mL Serum Total Protein 5.6 L (6.4-8.9) g/dL Albumin 2.8 L (3.5-5.7) g/dL Globulin 2.8 (2.4-3.5) g/dL Albumin/Globulin Ratio 1.0 L (1.1-2.2) TSH 1.517 (0.340-5.600) mcIU/mL Attestation Statement - Attestation Attestation: I examined this patient and my medical decision-making was reviewed with the Resident Physician. I agree with the documented findings, disposition and joes tment plan as described except to the extent set forth below. Patient to the ED by EMS. Her niece was able to get her house today and she called 911 to bring her to the ED because she cannot take care of herself. Patient has home health aides during the week. She is weak and unable to ambulate. Patient states she has any and days. She is also complaining of buttock pain from sore. Patient is currently undergoing treatment for ovarian cancer. She is completely chemoradiation. Her niece is been tried to obtain a hospice consult. She is in no distress on examination. Lungs clear. Abdomen soft. She has noted to have 4+ pitting edema to bilateral lower extremities. She has some erythema around her rectum that appears consistent with candidiasis. Plan. Generalized weakness workup. Admission as patient is unable to provide for herself and is unsafe for discharge home. Patient with CARLOS EDUARDO. Significant edema of the lower extremities. We will give small fluid bolus. Admitted to medicine. Chest X-Ray 09/03/18 16:59 IMPRESSION: No acute process. D/ / Jadiel Jacobsen MD / Jadiel Jacobsen MD Interpreting Provider: Jadiel Jacobsen MD Head CT 09/03/18 16:59 IMPRESSION: No acute intracranial abnormality. D/ / 09/03/2018 17:39:57 Benito Jolly MD / zenaida Interpreting Provider: Benito Jolly MD
[2018-09-03 17:35] LABS: Basophils % 0.4 %; Eosinophils % 0.1 %; Hematocrit 31.9 % (35.3-44.9); Hemoglobin 10.3 g/dL (11.5-15.4); Immature Granulocytes % 0.9 % (0-4); Lymphocytes # 0.5 K/mcL (0.6-4.6); Mean Corpuscular HGB Conc 32.3 g/dL (31.6-35.5); Mean Corpuscular Hemoglobin 32.9 pg (28.0-33.3); Mean Corpuscular Volume 101.9 fL (83.0-100.0); Mean Platelet Volume 10.8 fL (9.4-12.4); Monocytes # 0.8 K/mcL (0.0-1.3); Monocytes % 11.3 %; Platelet Count 324 K/mcL (140-400); Red Blood Count 3.13 M/mcL (3.82-4.97); Red Cell Distribution Width 16.8 % (11.5-14.5); Segmented Neutrophils % 80.3 %
[2018-09-03 17:55] LABS: Albumin 2.8 g/dL (3.5-5.7); Bilirubin,Total 0.8 mg/dL (0.3-1.0); Calcium 8.3 mg/dL (8.6-10.3); Globulin 2.8 g/dL (2.4-3.5); Potassium 3.4 mEq/L (3.5-5.1); Total Protein 5.6 g/dL (6.4-8.9)
[2018-09-03] MEDS ORDERED: 0.9 % Sodium Chloride 500 ML IVC ONE (18:08)
[2018-09-03 18:10] LABS: Thyroid Stimulating Hormone 1.517 mcIU/mL (0.340-5.600)
[2018-09-03 18:11] LABS: Troponin I 0.05 ng/mL (< 0.04)
[2018-09-03] MEDS ORDERED: Nystatin POWDER 30 GM BOTTLE TP STA (18:23)
[2018-09-03] MEDS ORDERED: Aspirin 81 MG TAB.CHEW PO STA (18:36)
--- NOTE | 2018-09-03 18:36 | Emergency Department Note ---
Disposition Clinical Impression: Dehydration, CARLOS EDUARDO (acute kidney injury), Elevated troponin Disposition: Admitted As Inpatient Condition: Fair Referrals: Olga Gallego CNP [Primary Care Provider] - Forms: ED Satisfaction Letter, Work/School Release Time of Disposition: 18:41 General Adult HPI - General Chief complaint: ED General Medical Stated complaint: General Weakness Time Seen by Provider: 09/03/18 16:59 Source: EMS Mode of arrival: ambulatory Limitations: no limitations Nursing Notes Reviewed: Yes Vital Signs Reviewed: Yes - History of Present Illness HPI Narrative: Patient is a 72-year-old female with a past medical history of ovarian cancer, atrial fibrillation, CAD, diabetes, GERD, and hypertension presents emergency Department by squad actually members request. Patient lives at home with her older sister who is having a difficult time taking care of her on her own and they have been discussing the patient's need for placement. Patient is here because she feels generally ill she has weakness in bilateral lower extremities. States that she also concerned about a rash in her buttock's. This rash is been going on for couple weeks and is been getting worse and causing her pain. She denies any chest pain, shortness of breath, productive cough, flank pain, abdominal pain, urinary symptoms or focal neurological deficits. Pain Scale: 0 - Related Data Home Medications Medication Instructions Recorded Confirmed Insulin ASPART [Novolog Flexpen] 0 unit SQ TID PRN 06/01/16 07/16/18 Metformin HCl [Glucophage] 1,000 mg PO BID 06/01/16 07/16/18 Metoprolol [Lopressor] 25 mg PO BID 06/01/16 07/16/18 Nitroglycerin [Nitrostat] 0.4 mg SL Q5M PRN MDD X1DOSE CALL 06/01/16 07/16/18 911 Pravastatin Sodium [Pravachol] 40 mg PO HS 06/01/16 07/16/18 Lisinopril [Zestril] 10 mg PO DAILY 10/26/16 07/16/18 Calcium Carbonate/Vitamin D3 1 tab PO DAILY 04/19/18 07/16/18 [Calcium 500 + Vit D Caplet] Insulin Glargine,Hum.rec.anlog 25 unit SQ HS 04/19/18 07/16/18 [Basaglar Kwikpen U-100] Insulin Glargine,Hum.rec.anlog 35 unit SQ QAM 04/19/18 07/16/18 [David Morgan U-100] dilTIAZem HCl [Diltiazem 24Hr ER] 120 mg PO DAILY 04/19/18 07/16/18 Vitamin B Complex [B Complex] 1 tab PO DAILY 07/11/18 07/16/18 Previous Rx's Medication Instructions Recorded Amiodarone [Cordarone] 200 mg PO DAILY #0 07/14/18 Gabapentin [Neurontin] 200 mg PO TID #90 capsule 07/14/18 Polyethylene Glycol 3350 [MiraLAX] 17 gm PO DAILY PRN #30 powd.pack 07/14/18 Rivaroxaban [Xarelto] 20 mg PO DAILY #30 tablet 07/14/18 Sennosides/Docusate Sodium [Senna 1 each PO BID PRN #60 tablet 07/14/18 Plus] Allergies Allergy/AdvReac Type Severity Reaction Status Date / Time oxycodone [From OxyContin] AdvReac Severe Hallucinati Verified 09/03/18 16:59 ng All systems ED: reviewed and negative except as stated. Review of Systems: As Per HPI Constitutional: Denies: fever, chills Cardiovascular: Denies: chest pain, palpitations, dyspnea on exertion Respiratory: Denies: cough, dyspnea, wheezes Gastrointestinal: Denies: abdominal pain, nausea, vomiting Genitourinary: Denies: urgency, dysuria Musculoskeletal: Denies: back pain, neck pain Integumentary: Denies: rash, abrasion Neurological: Reports: weakness (Diffuse lower extremities.). Denies: headache, numbness, paresthesias, confusion Past Medical History - Past Medical History Attestation: Yes The following information was validated with the patient. Medical history: Reports: arthritis, atrial fibrillation, cancer, coronary artery disease, diabetes, GERD, hyperlipidemia, hypertension, osteoporosis, other Surgical history: Reports: cancer surgery, other, vascular surgery Psychiatric history: Reports: anxiety - Social History Smoking Status: Former smoker Smokeless Tobacco Status: No Alcohol use: Reports: none Drug use: Reports: none Physical Exam - General Limitations: no limitations General appearance: alert, in distress (Mild distress patient appears uncomfortable. She is able speak in full sentences.) - Head Head exam: atraumatic, normocephalic, normal inspection - Eye Eye exam: Present: normal appearance, PERRL, EOMI - ENT ENT exam: normal exam, normal oropharynx, mucous membranes dry - Neck Neck exam: Present: normal inspection, full ROM, trachea midline - Chest Chest inspection: Present: normal inspection, symmetric chest wall rise. Absent: tenderness - Respiratory Respiratory exam: Present: normal lung sounds bilaterally. Absent: respiratory distress, wheezes - Cardiovascular Cardiovascular exam: Present: regular rate, normal rhythm, normal heart sounds, +S1, +S2 - Abdominal Exam Abdominal exam: Present: soft, Non-Tender, normal bowel sounds - Extremities Exam Extremities exam: Present: normal inspection, full ROM, normal capillary refill. Absent: tenderness, pedal edema, joint swelling - Expanded Lower Extremity Exam Hip/Pelvis exam: Present: other (erythematous rash in between the gluteal fold of the buttocks. ) - Back Exam Back exam: Present: normal inspection, full ROM. Absent: tenderness, CVA tenderness (R), CVA tenderness (L) - Neurological Exam Neurological exam: Present: alert, oriented X3 - Psychiatric Psychiatric exam: Present: normal affect, normal mood - Skin Skin exam: Present: warm, dry, intact, normal color Course Course Narrative: Patient presents from home at the request of patient's family member states that she has been living for too long with the family members unable to take care of versus were about her condition. Patient herself mainly complains of weakness, rash. Her lab work was remarkable for signs of dehydration which included acute kidney injury as well as an elevated troponin. Her EKG was nonischemic the patient did not have chest pain. She was given a full dose of aspirin regardless. Discussed the patient's case with the hospitalist on-call and they agree to accept the patient. Vital Signs Temperature 98.7 F 09/03/18 16:56 Pulse Rate 60 09/03/18 16:56 Respiratory Rate 15 09/03/18 16:56 Blood Pressure 104/85 09/03/18 16:56 O2 Sat by Pulse Oximetry 100 09/03/18 16:56 Temperature 98.7 F 09/03/18 16:56 Pulse Rate 60 09/03/18 16:56 Respiratory Rate 15 09/03/18 16:56 Blood Pressure 104/85 09/03/18 16:56 O2 Sat by Pulse Oximetry 100 09/03/18 16:56 Oxygen Delivery Oxygen Delivery Room Air Medical Decision Making - Medical Records Medical records reviewed: Yes I reviewed the patient's medical records. - Lab Data Lab results reviewed: Yes I reviewed the patient's lab results. Result diagrams: 09/03/18 17:05 09/03/18 17:05 Lab Results 09/03/18 09/03/18 Range/Units 17:05 17:05 WBC 7.4 (4.3-11.1) K/mcL RBC 3.13 L (3.82-4.97) M/mcL Hgb 10.3 L (11.5-15.4) g/dL Hct 31.9 L (35.3-44.9) % MCV 101.9 H (83.0-100.0) fL MCH 32.9 (28.0-33.3) pg MCHC 32.3 (31.6-35.5) g/dL RDW 16.8 H (11.5-14.5) % Plt Count 324 (140-400) K/mcL MPV 10.8 (9.4-12.4) fL Immature Gran % 0.9 (0-4) % Seg Neutrophils % 80.3 % Lymphocytes % 7.0 % Monocytes % 11.3 % Eosinophils % 0.1 % Basophils % 0.4 % Neutrophils # 6.0 (1.6-8.9) K/mcL Lymphocytes # 0.5 L (0.6-4.6) K/mcL Monocytes # 0.8 (0.0-1.3) K/mcL Eosinophils # 0.0 (0.0-0.6) K/mcL Basophils # 0.0 (0.0-0.2) K/mcL Sodium 135 L (136-145) mEq/L Potassium 3.4 L (3.5-5.1) mEq/L Chloride 103 (98-107) mEq/L Carbon Dioxide 20 L (23-29) mEq/L BUN 37 H (8-23) mg/dL Creatinine 1.85 H (0.60-1.20) mg/dL Est GFR ( Amer) 33 L (> 60) Est GFR (Non-Af Amer) 27 L (> 60) BUN/Creatinine Ratio 20 (6-26) Glucose 173 H (70-105) mg/dL Calculated Osmolality 293 (280-300) Calcium 8.3 L (8.6-10.3) mg/dL Total Bilirubin 0.8 (0.3-1.0) mg/dL AST 25 (13-39) Units/L ALT 14 (7-52) Units/L Alkaline Phosphatase 187 H (34-104) Units/L Troponin I 0.05 H* (< 0.04) ng/mL Serum Total Protein 5.6 L (6.4-8.9) g/dL Albumin 2.8 L (3.5-5.7) g/dL Globulin 2.8 (2.4-3.5) g/dL Albumin/Globulin Ratio 1.0 L (1.1-2.2) TSH 1.517 (0.340-5.600) mcIU/mL - Radiology Data Radiology results reviewed: Yes I reviewed the patient's radiology results. Chest X-Ray 09/03/18 16:59 IMPRESSION: No acute process. D/ / Jadiel Jacobsen MD / Jadiel Jacobsen MD Interpreting Provider: Jadiel Jacobsen MD Head CT 09/03/18 16:59 IMPRESSION: No acute intracranial abnormality. D/ / 09/03/2018 17:39:57 Benito Jolly MD / zenaida Interpreting Provider: Benito Jolly MD - EKG Data EKG #1 EKG attestation: Yes I reviewed and interpreted this EKG. EKG results narrative: EKG done at 18:19 shows ectopic atrial rhythm at a rate of 119 bpm. Normal axis. Intervals within normal limits. No signs of ST elevation, ST depression or Q waves present. The rhythm is unchanged from old EKG done on July 162017.
[2018-09-03 18:57] LABS: Bilirubin,Urine Small (Negative); Blood,Urine Negative (Negative); Clarity,Urine Clear (Clear); Color,Urine Yellow (Yellow); Glucose,Urine (UA) Normal (Normal); Ketones,Urine Trace mg/dL (Negative); Leukocyte Esterase,Urine Negative (Negative); Nitrite,Urine Negative (Negative); Protein,Urine Negative (Neg-Trace); Specific Gravity,Urine 1.024 (1.010-1.025); Urobilinogen,Urine Normal (Normal)
[2018-09-03] MEDS ORDERED: Dextrose Gel 15 GM/37.5 ML TUBE PO PRN ×2 (20:45)
[2018-09-03] MEDS ORDERED: Naloxone 0.4 MG/ML INJ IVP PRN (20:45)
[2018-09-03] MEDS ORDERED: D5% in Water 1,000 ML IVC PRN (20:45)
[2018-09-03] MEDS ORDERED: *HR* Dextrose 50 % in Water (Syg) 50 ML SYRINGE IVP PRN (20:45)
--- NOTE | 2018-09-03 21:06 | Internal Med History&Physical ---
Date of Encounter: 09/03/18 Time of Encounter: 20:10 Internal Medicine - H&P: HPI Chief complaint: unable to care for self; dehydration Admitted From: Emergency Dept Plans for Post Hospital Care: Home History of present illness: Ms. Cyr is a 72 year old female who presents to the ER tonight for concerns of inability to care for herself. Her sister checks in on her and called the squad to bring her in to the ER today because patient was unable to ambulate in the house, was dehydrated, and was not eating. She lives alone and has her sister and family members check in on her frequently. Unfortunately, patient has been suffering from metastatic uterine cancer and has been having worsening pain, appetite loss, weakness, and failure to thrive. Workup in ER revealed patient to have acute kidney injury, signs of dehydration, and troponin elevation. Chest x-ray and CT of the head were negative. She was then admitted to the hospitalist service. Upon my assessment of the patient, she appears to be clinically dry, pale in complexion, weak, and is having significant pain to her sacrum and pelvis from her underlying cancer. As we rolled her from her ER cot to her hospital bed, she did have what appeared to be a stage 1 to 2 sacral ulcer. Patient admits that she has been unable to care for herself for the last several days. She denies any cough, fevers, chills, vomiting, diarrhea, chest pain, shortness breath, and/or abdominal pain. She has had decreased appetite, decreased fluid intake, and decreased urine output. She follows with gynecologic oncology at [facility] in [place]. She is due to follow-up soon for ongoing treatment recommendations. I discussed CODE STATUS with her, and she remains full code. Her sister remains her power of ip technology transactions attorney. Past Med Surg Social Fam HX - Past Medical History Attestation: Yes The following information was validated with the patient. Source: patient, old records reviewed Medical history: arthritis, atrial fibrillation, cancer, coronary artery disease, diabetes, hyperlipidemia, hypertension, malignancy Additional medical history: Endometrial CA Psychiatric history: no psych history - Past Surgical History Surgical History: cancer surgery, other, vascular surgery Additional surgical history: D&C, cancer surgery, heart surgery - Social History Smoking Status: Former smoker Smokeless Tobacco Status: No Alcohol use: none Drug use: none Current living situation: Home - Independent Activity Level: Mostly sedentary Recent Out of Country Travel Within the Last 8 Weeks: No - Family History Brother Hx Family Endocrine Disorder: Yes (DIABETES MELLITUS.) Mother Living Status: Hx Family Cardiac Disorders: Yes Hx Family Respiratory Disorders: Yes Hx Family Cancer: Yes Hx Family GI Disorders: No Hx Family Endocrine Disorder: Yes Hx Family Neuromuscular Disorders: No Hx Family Neurologic Disorders: No Hx Family HEENT Disorders: Yes Hx Family Autoimmune Disorders: No Internal Medicine - H&P: Meds Insulin ASPART [Novolog Flexpen] 0 unit SQ TID PRN 06/01/16 [History] Metformin HCl [Glucophage] 1,000 mg PO BID 06/01/16 [History] Metoprolol [Lopressor] 25 mg PO BID 06/01/16 [History] Nitroglycerin [Nitrostat] 0.4 mg SL Q5M PRN MDD [id number] CALL 911 06/01/16 [History] Pravastatin Sodium [Pravachol] 40 mg PO HS 06/01/16 [History] Calcium Carbonate/Vitamin D3 [Calcium 500 + Vit D Caplet] 1 tab PO DAILY 04/19/18 [History] Insulin Glargine,Hum.rec.anlog [Basaglar Kwikpen U-100] 25 unit SQ HS 04/19/18 [History] Insulin Glargine,Hum.rec.anlog [Basaglar Kwikpen U-100] 35 unit SQ QAM 04/19/18 [History] Vitamin B Complex [B Complex] 1 tab PO DAILY 07/11/18 [History] Amiodarone [Cordarone] 200 mg PO DAILY #0 07/14/18 [Rx] Rivaroxaban [Xarelto] 20 mg PO DAILY #30 tablet 07/14/18 [Rx] Acetaminophen [Tylenol] 650 mg PO Q4H PRN 09/03/18 [History] FentaNYL PATCH [Duragesic] 50 mcg TD Q72H 09/03/18 [History] Gabapentin [Neurontin] 100 mg PO TID 09/03/18 [History] Hydromorphone HCl [Dilaudid] 2 mg PO Q4H PRN 09/03/18 [History] Allergy/AdvReac Type Severity Reaction Status Date / Time oxycodone [From OxyContin] AdvReac Severe Hallucinati Verified 09/03/18 16:59 ng - Constitutional Constitutional: fatigue, malaise, weakness, no chills, no fever(s), no night sweats - EENT Eyes: no blurry vision, no change in vision Ears: no ear pain, no tinnitus Nose, mouth and throat: no nasal congestion, no sore throat - Cardiovascular Cardiovascular ROS IM: edema (BLE), no chest pain, no dyspnea, no dyspnea on exertion - Respiratory Respiratory: no cough, no hemoptysis, no chest congestion, no excessive phlegm production, no change in phlegm color - Gastrointestinal Gastrointestinal: early satiety, no abdominal pain, no diarrhea, no hematemesis, no hematochezia, no melena, no nausea, no vomiting Additional comments: poor oral intake - Genitourinary Genitourinary: no dysuria, no flank pain, no hematuria Additional comments: decreased urinary output - Musculoskeletal Musculoskeletal ROS IM: arthralgias Additional comments: sacral/pelvic pain -- chronic - Integumentary Integumentary IM: no rash, no jaundice - Neurological Neurological ROS: no dizziness, no focal weakness, no frequent falls, no headache(s) - Psychiatric Psychiatric: no anxiety, no depression - Endocrine Endocrine IM: no polydipsia, no polyuria - Allergic/Immunologic Allergic/Immunologic: no GI upset with certain foods - Constitutional Vitals: Temp Pulse Resp BP Pulse Ox 98.7 F 54 16 118/52 97 09/03/18 16:56 09/03/18 19:18 09/03/18 19:18 09/03/18 19:18 09/03/18 19:18 General appearance: Present: A&O X 3, answers questions appropriately Exam: weak, pale, dehydrated - Head Head exam: Present: atraumatic, normal inspection - Eye Eye exam: Present: EOMI, PERRL. Absent: scleral icterus Pupils: Present: normal accommodation - ENT ENT exam: Present: mucous membranes dry, normal exam, normal oropharynx - Neck Neck exam general surgery: Present: full ROM, supple. Absent: tenderness, nuchal rigidity, thyromegaly - Respiratory Respiratory exam: Present: CTAB. Absent: chest wall tenderness, rales, respiratory distress, rhonchi, wheezes - Cardiovascular Cardiovascular exam: Present: irregular rhythm, +S1, +S2, systolic murmur (grade 1). Absent: diastolic murmur - GI/Abdominal GI/Abdominal exam: Present: normal bowel sounds, soft, tenderness (suprapubic/pelvic), no peritoneal signs. Absent: guarding, mass, rebound - Back Exam Back exam: Present: normal inspection. Absent: CVA tenderness (L), CVA tenderness (R) Additional comments: stage 1-2 sacral decubitus with surrounding redness - Neurological Exam Neurological exam: Present: alert, CN II-XII intact, oriented X3, no focal deficits - Psychiatric Psychiatric exam: Present: normal affect, normal mood - Skin Skin exam: Present: dry, intact, pallor, warm Internal Med - H&P Results - Labs CBC & Chem 7: 09/03/18 17:05 09/03/18 17:05 Labs: Short CBC 09/03/18 Range/Units 17:05 WBC 7.4 (4.3-11.1) K/mcL Hgb 10.3 L (11.5-15.4) g/dL Hct 31.9 L (35.3-44.9) % Plt Count 324 (140-400) K/mcL Neutrophils # 6.0 (1.6-8.9) K/mcL BMP 09/03/18 17:05 Sodium 135 L Potassium 3.4 L Chloride 103 Carbon Dioxide 20 L BUN 37 H Creatinine 1.85 H Glucose 173 H Calcium 8.3 L Cardiac Enzymes 09/03/18 Range/Units 17:05 Troponin I 0.05 H* (< 0.04) ng/mL Liver Function 09/03/18 Range/Units 17:05 Total Bilirubin 0.8 (0.3-1.0) mg/dL AST 25 (13-39) Units/L ALT 14 (7-52) Units/L Alkaline Phosphatase 187 H (34-104) Units/L Albumin 2.8 L (3.5-5.7) g/dL Urine 09/03/18 Range/Units 18:38 Urine Color Yellow (Yellow) Urine Clarity Clear (Clear) Urine pH 5.0 (5.0-8.0) pH Units Ur Specific [place] 1.024 (1.010-1.025) Urine Protein Negative (Neg-Trace) mg/dL Urine Glucose (UA) Normal (Normal) mg/dL - EKG Data -: EKG Interpreted by Myself - EKG Data Prior EKG available for review: no EKG comments: 09/03/18 21:14 Atrial fibrillation - Impressions ITS Impressions Chest X-Ray 09/03/18 16:59 IMPRESSION: No acute process. D/ / Jadiel Jacobsen MD / Jadiel Jacobsen MD Interpreting Provider: Jadiel Jacobsen MD Head CT 09/03/18 16:59 IMPRESSION: No acute intracranial abnormality. D/ / 09/03/2018 17:39:57 Benito Jolly MD / zenaida Interpreting Provider: Benito Jolly MD - Diagnostic Studies Chest x-ray Status: image reviewed by me (negative) - Assessment and plan (1) Acute kidney failure Current Visit: Yes Status: Acute Assessment and plan: 1. Patient appears to be intravascularly dry. 2. Will hydrate with IVF and oral fluids. 3. Monitor renal function; consult nephrology if fails to improve. 4. Will order renal ultrasound to rule out obstruction given uterine cancer with metastases. Qualifiers: Acute renal failure type: unspecified Qualified Code(s): N17.9 - Acute kidney failure, unspecified (2) Failure to thrive Current Visit: Yes Status: Acute Assessment and plan: 1. Consult PT/OT/social sciences professor. 2. Patient remains full code and plans to follow up with her oncologist soon to discuss further treatment options. 3. She may benefit from palliative care consult. 4. Consider nutrition consult. Qualifiers: Failure to thrive age range: in adult Qualified Code(s): R62.7 - Adult failure to thrive (3) Atrial fibrillation Current Visit: Yes Status: Chronic Assessment and plan: 1. Continue home meds as appropriate. 2. Decrease Xarelto dose as discussed with pharmacy. 3. Monitor on telemetry. 4. Trend troponins. Patient denies chest pain. Qualifiers: Atrial fibrillation type: paroxysmal Qualified Code(s): I48.0 - Paroxysmal atrial fibrillation (4) Endometrial adenocarcinoma Current Visit: Yes Status: Chronic Assessment and plan: 1. May need inpatient consult from HEM/ONC for guidance of care. 2. Patient follows with [facility]/ONC in [place] regularly. (5) Sacral decubitus ulcer Current Visit: Yes Status: Acute Assessment and plan: 1. Consult wound care. Qualifiers: Pressure injury stage: stage 2 Qualified Code(s): L89.152 - Pressure ulcer of sacral region, stage 2 (6) DVT prophylaxis Current Visit: Yes Status: Acute Assessment and plan: 1. Continue Xarelto.
[2018-09-03] MEDS ORDERED: Insulin DETEMIR 100 UNIT/ML X5UNITS SQ SCH (21:15)
[2018-09-03] MEDS: Gabapentin 100 MG CAPSULE PO SCH (21:31)
[2018-09-03] MEDS: 0.9 % Sodium Chloride 1,000 ML IVC SCH (21:34)
[2018-09-03] MEDS: *HR* HYDROmorphone 2 MG TABLET PO PRN (21:34)
[2018-09-04 06:55] LABS: Basophils % 0.3 %; Eosinophils # 0.1 K/mcL (0.0-0.6); Eosinophils % 1.4 %; Hematocrit 27.6 % (35.3-44.9); Immature Granulocytes % 0.9 % (0-4); Lymphocytes # 0.4 K/mcL (0.6-4.6); Lymphocytes % 7.2 %; Mean Corpuscular HGB Conc 31.2 g/dL (31.6-35.5); Mean Corpuscular Hemoglobin 32.2 pg (28.0-33.3); Mean Corpuscular Volume 103.4 fL (83.0-100.0); Mean Platelet Volume 11.2 fL (9.4-12.4); Monocytes # 0.7 K/mcL (0.0-1.3); Monocytes % 11.4 %; Neutrophils # 4.5 K/mcL (1.6-8.9); Platelet Count 286 K/mcL (140-400); Red Blood Count 2.67 M/mcL (3.82-4.97); Red Cell Distribution Width 17.2 % (11.5-14.5); Segmented Neutrophils % 78.8 %
[2018-09-04 06:59] LABS: Hemoglobin 8.6 g/dL (11.5-15.4); INR 1.6; Prothrombin Time 17.6 Seconds (9.4-12.1)
[2018-09-04 07:01] LABS: Activated Partial Thrombo Time 38.3 Seconds (26.0-36.0)
[2018-09-04 07:17] LABS: Albumin 2.3 g/dL (3.5-5.7); Bilirubin,Total 0.7 mg/dL (0.3-1.0); Calcium 7.7 mg/dL (8.6-10.3); Globulin 2.3 g/dL (2.4-3.5); Magnesium 1.1 mg/dL (1.6-2.6); Potassium 3.7 mEq/L (3.5-5.1); Total Protein 4.6 g/dL (6.4-8.9)
[2018-09-04] MEDS: *HR* HYDROmorphone 2 MG TABLET PO PRN ×3 (07:24→17:37)
[2018-09-04] MEDS ORDERED: NON-FORMULARY MEDICATION 1 EACH EACH (Insulin Glargine,Hum.Rec.Anlog [Basaglar Kwikpen U-1 SQ SCH (08:00)
[2018-09-04] MEDS: Insulin LISPRO 300 UNITS/3 ML VIAL SQ SCH ×3 (08:05→17:28)
[2018-09-04] MEDS: 0.9 % Sodium Chloride 1,000 ML IVC SCH (08:29)
[2018-09-04] MEDS: Insulin DETEMIR 100 UNIT/ML X5UNITS SQ SCH ×2 (09:45→22:07)
[2018-09-04] MEDS: Gabapentin 100 MG CAPSULE PO SCH ×4 (09:45→22:07)
[2018-09-04] MEDS: *HR* Amiodarone 200 MG TABLET PO SCH (09:45)
[2018-09-04] MEDS: *HR* Rivaroxaban 15 MG TABLET PO SCH (09:45)
[2018-09-04] MEDS: Calcium 500 + Vit D PO SCH (09:51)
--- NOTE | 2018-09-04 10:13 | Internal Med Progress Note ---
Hospitalist Progress Note - Encounter Date of Encounter: 09/04/18 Time of Encounter: 10:13 - Subjective Interval History: Pt states she is having pain in sacral region. She also report some nausea but no vomiting. She denies fever or chills. She denies chest pain pain or SOB. - Exam Vitals: Temp Pulse Resp BP Pulse Ox 98.6 F 58 16 110/59 98 09/04/18 07:33 09/04/18 07:33 09/04/18 07:33 09/04/18 07:33 09/04/18 07:33 Exam: General appearance: Present: A&O X 3, answers questions appropriately Exam: weak, pale, dehydrated - Head Head exam: Present: atraumatic, normal inspection - Eye Eye exam: Present: EOMI, PERRL. Absent: scleral icterus Pupils: Present: normal accommodation - ENT ENT exam: Present: mucous membranes dry, normal exam, normal oropharynx - Neck Neck exam general surgery: Present: full ROM, supple. Absent: tenderness, nuchal rigidity, thyromegaly - Respiratory Respiratory exam: Present: CTAB. Absent: chest wall tenderness, rales, respiratory distress, rhonchi, wheezes - Cardiovascular Cardiovascular exam: Present: irregular rhythm, +S1, +S2, systolic murmur (grade 1). Absent: diastolic murmur - GI/Abdominal GI/Abdominal exam: Present: normal bowel sounds, soft, tenderness (suprap ubic/pelvic), no peritoneal signs. Absent: guarding, mass, rebound - Back Exam Back exam: Present: normal inspection. Absent: CVA tenderness (L), CVA tenderness (R) Additional comments: stage 1-2 sacral decubitus with surrounding redness - Neurological Exam Neurological exam: Present: alert, CN II-XII intact, oriented X3, no focal deficits - Psychiatric Psychiatric exam: Present: normal affect, normal mood - Skin Skin exam: Present: dry, intact, pallor, warm - Assessment and Plan (1) Atrial fibrillation Current Visit: Yes Status: Chronic Assessment and Plan: 1. Continue home meds as appropriate. 2. Xarelto dose adjusted per pharmacy recommendation. 3. Monitor on telemetry. 4. Troponins 0.05---0.04. Patient denies chest pain. (2) Endometrial adenocarcinoma Current Visit: Yes Status: Chronic Assessment and Plan: 1. May need inpatient consult from HEM/ONC for guidance of care. 2. Patient follows with [facility] in [place] regularly. Will continue with pain management (3) Acute kidney failure Current Visit: Yes Status: Acute Assessment and Plan: 1. Patient intravascularly dry. 2. Given some IVF and encouraged to drink oral fluids. 3. Will continue to monitor renal function and will consult nephrology if fails to improve. 4. Renal ultrasound ordered to rule out obstruction given uterine cancer with metastases. (4) Failure to thrive Current Visit: Yes Status: Acute Assessment and Plan: 1. Consult PT/OT/psychologist social. 2. Patient remains full code and plans to follow up with her oncologist soon to discuss further treatment options. 3. Will discuss palliative care consult with pt and or family, if available on Wednesday. 4. Nutrition consulted. (5) Sacral decubitus ulcer Current Visit: Yes Status: Acute Assessment and Plan: 1. Consulting wound care. DVT Prophylaxis: Xarelto - Summary of Assessment and Plan Summary of Assessment and Plan: History of present illness: Dr. Flores Ms. Cyr is a 72 year old female who presents to the ER [facility] for concerns of inability to care for herself. Her sister checks in on her and called the squad to bring her in to the ER today because patient was unable to ambulate in the house, was dehydrated, and was not eating. She lives alone and has her sister and family members check in on her frequently. Unfortunately, patient has been suffering from metastatic uterine cancer and has been having worsening pain, appetite loss, weakness, and failure to thrive. Workup in ER revealed patient to have acute kidney injury, signs of dehydration, and troponin elevat ion. Chest x-ray and CT of the head were negative. She was then admitted to the hospitalist service. Upon my assessment of the patient, she appears to be clinically dry, pale in complexion, weak, and is having significant pain to her sacrum and pelvis from her underlying cancer. As we rolled her from her ER cot to her hospital bed, she did have what appeared to be a stage 1 to 2 sacral ulcer. Patient admits that she has been unable to care for herself for the last several days. She denies any cough, fevers, chills, vomiting, diarrhea, chest pain, shortness breath, and/or abdominal pain. She has had decreased appetite, decreased fluid intake, and decreased urine output. She follows with gynecologic oncology at [facility] in [place]. She is due to follow-up soon for ongoing treatment recommendations. I discussed CODE STATUS with her, and she remains full code. Her sister remains her power of criminal attorney. - Time Spent with Patient Total time spent is greater than 50% in coordination of care (as documented) at patient's floor/unit and/or counseling patient: less than 15 minutes Plan of Care Discussed with: patient Internal Medicine: Result - Labs CBC & Chem 7: 09/04/18 05:31 09/04/18 05:31 Labs: Short CBC 09/03/18 09/04/18 Range/Units 17:05 05:31 WBC 7.4 5.7 (4.3-11.1) K/mcL Hgb 10.3 L 8.6 L D (11.5-15.4) g/dL Hct 31.9 L 27.6 L (35.3-44.9) % Plt Count 324 286 (140-400) K/mcL Neutrophils # 6.0 4.5 (1.6-8.9) K/mcL BMP 09/03/18 09/04/18 17:05 05:31 Sodium 135 L 142 Potassium 3.4 L 3.7 Chloride 103 109 H Carbon Dioxide 20 L 20 L BUN 37 H 32 H Creatinine 1.85 H 1.32 H Glucose 173 H 95 Calcium 8.3 L 7.7 L Cardiac Enzymes 09/03/18 09/03/18 09/04/18 Range/Units 17:05 22:46 05:31 Troponin I 0.05 H* 0.04 H* 0.04 H* (< 0.04) ng/mL Liver Function 09/03/18 09/04/18 Range/Units 17:05 05:31 Total Bilirubin 0.8 0.7 (0.3-1.0) mg/dL AST 25 23 (13-39) Units/L ALT 14 12 (7-52) Units/L Alkaline Phosphatase 187 H 160 H (34-104) Units/L Albumin 2.8 L 2.3 L (3.5-5.7) g/dL Urine 09/03/18 Range/Units 18:38 Urine Color Yellow (Yellow) Urine Clarity Clear (Clear) Urine pH 5.0 (5.0-8.0) pH Units Ur Specific [place] 1.024 (1.010-1.025) Urine Protein Negative (Neg-Trace) mg/dL Urine Glucose (UA) Normal (Normal) mg/dL - ABG Interpretation ABG results: PT/INR, D-dimer PT 17.6 Seconds (9.4-12.1) H 09/04/18 05:31 - Impressions Impressions Chest X-Ray 09/03/18 16:59 IMPRESSION: No acute process. D/ / Jadiel Jacobsen MD / Jadiel Jacobsen MD Interpreting Provider: Jadiel Jacobsen MD Head CT 09/03/18 16:59 IMPRESSION: No acute intracranial abnormality. D/ / 09/03/2018 17:39:57 Benito Jolly MD / zenaida Interpreting Provider: Benito Jolly MD Consult Discharge Plan - Plan Referrals: Olga Gallego, [facility] [Primary Care Provider] - (web request sent on 09/04/18) __ (1) Atrial fibrillation Qualifiers: Atrial fibrillation type: paroxysmal Qualified Code(s): I48.0 - Paroxysmal atrial fibrillation (3) Acute kidney failure Qualifiers: Acute renal failure type: unspecified Qualified Code(s): N17.9 - Acute kidney failure, unspecified (4) Failure to thrive Qualifiers: Failure to thrive age range: in adult Qualified Code(s): R62.7 - Adult failure to thrive (5) Sacral decubitus ulcer Qualifiers: Pressure injury stage: stage 2 Qualified Code(s): L89.152 - Pressure ulcer of sacral region, stage 2
[2018-09-04] MEDS ORDERED: *HR* FentaNYL PATCH 25 MCG PATCH TD SCH (10:30)
[2018-09-04] MEDS: Acetaminophen 325 MG TABLET PO PRN (12:33)
[2018-09-04] MEDS ORDERED: Acetaminophen IV 1,000 MG/100 ML INFUS..BTL IVPB ONE (20:23)
[2018-09-05] MEDS: Insulin LISPRO 300 UNITS/3 ML VIAL SQ SCH ×3 (07:49→16:23)
[2018-09-05] MEDS: Insulin DETEMIR 100 UNIT/ML X5UNITS SQ SCH ×2 (07:50→21:57)
[2018-09-05] MEDS: Cholecalciferol (D-3) 1,000 UNIT TABLET PO SCH (08:00)
[2018-09-05] MEDS: *HR* Amiodarone 200 MG TABLET PO SCH (08:01)
[2018-09-05] MEDS: *HR* Rivaroxaban 15 MG TABLET PO SCH (08:02)
[2018-09-05] MEDS: Calcium 500 + Vit D PO SCH (08:02)
[2018-09-05] MEDS: Gabapentin 100 MG CAPSULE PO SCH ×3 (08:02→21:57)
[2018-09-05] MEDS: Acetaminophen 325 MG TABLET PO PRN (12:43)
--- NOTE | 2018-09-05 15:40 | Internal Med Progress Note ---
Hospitalist Progress Note - Encounter Date of Encounter: 09/05/18 Time of Encounter: 15:37 - Subjective Interval History: Pt states she is having pain in sacral region. She also reports some nausea but no vomiting. She denies fever or chills. She denies chest pain pain or SOB. niece and sister both report that she has not been eating and her condition has gradually declined. Family requesting palliative/hospice consult and planing to have pt discharged to [place]. Consulted palliative care to see. - Exam Vitals: Temp Pulse Resp BP Pulse Ox 98.9 F 80 18 132/64 98 09/05/18 11:45 09/05/18 11:45 09/05/18 11:45 09/05/18 11:45 09/05/18 11:45 Exam: General appearance: Present: A&O X 3, answers questions appropriately Exam: weak, pale, dehydrated - Head Head exam: Present: atraumatic, normal inspection - Eye Eye exam: Present: EOMI, PERRL. Absent: scleral icterus Pupils: Present: normal accommodation - ENT ENT exam: Present: mucous membranes dry, normal exam, normal oropharynx - Neck Neck exam general surgery: Present: full ROM, supple. Absent: tenderness, nuchal rigidity, thyromegaly - Respiratory Respiratory exam: Present: CTAB. Absent: chest wall tenderness, rales, respiratory distress, rhonchi, wheezes - Cardiovascular Cardiovascular exam: Present: irregular rhythm, +S1, +S2, systolic murmur (grade 1). Absent: diastolic murmur - GI/Abdominal GI/Abdominal exam: Present: normal bowel sounds, soft, tenderness (suprapubic/pelvic), no peritoneal signs. Absent: guarding, mass, rebound - Back Exam Back exam: Present: normal inspection. Absent: CVA tenderness (L), CVA tenderness (R) Additional comments: stage 1-2 sacral decubitus with surrounding redness - Neurological Exam Neurological exam: Present: alert, CN II-XII intact, oriented X3, no focal deficits - Psychiatric Psychiatric exam: Present: normal affect, normal mood - Skin Skin exam: Present: dry, intact, pallor, warm - Assessment and Plan (1) Atrial fibrillation Current Visit: Yes Status: Chronic Assessment and Plan: 1. Continue home meds as appropriate. 2. Xarelto dose adjusted per pharmacy recommendation. 3. Monitor on telemetry. 4. Troponins 0.05---0.04. Patient denies chest pain. (2) Endometrial adenocarcinoma Current Visit: Yes Status: Chronic Assessment and Plan: 1. Family requesting palliative care consult. 2. Patient follows with [facility] in [place] regularly. Will continue with pain management (3) Acute kidney failure Current Visit: Yes Status: Acute Assessment and Plan: 1. Patient intravascularly dry. 2. Given some IVF and encouraged to drink oral fluids. 3. Will continue to monitor renal function and will consult nephrology if fails to improve. 4. Renal ultrasound ordered to rule out obstruction given uterine cancer with metastases and report pending. (4) Failure to thrive Current Visit: Yes Status: Acute Assessment and Plan: 1. Consult PT/OT/geriatric social work professor. 2. Patient remains full code. 3. Family requesting palliative care consult. 4. Nutrition consulted. (5) Sacral decubitus ulcer Current Visit: Yes Status: Acute Assessment and Plan: 1. Consulting wound care. DVT Prophylaxis: Xarelto - Summary of Assessment and Plan Summary of Assessment and Plan: History of present illness: Dr. Flores Ms. Cyr is a 72 year old female who presents to the ER [facility] for concerns of inability to care for herself. Her sister checks in on her and called the squad to bring her in to the ER today because patient was unable to ambulate in the house, was dehydrated, and was not eating. She lives alone and has her sister and family members check in on her frequently. Unfortunately, patient has been suffering from metastatic uterine cancer and has been having worsening pain, appetite loss, weakness, and failure to thrive. Workup in ER revealed patient to have acute kidney injury, signs of dehydration, and troponin elevation. Chest x-ray and CT of the head were negative. She was then admitted to the hospitalist service. Upon my assessment of the patient, she appears to be clinically dry, pale in complexion, weak, and is having significant pain to her sacrum and pelvis from her underlying cancer. As we rolled her from her ER cot to her hospital bed, she did have what appeared to be a stage 1 to 2 sacral ulcer. Patient admits that she has been unable to care for herself for the last several days. She denies any cough, fevers, chills, vomiting, diarrhea, chest pain, shortness breath, and/or abdominal pain. She has had decreased appetite, decreased fluid intake, and decreased urine output. She follows with gynecologic oncology at [facility] in [place]. She is due to follow-up soon for on going treatment recommendations. I discussed CODE STATUS with her, and she remains full code. Her sister remains her power of employment attorney. - Time Spent with Patient Total time spent is greater than 50% in coordination of care (as documented) at patient's floor/unit and/or counseling patient: less than 15 minutes Plan of Care Discussed with: patient Internal Medicine: Result - Labs CBC & Chem 7: 09/04/18 05:31 09/04/18 05:31 - ABG Interpretation ABG results: PT/INR, D-dimer PT 17.6 Seconds (9.4-12.1) H 09/04/18 05:31 - Impressions Impressions Echocardiogram 09/05/18 20:45 Impressions: LVEF 65%. Moderate left ventricular diastolic dysfunction. Normal right ventricular structure and function. Moderate, turbulent aortic regurgitation possibly underestimated. Mild-moderate aortic stenosis. Mild-moderate mitral regurgitation. Mild tricuspid regurgitation. Borderline pulmonary hypertension. Left Ventricular Wall Motion: Rest Echo Findings All wall segments showed normal motion. Findings: Study Quality * Technically adequate exam. ECG Findings * Sinus rhythm with ectopy. Left Ventricle * LVEF 65%. * Moderate left ventricular diastolic dysfunction. * Normal LV chamber size, wall thickness and function. Right Ventricle * Normal right ventricular structure and function. Left Atrium * Moderately dilated left atrium. Right Atrium * Normal right atrial size. Aortic Valve * Aortic valve not well visualized. * Moderate, turbulent aortic regurgitation. * Mild-moderate aortic stenosis. Mitral Valve * No mitral stenosis. * Mild mitral annular calcification * Mild-moderate mitral regurgitation. * Normal mitral valve structure. Tricuspid Valve * Tricuspid valve not well visualized. * Mild tricuspid regurgitation. Pulmonic Valve * Pulmonic valve is not well visualized. * No pulmonic stenosis. * No pulmonic regurgitation. Pulmonary Artery * Pulmonary artery not well visualized. Aorta * Normally sized aortic root. Pericardium * There is no pericardial effusion present. Interatrial Septum * Interatrial septum not well evaluated. IVC * The IVC is not well evaluated. Consult Discharge Plan - Plan Referrals: Olga Gallego CNP [Primary Care Provider] - 09/12/18 1:00 pm (web request sent on 09/04/18) (1) Atrial fibrillation Qualifiers: Atrial fibrillation type: paroxysmal Qualified Code(s): I48.0 - Paroxysmal atrial fibrillation (3) Acute kidney failure Qualifiers: Acute renal failure type: unspecified Qualified Code(s): N17.9 - Acute kidney failure, unspecified (4) Failure to thrive Qualifiers: Failure to thrive age range: in adult Qualified Code(s): R62.7 - Adult failure to thrive (5) Sacral decubitus ulcer Qualifiers: Pressure injury stage: stage 2 Qualified Code(s): L89.152 - Pressure ulcer of sacral region, stage 2
--- NOTE | 2018-09-05 16:21 | Palliative - Consult Note ---
Date of Encounter: 09/05/18 Time of Encounter: 16:15 - Assessment and Plan (1) Cancer related pain Current Visit: Yes Status: Acute Assessment and plan: Patient currently has Fentanyl patch in place at 25 mcg. This may need incr eased to 50mcg as was apparently her home dose, however, not having pain at this time and she has not utilized her Hydromorphone for breakthrough in almost 20 hours. Continued with GAbapentin TID. Will re-eval in am. (2) Generalized weakness Current Visit: No Status: Acute Assessment and plan: PT/OT consult ordered. (3) Advanced care planning/counseling discussion Current Visit: No Status: Acute Assessment and plan: Difficult social situation as pt demanding to go home, however, no caregivers available, and sister unable to assist with her moving at home as she is having increased weakness. Niece Alexei at bedside, speaking with pt firmly that she will have to go to ECF. Patient very emotional, crying and angry, but ultimately states, she will go if they promise her to "not let her home go". Patient has been to multiple ECF's with negative experiences, and only will agree to [facility] as of now. I spoke with SW, who will be contacting them for bed availability and will f/u with pt/family tomorrow. Also addressed code status at length again. Patient has decided she does not want heroic measures, resuscitation, or placed on life support. DNRCC ordered. Family aware and in total agreement with the code status change. Will f/u in am. (4) Sacral decubitus ulcer Current Visit: Yes Status: Acute Qualifiers: Pressure injury stage: stage 2 Qualified Code(s): L89.152 - Pressure ulcer of sacral region, stage 2 Palliative-CN HPI - Data of Consult Consult date: 09/05/18 Requesting Physician: Onel Griffin MD Primary Care Provider: Olga Gallego CNP - Consult Narrative Palliative Care/Comfort Measures: Palliative care History of present illness: Ms. Cyr is a 72 year old female Known to the palliative care team from a previous visit in June, who was brought to ER via EMS when she did not respond to multiple phone calls, and family found her unable to ambulate and wasn't eating. She lives alone - has sister, friend, and and niece that check on her. She has history of metastatic uterine cancer, and has intermittent bouts of uncontrollable pain, decreased appetite, and increasing weakness. Labs demonstrated acute kidney injury, dehydration, and elevated troponins. Her cancer has been followed in [place]. Upon my visit, patient is awake, alert and oriented with family at bedside. States that she is not having any pain at this time, and "feels fine". Denies nausea/anxiety/constipation/shortness of breath. She is arguing with family at my visit, Demands that she can go back home and care for herself, while family at bedside states she cannot. . CC: Onel Griffin MD - Time Spent with Patient Time: Total time spent is greater than 50% in coordination of care (as documented) at patient's floor/unit and/or counseling patient: Time with patient: 60 minutes Past Med Surg Social Fam HX - Past Medical History Medical history: arthritis, atrial fibrillation, cancer, coronary artery disease, diabetes, hyperlipidemia, hypertension, malignancy Additional medical history: Endometrial CA Psychiatric history: no psych history - Past Surgical History Surgical History: cancer surgery, other, vascular surgery Additional surgical history: D&C, cancer surgery, heart surgery - Social History Smoking Status: Former smoker Smokeless Tobacco Status: No Alcohol use: none Drug use: none - Family History Brother Hx Family Endocrine Disorder: Yes (DIABETES MELLITUS.) Mother Living Status: Hx Family Cardiac Disorders: Yes Hx Family Respiratory Disorders: Yes Hx Family Cancer: Yes Hx Family GI Disorders: No Hx Family Endocrine Disorder: Yes Hx Family Neuromuscular Disorders: No Hx Family Neurologic Disorders: No Hx Family HEENT Disorders: Yes Hx Family Autoimmune Disorders: No Medications and Allergies Insulin ASPART [Novolog Flexpen] 0 unit SQ TID PRN 06/01/16 [History] Metformin HCl [Glucophage] 1,000 mg PO BID 06/01/16 [History] Metoprolol [Lopressor] 25 mg PO BID 06/01/16 [History] Nitroglycerin [Nitrostat] 0.4 mg SL Q5M PRN MDD [id number] CALL 911 06/01/16 [History] Pravastatin Sodium [Pravachol] 40 mg PO HS 06/01/16 [History] Calcium Carbonate/Vitamin D3 [Calcium 500 + Vit D Caplet] 1 tab PO DAILY 04/19/18 [History] Insulin Glargine,Hum.rec.anlog [Basaglar Kwikpen U-100] 25 unit SQ HS 04/19/18 [History] Insulin Glargine,Hum.rec.anlog [Basaglar Kwikpen U-100] 35 unit SQ QAM 04/19/18 [History] Vitamin B Complex [B Complex] 1 tab PO DAILY 07/11/18 [History] Amiodarone [Cordarone] 200 mg PO DAILY #0 07/14/18 [Rx] Rivaroxaban [Xarelto] 20 mg PO DAILY #30 tablet 07/14/18 [Rx] Acetaminophen [Tylenol] 650 mg PO Q4H PRN 09/03/18 [History] FentaNYL PATCH [Duragesic] 50 mcg TD Q72H 09/03/18 [History] Gabapentin [Neurontin] 100 mg PO TID 09/03/18 [History] Hydromorphone HCl [Dilaudid] 2 mg PO Q4H PRN 09/03/18 [History] Allergy/AdvReac Type Severity Reaction Status Date / Time oxycodone [From OxyContin] AdvReac Severe Hallucinati Verified 09/03/18 16:59 ng All systems: reviewed and no additional remarkable complaints except as stated (intermittent RLP pain radiation to back and hip, decreased appetite, lower extremity swelling, weakness) Palliative Care-Exam - Constitutional Vitals: Temp Pulse Resp BP Pulse Ox 98.9 F 80 18 132/64 98 09/05/18 11:45 09/05/18 11:45 09/05/18 11:45 09/05/18 11:45 09/05/18 11:45 General appearance: Present: no acute distress - Head Head Exam: Present: normal inspection, normocephalic - Eye Eye exam: Present: normal appearance, PERRL - Respiratory Respiratory exam: Present: decreased breath sounds, CTAB - Cardiovascular Cardiovascular exam: Present: +S1, +S2 - GI/Abdominal Exam GI/Abdominal exam: Present: distended, normal bowel sounds, soft - Extremities Exam Additional comments: 2+ edema bilateral lower extremities - Neurological Exam Neurological exam: Present: alert, oriented X3, strengths equal and symetr throughout - Skin Skin exam: Present: dry, pallor, warm Internal Medicine - CN: Reslt - Labs CBC & Chem 7: 09/04/18 05:31 09/04/18 05:31 - ABG Interpretation ABG results: PT/INR, D-dimer PT 17.6 Seconds (9.4-12.1) H 09/04/18 05:31 - Impressions Impressions Retroperitoneum Ultrasound 09/05/18 13:00 IMPRESSION: Unremarkable ultrasound of the kidneys and urinary bladder. D/ / Darryl Salvador MD / Darryl Salvador MD Interpreting Provider: Darryl Salvador MD Echocardiogram 09/05/18 20:45 Impressions: LVEF 65%. Moderate left ventricular diastolic dysfunction. Normal right ventricular structure and function. Moderate, turbulent aortic regurgitation possibly underestimated. Mild-moderate aortic stenosis. Mild-moderate mitral regurgitation. Mild tricuspid regurgitation. Borderline pulmonary hypertension. Left Ventricular Wall Motion: Rest Echo Findings All wall segments showed normal motion. Findings: Study Quality * Technically adequate exam. ECG Findings * Sinus rhythm with ectopy. Left Ventricle * LVEF 65%. * Moderate left ventricular diastolic dysfunction. * Normal LV chamber size, wall thickness and function. Right Ventricle * Normal right ventricular structure and function. Left Atrium * Moderately dilated left atrium. Right Atrium * Normal right atrial size. Aortic Valve * Aortic valve not well visualized. * Moderate, turbulent aortic regurgitation. * Mild-moderate aortic stenosis. Mitral Valve * No mitral stenosis. * Mild mitral annular calcification * Mild-moderate mitral regurgitation. * Normal mitral valve structure. Tricuspid Valve * Tricuspid valve not well visualized. * Mild tricuspid regurgitation. Pulmonic Valve * Pulmonic valve is not well visualized. * No pulmonic stenosis. * No pulmonic regurgitation. Pulmonary Artery * Pulmonary artery not well visualized. Aorta * Normally sized aortic root. Pericardium * There is no pericardial effusion present. Interatrial Septum * Interatrial septum not well evaluated. IVC * The IVC is not well evaluated. Consult Discharge Plan - Plan Referrals: Olga Gallego CNP [Primary Care Provider] - 09/12/18 1:00 pm (web request sent on 09/04/18) Palliative Quality Palliative Quality: Screen for Code Status: Yes, Screen for Goals of Care: Yes, Screen for Pain: Yes, If Pain Regimen Started, Initiate Bowel Regimen: Yes, Screen for Nausea/Vomitting: Yes Code Status: 09/03/18 20:45 Resuscitation Status: Active [RES] Routine Comment: Resuscitation Status: Full Code 09/05/18 16:12 DNR [Resuscitation Status: Active] [RES] Routine Comment: Resuscitation Status: DNR-Comfort Care
--- NOTE | 2018-09-05 20:00 | Electrocardiograph Report ---
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
[2018-09-06] MEDS: Insulin LISPRO 300 UNITS/3 ML VIAL SQ SCH ×3 (07:18→17:07)
[2018-09-06] MEDS: Acetaminophen 325 MG TABLET PO PRN (08:35)
[2018-09-06] MEDS: Cholecalciferol (D-3) 1,000 UNIT TABLET PO SCH (08:35)
[2018-09-06] MEDS: Gabapentin 100 MG CAPSULE PO SCH ×3 (08:35→23:16)
[2018-09-06] MEDS: *HR* Amiodarone 200 MG TABLET PO SCH (08:35)
[2018-09-06] MEDS: Insulin DETEMIR 100 UNIT/ML X5UNITS SQ SCH ×2 (08:35→23:16)
[2018-09-06] MEDS: *HR* Rivaroxaban 15 MG TABLET PO SCH (08:35)
--- NOTE | 2018-09-06 10:21 | Palliative Progress Note ---
Date of Encounter: 09/06/18 Time of Encounter: 10:10 - Assessment and plan (1) Cancer related pain Current Visit: Yes Status: Acute Assessment and plan: Will increase Fentanyl patch to 50mcg as this is what she was on at home, and continue Hydromorphone tabs for breakthrough PRN. Monitor and titrate as needed. (2) Generalized weakness Current Visit: No Status: Acute Assessment and plan: Awaiting PT/OT consult (3) Advanced care planning/counseling discussion Current Visit: No Status: Acute Assessment and plan: D/W [facility] regarding ECF. [facility] may have bed tomorrow - awaiting PT/OT eval. Did have telephone conversation with Emi (Rosa) - patients primary POA and family has been in touch with her about events around this hospital stay. Rosa visits pt 4-5days/week, and is not physically able to handle her at home any longer, unless she is stronger. Patient is agreeable at this time to go to [facility]. Will continue to follow. (4) Sacral decubitus ulcer Current Visit: Yes Status: Acute Qualifiers: Pressure injury stage: stage 2 Qualified Code(s): L89.152 - Pressure ulcer of sacral region, stage 2 - Time Spent With Patient Total time spent is greater than 50% in coordination of care (as documented) at patient's floor/unit and/or counseling patient: 25 - 35 minutes - Subjective Interval history: Patient awake and alert, states she was able to eat a little breakfast. She is still emotional about having to go to ECF, and begins crying stating she wants to go home. Discussed again that she cannot go home in current weakened state with no caregiver, and that pursuing [facility] for therapy. If she improves and gets stronger, she can go home. Verbalized understanding. Patient is in some discomfort - she dislikes taking pain pills unless she has to. She is currently getting Fentanyl patch at 25mcg, however, her home dose is 50mcg. She is asking if she can have her home dose. - Constitutional Vitals: Abnormal lab results RBC 2.67 M/mcL (3.82-4.97) L 09/04/18 05:31 Hgb 8.6 g/dL (11.5-15.4) L D 09/04/18 05:31 Hct 27.6 % (35.3-44.9) L 09/04/18 05:31 MCV 103.4 fL (83.0-100.0) H 09/04/18 05:31 MCHC 31.2 g/dL (31.6-35.5) L 09/04/18 05:31 RDW 17.2 % (11.5-14.5) H 09/04/18 05:31 Lymphocytes # 0.4 K/mcL (0.6-4.6) L 09/04/18 05:31 PT 17.6 Seconds (9.4-12.1) H 09/04/18 05:31 APTT 38.3 Seconds (26.0-36.0) H 09/04/18 05:31 Chloride 109 mEq/L (98-107) H 09/04/18 05:31 Carbon Dioxide 20 mEq/L (23-29) L 09/04/18 05:31 BUN 32 mg/dL (8-23) H 09/04/18 05:31 Creatinine 1.32 mg/dL (0.60-1.20) H 09/04/18 05:31 Est GFR ( Amer) 48 (> 60) L 09/04/18 05:31 Est GFR (Non-Af Amer) 40 (> 60) L 09/04/18 05:31 Calculated Osmolality 301 (280-300) H 09/04/18 05:31 Calcium 7.7 mg/dL (8.6-10.3) L 09/04/18 05:31 Magnesium 1.1 mg/dL (1.6-2.6) L 09/04/18 05:31 Alkaline Phosphatase 160 Units/L (34-104) H 09/04/18 05:31 Troponin I 0.04 ng/mL (< 0.04) H* 09/04/18 05:31 Serum Total Protein 4.6 g/dL (6.4-8.9) L 09/04/18 05:31 Albumin 2.3 g/dL (3.5-5.7) L 09/04/18 05:31 Globulin 2.3 g/dL (2.4-3.5) L 09/04/18 05:31 Albumin/Globulin Ratio 1.0 (1.1-2.2) L 09/04/18 05:31 Urine Ketones Trace mg/dL (Negative) H 09/03/18 18:38 Urine Bilirubin Small (Negative) H 09/03/18 18:38 General appearance: Present: no acute distress - Respiratory Respiratory exam: Present: CTAB - Cardiovascular Cardiovascular exam: Present: +S1, +S2 - GI/Abdominal GI/Abdominal exam: Present: normal bowel sounds, soft - Extremities Exam Additional comments: 2+edema lower extremities bilaterally - Neurological Exam Neurological exam: Present: alert, oriented X3 (generalized weakness) - Skin Skin exam: Present: dry, pallor, warm Palliative Quality Palliative Quality: Screen for Code Status: Yes, Screen for Goals of Care: Yes, Screen for Pain: Yes, If Pain Regimen Started, Initiate Bowel Regimen: Yes, Scre en for Nausea/Vomitting: Yes Code Status: 09/03/18 20:45 Resuscitation Status: Active [RES] Routine Comment: Resuscitation Status: Full Code 09/05/18 16:12 DNR [Resuscitation Status: Active] [RES] Routine Comment: Resuscitation Status: DNR-Comfort Care - Labs CBC & Chem 7: 09/04/18 05:31 09/04/18 05:31 Labs: Laboratory Results - last 24 hr 09/05/18 09/05/18 09/05/18 09:16 11:11 12:40 POC Glucose 101 H 65 L 84 09/05/18 09/06/18 16:23 01:52 POC Glucose 115 H 98 - Impressions Impressions Retroperitoneum Ultrasound 09/05/18 13:00 IMPRESSION: Unremarkable ultrasound of the kidneys and urinary bladder. D/ / Darryl Salvador MD / Darryl Salvador MD Interpreting Provider: Darryl Salvador MD - ABG Interpretation ABG results: PT/INR, D-dimer PT 17.6 Seconds (9.4-12.1) H 09/04/18 05:31 Consult Discharge Plan - Plan Referrals: Olga Gallego, [employer] [facility] [Primary Care Provider] - 09/12/18 1:00 pm (web request sent on 09/04/18)
[2018-09-06] MEDS ORDERED: *HR* FentaNYL PATCH 50 MCG PATCH TD SCH (11:00)
--- NOTE | 2018-09-06 23:46 | Internal Med Progress Note ---
Hospitalist Progress Note - Encounter Date of Encounter: 09/06/18 Time of Encounter: 19:00 - Subjective Interval History: SUBJECTIVE: The patient feels good. She has been bedbound for quite some time. Her pain in sacral area seems to be under control. Denies chest pain and difficulty breathing she is on room air oxygen. OBJECTIVE: Skin: Free of rash and discoloration. See nursing notes for description of sacral area decub. ENMT: Oral/pharyngeal mucosa is normal in appearance. Eyes: Sclera is white. There is no discharge from eyes. Respiratory: Normal breath sounds; no crackles or wheezes. CV: Heart is regular; no gallop or murmur. GI: Abdomen is soft and not tender. There is no palpable mass or visceromegaly. Neuro: There is no focal deficits. ADDITIONAL DATA: We have not done any blood work for the last couple days. ASSESSMENT AND PLAN: Acute kidney injury. Basically resolved with IV fluids. Atrial fibrillation. Rate controlled. She is on amiodarone and Xarelto. Endometrial carcinoma. Considered to be late stage cancer. Palliative care only. DISPOSITION: We expect to have her bed for her in [facility] sometime tomorrow. - Exam Vitals: Temp Pulse Resp BP Pulse Ox 97.9 F 85 18 110/69 97 09/06/18 18:40 09/06/18 18:40 09/06/18 18:40 09/06/18 18:40 09/06/18 18:40 Exam: xx - Assessment and Plan (1) Acute kidney failure Current Visit: Yes Status: Acute (2) Atrial fibrillation Current Visit: Yes Status: Chronic (3) Endometrial adenocarcinoma Current Visit: Yes Status: Chronic (4) Sacral decubitus ulcer Current Visit: Yes Status: Acute (5) Failure to thrive Current Visit: Yes Status: Acute - Time Spent with Patient Total time spent is greater than 50% in coordination of care (as documented) at patient's floor/unit and/or counseling patient: 25 - 35 minutes Plan of Care Discussed with: patient Internal Medicine: Result - Labs CBC & Chem 7: 09/04/18 05:31 09/04/18 05:31 - ABG Interpretation ABG results: PT/INR, D-dimer PT 17.6 Seconds (9.4-12.1) H 09/04/18 05:31 Consult Discharge Plan - Plan Referrals: Olga Gallego CNP [Primary Care Provider] - 09/12/18 1:00 pm (web request sent on 09/04/18) (1) Acute kidney failure Qualifiers: Acute renal failure type: unspecified Qualified Code(s): N17.9 - Acute kidney failure, unspecified (2) Atrial fibrillation Qualifiers: Atrial fibrillation type: paroxysmal Qualified Code(s): I48.0 - Paroxysmal atrial fibrillation (4) Sacral decubitus ulcer Qualifiers: Pressure injury stage: stage 2 Qualified Code(s): L89.152 - Pressure ulcer of sacral region, stage 2 (5) Failure to thrive Qualifiers: Failure to thrive age range: in adult Qualified Code(s): R62.7 - Adult failure to thrive
[2018-09-07] MEDS: Insulin LISPRO 300 UNITS/3 ML VIAL SQ SCH ×3 (08:33→19:20)
[2018-09-07] MEDS: Gabapentin 100 MG CAPSULE PO SCH ×3 (08:36→20:06)
[2018-09-07] MEDS: Insulin DETEMIR 100 UNIT/ML X5UNITS SQ SCH ×2 (08:36→19:47)
[2018-09-07] MEDS: *HR* Rivaroxaban 15 MG TABLET PO SCH (08:36)
[2018-09-07] MEDS: *HR* Amiodarone 200 MG TABLET PO SCH (08:36)
[2018-09-07] MEDS: Cholecalciferol (D-3) 1,000 UNIT TABLET PO SCH (08:36)
--- NOTE | 2018-09-07 10:48 | Palliative Progress Note ---
Date of Encounter: 09/07/18 Time of Encounter: 09:15 - Assessment and plan (1) Cancer related pain Current Visit: Yes Status: Acute Assessment and plan: Continue Fentanyl patch at 50mcg with Hydromorphone tablets for breakthrough. Patient has not required any breakthrough medications last 48 hours. Monitor (2) Generalized weakness Current Visit: No Status: Acute Assessment and plan: PT/OT recommended ECF. (3) Advanced care planning/counseling discussion Current Visit: No Status: Acute Assessment and plan: Patient informed that [facility] does not have bed available. Next choice is [facility], - [facility] hopefully will have bed tomorrow. (4) Sacral decubitus ulcer Current Visit: Yes Status: Acute Qualifiers: Pressure injury stage: stage 2 Qualified Code(s): L89.152 - Pressure ulcer of sacral region, stage 2 - Time Spent With Patient Total time spent is greater than 50% in coordination of care (as documented) at patient's floor/unit and/or counseling patient: - Subjective Interval history: Patient awake and alert, states she was able to eat a little breakfast Just back to bed from having BM. In better spirits today. NO family present - Constitutional Vitals: Abnormal lab results RBC 2.67 M/mcL (3.82-4.97) L 09/04/18 05:31 Hgb 8.6 g/dL (11.5-15.4) L D 09/04/18 05:31 Hct 27.6 % (35.3-44.9) L 09/04/18 05:31 MCV 103.4 fL (83.0-100.0) H 09/04/18 05:31 MCHC 31.2 g/dL (31.6-35.5) L 09/04/18 05:31 RDW 17.2 % (11.5-14.5) H 09/04/18 05:31 Lymphocytes # 0.4 K/mcL (0.6-4.6) L 09/04/18 05:31 PT 17.6 Seconds (9.4-12.1) H 09/04/18 05:31 APTT 38.3 Seconds (26.0-36.0) H 09/04/18 05:31 Chloride 109 mEq/L (98-107) H 09/04/18 05:31 Carbon Dioxide 20 mEq/L (23-29) L 09/04/18 05:31 BUN 32 mg/dL (8-23) H 09/04/18 05:31 Creatinine 1.32 mg/dL (0.60-1.20) H 09/04/18 05:31 Est GFR ( Amer) 48 (> 60) L 09/04/18 05:31 Est GFR (Non-Af Amer) 40 (> 60) L 09/04/18 05:31 Calculated Osmolality 301 (280-300) H 09/04/18 05:31 Calcium 7.7 mg/dL (8.6-10.3) L 09/04/18 05:31 Magnesium 1.1 mg/dL (1.6-2.6) L 09/04/18 05:31 Alkaline Phosphatase 160 Units/L (34-104) H 09/04/18 05:31 Troponin I 0.04 ng/mL (< 0.04) H* 09/04/18 05:31 Serum Total Protein 4.6 g/dL (6.4-8.9) L 09/04/18 05:31 Albumin 2.3 g/dL (3.5-5.7) L 09/04/18 05:31 Globulin 2.3 g/dL (2.4-3.5) L 09/04/18 05:31 Albumin/Globulin Ratio 1.0 (1.1-2.2) L 09/04/18 05:31 Urine Ketones Trace mg/dL (Negative) H 09/03/18 18:38 Urine Bilirubin Small (Negative) H 09/03/18 18:38 General appearance: Present: no acute distress - Respiratory Respiratory exam: Present: decreased breath sounds, CTAB - Cardiovascular Cardiovascular exam: Present: +S1, +S2 - GI/Abdominal GI/Abdominal exam: Present: normal bowel sounds, soft, tenderness - Extremities Exam Additional comments: 1+ bilateral lower extremity edema. - Neurological Exam Neurological exam: Present: alert, oriented X3, strengths equal and symetr throughout - Skin Skin exam: Present: dry, pallor, warm Palliative Quality Palliative Quality: Screen for Code Status: Yes, Screen for Goals of Care: Yes, Screen for Pain: Yes, If Pain Regimen Started, Initiate Bowel Regimen: Yes, Sc reen for Nausea/Vomitting: Yes Code Status: 09/03/18 20:45 Resuscitation Status: Active [RES] Routine Comment: Resuscitation Status: Full Code 09/05/18 16:12 DNR [Resuscitation Status: Active] [RES] Routine Comment: Resuscitation Status: DNR-Comfort Care - Labs CBC & Chem 7: 09/04/18 05:31 09/04/18 05:31 Labs: Laboratory Results - last 24 hr 09/05/18 09/06/18 09/06/18 22:05 07:01 11:44 POC Glucose 89 117 H 139 H 09/06/18 09/06/18 16:45 20:26 POC Glucose 96 90 - ABG Interpretation ABG results: PT/INR, D-dimer PT 17.6 Seconds (9.4-12.1) H 09/04/18 05:31 Consult Discharge Plan - Plan Referrals: Olga Gallego, [employer] [Primary Care Provider] - 09/12/18 1:00 pm (web request sent on 09/04/18)
[2018-09-07] MEDS: Acetaminophen 325 MG TABLET PO PRN (11:43)
--- NOTE | 2018-09-07 23:10 | Internal Med Progress Note ---
Hospitalist Progress Note - Encounter Date of Encounter: 09/07/18 Time of Encounter: 19:00 - Subjective Interval History: SUBJECTIVE: The patient sleeps a lot. Her sacral area pain seems to be under control. No distress is seen. OBJECTIVE: Skin: Free of rash and discoloration. See nursing notes for description of sacral area decub. ENMT: Oral/pharyngeal mucosa is normal in appearance. Eyes: Sclera is white. There is no discharge from eyes. Respiratory: Normal breath sounds; no crackles or wheezes. CV: Heart is regular; no gallop or murmur. GI: Abdomen is soft and not tender. There is no palpable mass or visceromegaly. Neuro: There is no focal deficits. ADDITIONAL DATA: Fingersticks for glucose and show good glycemic control. ASSESSMENT AND PLAN: Acute kidney injury. Basically resolved with IV fluids. Atrial fibrillation. Rate controlled. She is on amiodarone and Xarelto. Endometrial carcinoma. Considered to be late stage cancer. Palliative care only. DISPOSITION: We could not get her to ECF today. It will likely happen tomorrow. - Exam Vitals: Temp Pulse Resp BP Pulse Ox 98.2 F 69 17 110/71 96 09/07/18 19:50 09/07/18 19:50 09/07/18 19:50 09/07/18 19:50 09/07/18 19:50 Exam: xx - Assessment and Plan (1) Acute kidney failure Current Visit: Yes Status: Acute (2) Atrial fibrillation Current Visit: Yes Status: Chronic (3) Endometrial adenocarcinoma Current Visit: Yes Status: Chronic (4) Sacral decubitus ulcer Current Visit: Yes Status: Acute (5) Failure to thrive Current Visit: Yes Status: Acute - Time Spent with Patient Total time spent is greater than 50% in coordination of care (as documented) at patient's floor/unit and/or counseling patient: 25 - 35 minutes Plan of Care Discussed with: patient Internal Medicine: Result - Labs CBC & Chem 7: 09/04/18 05:31 09/04/18 05:31 - ABG Interpretation ABG results: PT/INR, D-dimer PT 17.6 Seconds (9.4-12.1) H 09/04/18 05:31 Consult Discharge Plan - Plan Referrals: Olga Gallego CNP [Primary Care Provider] - 09/12/18 1:00 pm (web request sent on 09/04/18 Patient is going to [facility]) (1) Acute kidney failure Qualifiers: Acute renal failure type: unspecified Qualified Code(s): N17.9 - Acute kidney failure, unspecified (2) Atrial fibrillation Qualifiers: Atrial fibrillation type: paroxysmal Qualified Code(s): I48.0 - Paroxysmal atrial fibrillation (4) Sacral decubitus ulcer Qualifiers: Pressure injury stage: stage 2 Qualified Code(s): L89.152 - Pressure ulcer of sacral region, stage 2 (5) Failure to thrive Qualifiers: Failure to thrive age range: in adult Qualified Code(s): R62.7 - Adult failure to thrive
[2018-09-08] MEDS: Acetaminophen 325 MG TABLET PO PRN ×2 (04:58→13:46)
[2018-09-08] MEDS: Cholecalciferol (D-3) 1,000 UNIT TABLET PO SCH (08:27)
[2018-09-08] MEDS: *HR* Amiodarone 200 MG TABLET PO SCH (08:27)
[2018-09-08] MEDS: Insulin DETEMIR 100 UNIT/ML X5UNITS SQ SCH (08:28)
[2018-09-08] MEDS: *HR* Rivaroxaban 15 MG TABLET PO SCH (08:28)
[2018-09-08] MEDS: Insulin LISPRO 300 UNITS/3 ML VIAL SQ SCH ×2 (08:28→13:44)
[2018-09-08] MEDS: Gabapentin 100 MG CAPSULE PO SCH (08:28)
--- NOTE | 2018-09-08 09:32 | Discharge Summary ---
Date of Encounter: 09/08/18 Time of Encounter: 09:24 - Discharge Diagnosis (1) Acute kidney failure Priority: Primary Status: Acute Qualifiers: Acute renal failure type: unspecified Qualified Code(s): N17.9 - Acute kidney failure, unspecified (2) Atrial fibrillation Priority: Secondary Status: Chronic Qualifiers: Atrial fibrillation type: paroxysmal Qualified Code(s): I48.0 - Paroxysmal atrial fibrillation (3) Endometrial adenocarcinoma Priority: Secondary Status: Chronic (4) Sacral decubitus ulcer Priority: Secondary Status: Chronic Qualifiers: Pressure injury stage: stage 2 Qualified Code(s): L89.152 - Pressure ulcer of sacral region, stage 2 (5) Failure to thrive Priority: Primary Status: Chronic Qualifiers: Failure to thrive age range: in adult Qualified Code(s): R62.7 - Adult failure to thrive Hospital course: HOSPITAL COURSE: The patient is a 72 year old woman. She was brought to the hospital with progressing weakness; was not able to take care of herself at home. She has underlying endometrial adenocarcinoma. With found her to have acute kidney injury. We did not find her to have any active infection. The patient does have a stage I sacral decubitus ulcer. We gave her IV fluids. Her creatinine decreased from 1.85-1.32. She is mildly anemichemoglobin is 8.6. With her WBC of 5.7 thousand. She was slightly hypokalemic at admission; 3.7 giving her a potassium chloride. We started physical therapy here in the hospital. It will be continued at the alf facility. She will follow her oncologist at [facility] in [place]. CONDITION AT DISCHARGE: She feels good. Weak but stronger than at admission. Denies chest pain and difficulty breathing. Denies abdominal pain, nausea and vomiting. She makes good amounts of urine. Skin: Free of rash and discoloration. There is a small stage I decubitus wound in sacral area. Respiratory: Normal breath sounds with no crackles and wheezes bilaterally. CV: Heart is regular with no gallop or murmur. GI: Abdomen is flat and soft with no palpable mass or visceromegaly. Neuro exam: There is no focal deficits. She has normal speech and swallowing. She needs a walker/assistance for ambulation. SEE DISCHARGE ORDERS/MEDICATIONS She is discharged to a alf facility. - Time Spent with Patient Total time spent providing and/or coordinating discharge services: Greater than 30 minutes (35 minutes..) - Discharge Medications Prescriptions: HYDROmorphone [Dilaudid] 2 mg PO Q4HR PRN 7 Days #30 tablet PRN Reason: Breakthrough Pain FentaNYL PATCH [Duragesic] 50 mcg TD Q72H 7 Days #3 patch.td72 Gabapentin [Neurontin] 100 mg PO TID #21 capsule Home Medications: Insulin ASPART [Novolog Flexpen] 2 - 15 unit SQ TID PRN 06/01/16 [History] Metformin HCl [Glucophage] 1,000 mg PO BID 06/01/16 [History] Metoprolol [Lopressor] 25 mg PO BID 06/01/16 [History] Nitroglycerin [Nitrostat] 0.4 mg SL AD PRN 06/01/16 [History] Pravastatin Sodium [Pravachol] 40 mg PO HS 06/01/16 [History] Calcium Carbonate/Vitamin D3 [Calcium 500 + Vit D Caplet] 1 tab PO BID 04/19/18 [History] Insulin Glargine,Hum.rec.anlog [Basaglar Kwikpen U-100] 25 unit SQ HS 04/19/18 [History] Insulin Glargine,Hum.rec.anlog [Basaglar Kwikpen U-100] 35 unit SQ QAM 04/19/18 [History] Vitamin B Complex [B Complex] 1 tab PO DAILY 07/11/18 [History] Amiodarone [Cordarone] 200 mg PO DAILY #0 07/14/18 [Rx] Rivaroxaban [Xarelto] 20 mg PO DAILY #30 tablet 07/14/18 [Rx] Acetaminophen [Tylenol] 650 mg PO Q4H PRN 09/03/18 [History] FentaNYL PATCH [Duragesic] 50 mcg TD Q72H 09/03/18 [History] Gabapentin [Neurontin] 100 mg PO TID 09/03/18 [History] Hydromorphone HCl [Dilaudid] 2 mg PO Q4H PRN 09/03/18 [History] Furosemide [Lasix] 20 mg PO DAILY PRN 09/07/18 [History] Nystatin POWDER [Nystop] 1 appl TP BID PRN 09/07/18 [History] Polyethylene Glycol 3350 [MiraLAX Powder Bulk 17.9 Oz] 1 scoop PO DAILY PRN 09/07/18 [History] Potassium Chloride [K-Tab ER] 20 meq PO DAILY 09/07/18 [History] Sennosides [Senna] 8.6 mg PO DAILY PRN 09/07/18 [History] dilTIAZem HCl [Diltiazem HCl] 120 mg PO DAILY 09/07/18 [History] FentaNYL PATCH [Duragesic] 50 mcg TD Q72H 7 Days #3 patch.td72 09/08/18 [Rx] Gabapentin [Neurontin] 100 mg PO TID #21 capsule 09/08/18 [Rx] HYDROmorphone [Dilaudid] 2 mg PO Q4HR PRN 7 Days #30 tablet 09/08/18 [Rx] Miconazole 2% cream [Akil Antifungal] 1 appl TP BID tube 09/08/18 [Rx] Allergies/Adverse Reactions: Allergy/AdvReac Type Severity Reaction Status Date / Time oxycodone [From OxyContin] AdvReac Severe Hallucinati Verified 09/03/18 16:59 ng Date of admission: 09/03/18 19:02 Primary care physician: Olga Gallego CNP Consults: 09/03/18 20:50 Consult to Occupational Therapy [CONS] Routine Comment: Evaluate, develop and implement POC Reason for Consult: FTT; unable to care for self. Does patient have active BEDREST order?: No Is patient medically & hemodynamically stable?: Yes Patient assessed for mobility or mobilized this visit?: No Consult to Physical Therapy [CONS] Routine Comment: Evaluate, develop and implement POC Reason for Consult: FTT; unable to care for self. Does patient have active BEDREST order?: No Is patient medically & hemodynamically stable?: Yes Patient assessed for mobility or mobilized this visit?: No 09/03/18 20:56 Consult to Nutrition [CONS] Routine Comment: Consulting Provider: NUTRITION Reason for Dietary Consult: MST Score Consult to First Leveler [CONS] Routine Reason for SW Consult: Discharge planning. Patient reports that she thinks she is being set up with home visits at this time, but when asked which company, she replies "hospice". 09/03/18 21:12 Consult to Wound Care [CONS] Routine Reason for Consult: sacral decubitus Call Completed: No 09/05/18 14:07 Consult to Palliative Care [CONS] Routine Comment: Consulting Provider: Palliative Care Adela Reason for Consult: end of life care Call Completed: Yes Discharging clinician: Hernan Canela Anticipated date of discharge: 09/08/18 - Constitutional Vitals: Temp Pulse Resp BP Pulse Ox 98.4 F 67 18 99/56 96 09/08/18 06:59 09/08/18 06:59 09/08/18 06:59 09/08/18 06:59 09/08/18 06:59 General appearance: Present: A&O X 3, answers questions appropriately Exam: xx - Patient Status Disposition: Transfer SNF Condition: Fair Functional capacity at discharge: wheelchair bound Overall status at discharge: patient is back to baseline - Discharge Instructions Follow Up With: Olga Gallego CNP [Primary Care Provider] - 09/12/18 1:00 pm () Additional Instructions: A HOSPICE AT [facility] PATIENT.. - Diet and Activity Activity: other (A WHEEL-CHAIR BOUND..) Diet: diabetic diet - VTE Reasons for not Prescribing Prophylaxis: Not indicated-Anticoagulated or INR therapeutic Deep Vein Thrombosis/Pulmonary Embolism Present on Admission: No
--- NOTE | 2018-09-08 09:38 | Physician Discharge Referral ---
ExtendedCare Referral Info Transfer To: [facility] Provider in Charge: Leroy BARBOUR MD Provider in Charge after Transfer: Other (AN F PHYSICIAN..) - Diagnosis (1) Acute kidney failure Priority: Primary Status: Acute (2) Atrial fibrillation Priority: Secondary Status: Chronic (3) Endometrial adenocarcinoma Priority: Secondary Status: Chronic (4) Sacral decubitus ulcer Priority: Secondary Status: Chronic (5) Failure to thrive Priority: Secondary Status: Chronic Prognosis: Poor Aware of Diagnosis: Patient, Family Aware of Prognosis: Patient, Family - Transfer Medications Prescriptions: HYDROmorphone [Dilaudid] 2 mg PO Q4HR PRN 7 Days #30 tablet PRN Reason: Breakthrough Pain FentaNYL PATCH [Duragesic] 50 mcg TD Q72H 7 Days #3 patch.td72 Home Medications: Insulin ASPART [Novolog Flexpen] 2 - 15 unit SQ TID PRN 06/01/16 [History] Metformin HCl [Glucophage] 1,000 mg PO BID 06/01/16 [History] Metoprolol [Lopressor] 25 mg PO BID 06/01/16 [History] Nitroglycerin [Nitrostat] 0.4 mg SL AD PRN 06/01/16 [History] Pravastatin Sodium [Pravachol] 40 mg PO HS 06/01/16 [History] Calcium Carbonate/Vitamin D3 [Calcium 500 + Vit D Caplet] 1 tab PO BID 04/19/18 [History] Insulin Glargine,Hum.rec.anlog [Basaglar Kwikpen U-100] 25 unit SQ HS 04/19/18 [History] Insulin Glargine,Hum.rec.anlog [Basaglar Kwikpen U-100] 35 unit SQ QAM 04/19/18 [History] Vitamin B Complex [B Complex] 1 tab PO DAILY 07/11/18 [History] Amiodarone [Cordarone] 200 mg PO DAILY #0 07/14/18 [Rx] Rivaroxaban [Xarelto] 20 mg PO DAILY #30 tablet 07/14/18 [Rx] Acetaminophen [Tylenol] 650 mg PO Q4H PRN 09/03/18 [History] FentaNYL PATCH [Duragesic] 50 mcg TD Q72H 09/03/18 [History] Gabapentin [Neurontin] 100 mg PO TID 09/03/18 [History] Hydromorphone HCl [Dilaudid] 2 mg PO Q4H PRN 09/03/18 [History] Furosemide [Lasix] 20 mg PO DAILY PRN 09/07/18 [History] Nystatin POWDER [Nystop] 1 appl TP BID PRN 09/07/18 [History] Polyethylene Glycol 3350 [MiraLAX Powder Bulk 17.9 Oz] 1 scoop PO DAILY PRN 09/07/18 [History] Potassium Chloride [K-Tab ER] 20 meq PO DAILY 09/07/18 [History] Sennosides [Senna] 8.6 mg PO DAILY PRN 09/07/18 [History] dilTIAZem HCl [Diltiazem HCl] 120 mg PO DAILY 09/07/18 [History] FentaNYL PATCH [Duragesic] 50 mcg TD Q72H 7 Days #3 patch.td72 09/08/18 [Rx] HYDROmorphone [Dilaudid] 2 mg PO Q4HR PRN 7 Days #30 tablet 09/08/18 [Rx] Miconazole 2% cream [Akil Antifungal] 1 appl TP BID tube 09/08/18 [Rx] Allergies/Adverse Reactions: Allergy/AdvReac Type Severity Reaction Status Date / Time oxycodone [From OxyContin] AdvReac Severe Hallucinati Verified 09/03/18 16:59 ng - Respiratory Orders None Smoking Cessation: Smoking cessation has been advised. For more information, call the [place] Tobacco Quit Line at 2-348-FFAA-NOW. - Ancillary Orders May use pressure relief devices daily prn - Advance Directives Code Status: DNR-Comfort Care - Mobility Orders Other (A WHEEL-CHAIR BOUND) - Rehabiliation Orders Rehab Potential: Poor Rehab Orders: Evaluation for Physical Therapy, Evaluation for Occupational Therapy - Diet Orders No Concentrated Sweets CERTIFICATION: I certify that the transfer of the above named patient to an Extended Care Facility is necessary for the continuing treatment of the diagnosis listed. The above information is true and accurate reflection of patient's current condition . Confidential - Redisclosure prohibited without a patient's written consent.
--- NOTE | 2018-09-08 09:44 | Event Note ---
Date of Encounter: 09/08/18 Time of Encounter: 09:40 Patient has been accepted at [facility]. Can be discharged today. Prescriptions completed for Duragesic patches and Hydromorphone x1 week for transition to ECF. Patient sleeping quietly this am, I did not awaken her.
[2018-09-08 11:59] VITALS: BP 110/62
== END 2018-09-08 14:06 ==
LOC: 2ANU 16:48 → EMEROOARM 16:48 → SUATTDRO 19:02 → 2ANU 19:59
PROVIDERS: ADMIT Internal Medicine; ATTEND Internal Medicine